=== PATIENT | male | born 1970 | race Caucasian/White ===

== ENCOUNTER 2023-10-10 10:57 | Emergency (ER) | payer BC, SELFPAY ==
[2023-10-10 11:00] VITALS: BP 145/98; PULSE 79; TEMP 36.4; O2SAT 97; BMI 35.3
--- NOTE | 2023-10-10 11:10 | PC.NURSE ---
swelling to right wrist with a strong radial pulse
--- NOTE | 2023-10-10 11:12 | XR_ITS ---
The [address] [address] Patient Name: JOVANY HOWELL MRN: [id number] date: 1970 Sex: M Assigned Patient Location: ED.MAIN Current Patient Location: ER Accession/Order Number: [id number] Exam Date: 10/10/2023 11:42 Report Date: 10/10/2023 12:18 At the request of: GEMMA BRODERICK Procedure: XR wrist RT min 3V EXAM: XR wrist RT min 3V HISTORY: pain and swelling and hx of surgery . Pain and swelling for the past 6 days. COMPARISON: None. TECHNIQUE: 3 views of the right wrist were obtained. FINDINGS: There is no apparent acute fracture or dislocation. There is diffuse narrowing of the radial scaphoid joint space and degenerative changes are seen throughout the wrist. There is widening of the scapholunate joint space with evidence of surgery and anchor sutures in place. Ulnar minus variance is present. No abnormal soft tissue calcifications are present. XR/XR wrist RT min 3V IMPRESSION: No acute fracture or dislocation. Significant degenerative changes are seen throughout the wrist. There is widening of the scapholunate joint space with evidence of prior surgery. Direct comparison with a previous study may be helpful in determining the chronicity of these findings. Electronically authenticated by: ROBYN ARAUJO Date: 10/10/2023 12:18
--- NOTE | 2023-10-10 13:27 | ED_ITS ---
HPI - Extremity Problem General Chief complaint: Extremity Problem, Nontraumatic Stated complaint: RT HAND PAIN Time Seen by Provider: 10/10/23 11:04 History of Present Illness HPI Narrative: The patient comes to the ER with right wrist pain that he is mentioned that started over the last few days,, he mentioned that he used to take indomethacin that he is almost running out of it for gout, he denies any fall or trauma, but he does have a history of previous surgery in that wrist with a possible scaphoid fracture as the patient was not able to tell me exactly what was surgery for Related Data Home Medications ?Medication ?Instructions ?Recorded ?Confirmed indomethacin 50 mg capsule 50 mg PO TID 10/10/23 10/10/23 Previous Rx's ?Medication ?Instructions ?Recorded amoxicillin 875 mg-potassium 1 tab PO BID 7 days #14 tabs 10/10/23 clavulanate 125 mg tablet prednisone 20 mg tablet 40 mg (2 x 20 mg) PO DAILY 5 days 10/10/23 #10 tabs Allergies Allergy/AdvReac Type Severity Reaction Status Date / Time labetalol Allergy Severe Verified 10/10/23 11:08 Review of Systems ROS Status of ROS 10 or more systems reviewed and unremark able except as noted in history and below Exam Narrative Exam Narrative: Nurses notes and vital signs reviewed and patient is not hypoxic. General: Well-appearing and in no apparent distress. Skin: Warm, dry, no pallor noted. No rash. Head: Normocephalic, atraumatic. Neck: Supple, non-tender. Eye: Pupils are equal, round and EOMI. No scleral icterus. Ears, Nose, Mouth, and Throat: TM are clear, no nasal mucosal hypertrophy. Oral mucosa is moist, no posterior oropharynx erythema, uvula is mid-line Cardiovascular: Regular Rate and Rhythm without murmur, gallop or rub. Respiratory: No accessory muscle use or respiratory distress. Lungs are clear to auscultation, no wheezing, rales or rhonchi Chest Wall: no tenderness Back: No midline thoracic or lumbar vertebral tenderness. No CVA tenderness Musculoskeletal: normal ROM, no calf or popliteal tenderness, no lower extremity edema/swelling, right upper extremity the patient have a tenderness upon palpation of the right wrist mostly medially with mild redness there is no hotness, there is a scar of previous surgery and there is limitation of flexion due to the swelling, GI: Abdomen is soft, non-distended. Normal bowel sounds. No masses appreciated. No tenderness to palpation. No rebound, guarding, or rigidity noted. Neurological: A&O x4. No cranial nerve dysfunction observed. No truncal ataxia. Moves all extremities. Sensation intact. Psychiatric: Cooperative and interactive. Normal mood and affect. Constitutional Vital Signs, click to edit/add: Last Vital Signs Temp 97.6 F 10/10/23 11:00 Pulse 79 10/10/23 11:00 Resp 18 10/10/23 11:00 BP 145/98 H 10/10/23 11:00 Pulse Ox 97 10/10/23 11:00 O2 Del Method Room Air 10/10/23 11:00 Course Vital Signs Vital signs: Vital Signs Temperature 97.6 F 10/10/23 11:00 Pulse Rate 79 10/10/23 11:00 Respiratory Rate 18 10/10/23 11:00 Blood Pressure 145/98 H 10/10/23 11:00 Pulse Oximetry 97 10/10/23 11:00 Oxygen Delivery Method Room Air 10/10/23 11:00 Temperature 97.6 F 10/10/23 11:00 Pulse Rate 79 10/10/23 11:00 Respiratory Rate 18 10/10/23 11:00 Blood Pressure 145/98 H 10/10/23 11:00 Pulse Oximetry 97 10/10/23 11:00 Oxygen Delivery Method Room Air 10/10/23 11:00 MDM - Extremity (Nontraumatic) MDM Narrative Medical decision making narrative: The patient denies any systemic symptoms of infection his x-ray in the right wrist showed no acute significant pathology but there is no comparison x-ray Right now the patient was treated with prednisone he is to take Tylenol with that for pain ,he also be covered with Augmentin just because of his high risk of infection as a prophylaxis Velcro splint applied and the patient will follow-up with his doctor within a week Patient instructed about any fever chills or increasing redness he is to come back to the ER Discharge Plan Discharge Stand Alone Forms: Portal Instructions Chief Complaint: Extremity Problem, Nontraumatic Clinical Impression: Gout Qualifiers: Gout site: wrist Gout etiology: unspecified cause Chronicity: acute Laterality: right Qualified Code(s): M10.9 - Gout, unspecified Patient Disposition: Home, Self-Care Time of Disposition Decision: 12:36 Condition: Good Mode of Transportation: Private Vehicle Prescriptions / Home Meds: New prednisone 20 mg tablet 40 mg PO DAILY 5 Days Qty: 10 0RF amoxicillin-pot clavulanate 875-125 mg tablet 1 tab PO BID 7 Days Qty: 14 0RF No Action indomethacin 50 mg capsule 50 mg PO TID Rx Instructions: administer with food or milk Print Language: [place] Citizen Instructions: Gout (ED) Referrals: MOY TERESA [Primary Care Provider] - 1 week Discharge Date/Time: 10/10/23 12:56
== END 2023-10-10 12:56 | disposition home or self-care (01) ==
PROVIDERS: Emergency Provider Emergency Medicine; PCP Family Medicine
DX: M10.9 Gout, unspecified (principal)
CPT/HCPCS: 73110; 99283

== ENCOUNTER 2025-03-18 10:12 | Outpatient (OUT) | payer OTHER, SELFPAY ==
--- OUTSIDE RECORDS SUMMARY | 2025-03-18 09:30 | XMS_ITS | Encounter Summary ---
Author Organization [facility] Address [address] [place] [address] Care Team Providers Care Lav Crewman Name Role Phone Favio Andujar MD Primary Care Provider + [phone] Reason for Visit * ReasonCommentsBack Pain Encounter Details DateTypeDepartmentCare Team (Latest Contact Info)Eyxqslzhcbs58/03/2025 9:30 AM ESTOffice Visit [facility] [place] [address] [facility] 112 [facility] [address] [place] [address] Favio Andujar MD 112 [facility] 100 [place] [address] (Fax) RUQ abdominal pain (Primary Dx) Social History Tobacco UseTypesPacks/DayYears UsedDateSmoking Tobacco: NeverSmokeless Tobacco: Never Tobacco Cessation:Counseling Given: Yes Alcohol UseStandard Drinks/WeekCommentsYes2 (1 standard drink = 0.6 oz pure alcohol)Sex and Gender InformationValueDate RecordedSex Assigned at BirthNot on fileLegal FtgKhoi5407/28/2022 6:54 PM EDTGender IdentityNot on fileSexual OrientationNot on filedocumented as of this encounter Last Filed Vital Signs Vital SignReadingTime TakenCommentsBlood Pressure--Pulse--Temperature-- Respiratory Rate--Oxygen Saturation--Inhaled Oxygen Concentration--Plpile900 kg (268 lb)03/18/2025 9:49 AM JPSMxnadw800.9 cm (6')03/18/2025 9:49 AM ESTBody Mass Index36.35105/18/2024 9:49 AM ESTdocumented in this encounter Plan of Treatment DateTypeDepartmentCare Team (Latest Contact Info)Gblqvhkuvgw42/04/2026 3:00 PM ESTOffice Visit [facility] [address] [place] [address] Domitila Napier MD [address] [place] [address] NameTypePriorityAssociated DiagnosesOrder ScheduleCBC and differentialLabSTAT RUQ abdominal pain Expected: 03/18/2025 (Approximate), Expires: 03/18/2026Hepatic function panelLab STAT RUQ abdominal pain Expected: 03/18/2025 (Approximate), Expires: 03/18/2026LipaseLabSTAT RUQ abdominal pain Expected: 03/18/2025 (Approximate), Expires: 03/18/2026documented as of this encounter Visit Diagnoses Diagnosis RUQ abdominal pain- Primary Abdominal pain, right upper quadrant documented in this encounter Care Teams Team MemberRelationshipSpecialtyStart DateEnd Date Favio Andujar MD [address] [address] PCP - GeneralFamily Uwjwiiic24/3/25documented as of this encounter
--- OUTSIDE RECORDS SUMMARY | 2025-03-18 10:18 | XMS_ITS | Encounter Summary ---
Author Organization [facility] Address [address] [place] [address] Care Team Providers Care Superintendent Storage Area Name Role Phone Favio Andujar MD Primary Care Provider [phone] Encounter Details DateTypeDepartmentCare Team (Latest Contact Info)Gwrskfdqlba47/03/2025amboo flowsheet [facility] [place] [address] Family Medicine [address] [place] [address] Favio Andujar MD [address] [place] [address] Social History Tobacco UseTypesPacks/DayYears UsedDateSmoking Tobacco: NeverSmokeless Tobacco: NeverAlcohol UseStandard Drinks/WeekCommentsYes2 (1 standard drink = 0.6 oz pure alcohol)Sex and Gender InformationValueDate RecordedSex Assigned at BirthNot on fileLegal FatXzje8807/28/2022 6:54 PM EDTGender IdentityNot on fileSexual OrientationNot on filedocumented as of this encounter Plan of Treatment DateTypeDepartmentCare Team (Latest Contact Info)Ksmppynldac31/04/2026 3:00 PM ESTOffice Visit [facility] [address] [place] [address] Domitila Napier MD [address] [place] [address] documented as of this encounter Visit Diagnoses Not on filedocumented in this encounter Care Teams Team MemberRelationshipSpecialtyStart DateEnd Date Favio Andujar MD [address] [address] PCP - GeneralFamily Peiacrbm67/3/25documented as of this encounter
--- OUTSIDE RECORDS SUMMARY | 2025-03-18 10:18 | XMS_ITS | Encounter Summary ---
Author Organization [facility] Address [address] [place] [address] Care Team Providers Care Program Coordinator Name Role Phone Favio Andujar MD Primary Care Provider + [phone] Encounter Details DateTypeDepartmentCare Team (Latest Contact Info)Jdtzcywjlgp48/03/2025Travel Social History Tobacco UseTypesPacks/DayYears UsedDateSmoking Tobacco: NeverSmokeless Tobacco: NeverAlcohol UseStandard Drinks/WeekCommentsYes2 (1 standard drink = 0.6 oz pure alcohol)Sex and Gender InformationValueDate RecordedSex Assigned at BirthNot on fileLegal IqyJtgz6507/28/2022 6:54 PM EDTGender IdentityNot on fileSexual OrientationNot on filedocumented as of this encounter Plan of Treatment DateTypeDepartmentCare Team (Latest Contact Info)Lsilfhzlneq82/04/2026 3:00 PM ESTOffice Visit [facility] [address] [facility] [address] [place] [address] Domitila Napier MD [address] [facility] [address] [place] [address] documented as of this encounter Visit Diagnoses Not on filedocumented in this encounter Care Teams Team MemberRelationshipSpecialtyStart DateEnd Date Favio Andujar MD [address] [place] [address] [place] [address] PCP - GeneralFamily Muyszayp82/3/25documented as of this encounter
--- OUTSIDE RECORDS SUMMARY | 2025-03-18 10:18 | XMS_ITS | Clinical Summary ---
Author Organization [facility] Address [address] [place] [address] Care Team Providers Care Director Safety Name Role Phone Favio Andujar MD Primary Care Provider [phone] Allergies Active AllergyReactionsCriticalityNoted OkqhMabrgwofMsfprgosv78/11/2023 Other Reaction(s): heart stopped Medications MedicationSigDispense QuantityRefillsLast FilledStart DateEnd DateStatus ibuprofen 200 MG tablet Take 200 mg by mouth in the morning and 200 mg in the evening and 200 mg before bedtime.Active acetaminophen (Tylenol) 500 MG tablet Take 1,000 mg by mouth every 6 (six) hours if needed for mild painActive indomethacin (Indocin) 50 MG capsule Take 50 mg by mouth in the morning and 50 mg in the evening. Take with meals. Active cholecalciferol (Vitamin D-[address]) 25 MCG (1000 UT) tablet Take 1,000 Units by mouth in the morning.Active cyanocobalamin (Vitamin B-12) 250 MCG tablet Take 250 mcg by mouth in the morning.Active Docusate Sodium (DSS) 100 MG capsule Take 100 mg by mouth in the morning and 100 mg in the evening.07/12/2024tive zinc gluconate 50 MG tablet Take 50 mg of elemental zinc by mouth in the morning.Active aspirin 325 MG EC tablet Take 325 mg by mouth in the morning and 325 mg in the evening.07/12/2024 03/18/2025Discontinued(Med list cleanup) gabapentin (Neurontin) 300 MG capsule Take 300 mg by mouth at cwawsag59Discontinued(Med list cleanup) magnesium lactate CR (Magtab) 84 MG (7MEQ) ER tablet Take 84 mg by mouth in the morning.03/18/2025Discontinued meloxicam (Mobic) 15 MG tablet Take 15 mg by mouth Daily as qmmvch22Discontinued(Med list cleanup) oxyCODONE (Roxicodone) 5 MG immediate release tablet Take 5 mg by mouth every 6 (six) hours if ssfjwo64Discontinued (Med list cleanup) Active Problems ProblemNoted DateDiagnosed DateLoss of rypnjj6506/25/2024Testosterone deficiency 06/25/2024Excess estrogen in male06/25/2024History of closed dislocation of soieieua62/05/2025Non morbid obesity due to excess bremtsnl22/17/2024icuspid aortic valve (HHS-HCC)11/23/2022hronic htowilg5811/23/2022hronic rhinitis 11/23/2022Heart enitqj4411/23/2022Internal /11/2023Irritable bowel syndrome with fanyfgbw93/11/2023Mild intermittent asthma without complication 11/23/2022Mixed nxbicctmnxev54/11/2023Morbid obesity due to excess calories 11/23/2022Nonrheumatic aortic valve ghcshjiehkshp44/11/2023OSA (obstructive sleep apnea)11/23/2022ulmonary ycevfpcapscj44/11/2023Seborrheic keratoses 11/23/2022Stage 2 chronic kidney embqhyq3111/23/20227911Gihnghlyglaik26/30/2023 Resolved Problems ProblemNoted DateDiagnosed DateResolved DateSpecial screening for malignant neoplasms, colon/cute gout/ Encounters DateTypeDepartmentCare JybuWtkkqyqpqns85/03/2025 9:30 AM ESTOffice Visit [facility] [place] [address] [place] [address] Favio Andujar MD RUQ abdominal pain (Primary Dx)03/18/2025amboo flowsheet [facility] [place] [address] [facility] [address] [facility] [address] [place] [address] Favio Andujar MD 03/18/20254073Ygjmxp99/19/2025Orders Only [facility] [address] [place] [address] Favio Andujar MD 02/28/2025Telephone [facility] [place] [address] [facility] Medicine [address] [facility] [address] [place] [address] Bernabe Jailyn, KELVIN from Last 3 Months Family History Medical HistoryRelationNameCommentsNo Known ProblemsChild2 sons, 1 daughter ArrhythmiaFatherDiabetesFatherNo Known ProblemsMaternal GrandmotherNo Known ProblemsMotherBreast cancerNeg HxColon cancerNeg HxMelanomaNeg HxOvarian cancer Neg HxRelationNameStatusCommentsChildAliveDaughterAliveFatherAliveMaternal GrandmotherMotherAliveSonAlivex2 Social History Tobacco UseTypesPacks/DayYears UsedDateSmoking Tobacco: NeverSmokeless Tobacco: Never Tobacco Cessation:Counseling Given: Yes Alcohol UseStandard Drinks/WeekCommentsYes2 (1 standard drink = 0.6 oz pure alcohol)Sex and Gender InformationValueDate RecordedSex Assigned at BirthNot on fileLegal OxrXajy7807/28/2022 6:54 PM EDTGender IdentityNot on fileSexual OrientationNot on file Last Filed Vital Signs Vital SignReadingTime TakenCommentsBlood Veivxgez776/8808 3:04 PM EDT Pulse--Temperature--Respiratory Rate--Oxygen Saturation--Inhaled Oxygen Concentration--Ykjuqy238 kg (268 lb)03/18/2025 9:49 AM QHEAagzre202.9 cm (6') 03/18/2025 9:49 AM ESTBody Mass Index36.35105/18/2024 9:49 AM EST Plan of Treatment DateTypeDepartmentCare Team (Latest Contact Info)Wuyjyorsbdf54/04/2026 3:00 PM ESTOffice Visit [facility] [address] [place] [address] Domitila Napier MD [address] [place] [address] Health MaintenanceDue DateLast DoneCommentsCT Yppywblhegqn1972FIT-DNA 1970FIT1970FOBT1970 6899Eqxaxztnuifzr1972Influenza Vaccine (#1)2025Postponed from 01/14/2025 (Patient Refused)Yiqvjmcwikd75/13/2033 01/26/2023olorectal Cancer Pridkbgnu54/13/2033COVID-19 VaccineDiscontinued 1Pneumococcal Vaccine: Pediatrics (0 to 5 Years) and At-Risk Patients (6 to 64 Years)Discontinued Procedures Procedure NamePriorityDate/TimeAssociated DiagnosisCommentsHM COLONOSCOPYRoutine 01/26/2023 10:32 PM EDTfrom Last 3 Months or Most Recently Relevant to Health Maintenance Results * Colonoscopy (01/26/2023 10:32 PM EDT)Anatomical RegionLateralityModality Other Narrative Authorizing ProviderResult TypeResult StatusEdingris Andujar MDHEALTH MAINTENANCEFinal Result from Last 3 Months or Most Recently Relevant to Health Maintenance Insurance * Guarantor: Sagar Lopezcocheng TypeRelation to PatientDate of BirthPhoneBilling AddressPersonal/ClxucvHlzj1970 [address] [address] Care Teams Team MemberRelationshipSpecialtyStart DateEnd Date Favio Andujar MD [address] [address] [facility] Wmyjfhbg67/3/25
--- OUTSIDE RECORDS SUMMARY | 2025-03-18 10:19 | XMS_ITS | Clinical Summary ---
Author Organization [facility] Address [address] [place] [address] Care Team Providers Care Molded Grid And Parts Inspector Name Role Phone Unavailable Primary Care Provider Unavailabl e Social History Tobacco UseTypesPacks/DayYears UsedDateSmoking Tobacco: Never AssessedUT Safety & EnvironmentAnswerDate RecordedFear of Current or Ex-PartnerNot on file 07/07/2023Emotionally AbusedNot on file07/07/2023hysically AbusedNot on file 07/07/2023Sexually AbusedNot on file07/07/2023hysically or Sexually AbusedNot on file07/07/2023Sex and Gender InformationValueDate RecordedSex Assigned at BirthNot on fileLegal KecJgys2511/11/2021 9:32 PM EDTGender IdentityNot on file Sexual OrientationNot on file Plan of Treatment Not on file
--- OUTSIDE RECORDS SUMMARY | 2025-03-18 10:19 | XMS_ITS | Clinical Summary ---
Author Organization [facility] Address [address] [place] [address] Phone Care Team Providers Care Machine Rug Cleaner Name Role Phone Favio Andujar MD Primary Care Provider + [phone] Allergies Active AllergyReactionsCriticalityNoted DateCommentsLabetalolCardiac arrhythmia/cvcogn8806/20/2024 Medications MedicationSigDispense QuantityRefillsLast FilledStart DateEnd DateStatus cholecalciferol (Vitamin D3) 25 mcg (1000 units) tablet Take 1 tablet (1,000 Units) by mouth once daily.Active cyanocobalamin (Vitamin B-12) 250 mcg tablet Take 1 tablet (250 mcg) by mouth once daily.Active magnesium lactate CR (Magtab) 84 mg ER tablet Take 1 tablet (84 mg) by mouth once daily.Active zinc gluconate 50 mg tablet Take 1 tablet (50 mg of elemental zinc) by mouth once daily.Active krill/om-3/dha/epa/phospho/ast (OMEGA-3 KRILL OIL ORAL) Take 1 Dose by mouth once daily.Active gabapentin (Neurontin) 300 mg capsule Indications:Acute post-operative painTake 1 capsule (300 mg) by mouth once daily at bedtime. 5 capsule 07/12/2024 4:00 PM EST5Active acetaminophen (Tylenol) 500 mg tablet Indications:Acute post-operative painTake 2 tablets (1,000 mg) by mouth every 8 hours if needed for mild pain (1 - 3). 90 tablet 07/12/2024 4:00 PM EST5Active meloxicam (Mobic) 15 mg tablet Indications:Acute post-operative painTake 1 tablet (15 mg) by mouth once daily as needed (for pain). 20 tablet 07/12/2024 4:00 PM EST5Active oxyCODONE (Roxicodone) 5 mg immediate release tablet Indications:Acute post-operative painTake 1 tablet (5 mg) by mouth every 6 hours if needed for severe pain (7 - 10). 28 tablet 07/12/2024 4:00 PM EST5Active docusate sodium (Colace) 100 mg capsule Indications:Acute post-operative painTake 1 capsule (100 mg) by mouth 2 times a day. While taking narcotic pain medication (oxycodone) to prevent constipation 20 capsule 07/12/2024 4:00 PM EST5Active aspirin 325 mg EC tablet Indications:Acute post-operative painTake 1 tablet (325 mg) by mouth 2 times a day. For four weeks to prevent blood clots 56 tablet 07/12/2024 4:00 PM EST5Active Active Problems ProblemNoted DateDiagnosed DateComplete tear of right rotator cuff06/22/2024 Incomplete tear of right rotator cuff06/22/2024iceps tendinitis of right pbkupzqh87/07/2025Impingement syndrome of right vfnljekd38/07/2025Labral tear of shoulder, right, initial bzsodjmzg51/07/2025rthralgia of right acromioclavicular joint06/22/2024Traumatic complete tear of right rotator cuff 06/22/2024 Social History Tobacco UseTypesPacks/DayYears UsedDateSmoking Tobacco: NeverSmokeless Tobacco: Never Tobacco Cessation:Counseling Given: Not Answered Alcohol UseStandard Drinks/WeekCommentsYes0 (1 standard drink = 0.6 oz pure alcohol)rareSex and Gender InformationValueDate RecordedSex Assigned at BirthNot on fileLegal IkdCvwg6606/18/2024 9:01 AM ESTGender IdentityNot on fileSexual OrientationNot on file Last Filed Vital Signs Vital SignReadingTime TakenCommentsBlood Wuqbynij413/7907/12/2024 4:30 PM EST Tjthv970207/12/2024 4:30 PM SEPWsgixrcntlt57.6 ??C (97.9 ??F)07/12/2024 3:18 PM ESTRespiratory Eucr157407/12/2024 3:48 PM ESTOxygen Uerpqufnxd56%07/12/2024 4:30 PM ESTInhaled Oxygen Concentration--Wpuggt049 kg (264 lb)10/31/2024 2:51 PM EDT Fyernw391.9 cm (6')10/31/2024 2:51 PM EDTBody Mass Index35.8010/31/2024 2:51 PM EDT Plan of Treatment Health MaintenanceDue DateLast DoneCommentsCT Pwqxtilssotk1972Colonoscopy 1972Colorectal Cancer Iyzrybrno1972FIT-DNA (Cologuard)1972FIT 1972HIV Tzrlrugxf1972Lipid Panel1972 1409Dxplsuskvqrtn1972 Yearly Adult Fgpzidny1972MMR Vaccines (1 of 1 - Standard series)02/18/1973 Hepatitis C Vzlsnohei08/06/1990CKD: Urine Protein Dgaypjoso80/06/1991Hepatitis B Vaccines (1 of 3 - 19+ 3-dose series)02/18/1991Pneumococcal Vaccine (1 of 2 - PCV)02/18/1991DTaP/Tdap/Td Vaccines (1 - Tdap)02/18/1994PSA Prostate Cancer Kdynzdwah84/06/2022Zoster Vaccines (1 of 2)02/18/2022Influenza Vaccine (#1) 5COVID-19 Vaccine (2 - season)5001/14/2021iabetes Clzibwcyg67HIB VaccinesAged OutNo longer eligible based on patient's age to complete this topicHPV VaccinesAged OutNo longer eligible based on patient's age to complete this topicHepatitis A VaccinesAged OutNo longer eligible based on patient's age to complete this topicIPV VaccinesAged OutNo longer eligible based on patient's age to complete this topicMeningococcal VaccineAged OutNo longer eligible based on patient's age to complete this topic Rotavirus VaccinesAged OutNo longer eligible based on patient's age to complete this topic Medical Devices ImplantedTypeAreaManufacturerDevice IdentifierShelf Expiration DateModel / Serial / LotAnchor, Versaloop, 2 Suture, 2.5mm - Sna - [id number] Implanted:Qty: 1 on 07/12/2024 by Ramin Howard MD at [facility] ImplantRight: ShoulderJ & J DEPUY [id number] / NA / [id number], Versaloop, 2 Suture, 2.5mm - Sna - [id number] Implanted:Qty: 1 on 07/12/2024 by Ramin Howard MD at [facility] ImplantRight: ShoulderJ & J DEPUY [id number]//[id number] / NA / [id number], Healix, 5.5 Adv Sp Bioc - Sna - [id number] Implanted:Qty: 1 on 07/12/2024 by Ramin Howard MD at [facility] ImplantRight: ShoulderJ & J DEPUY [id number] / NA / 100MCSAnchor, Healix, 5.5 Adv Sp Bioc - Sna - [id number] Implanted:Qty: 1 on 07/12/2024 by Ramin Howard MD at [facility] ImplantRight: ShoulderJ & J DEPUY [id number] / NA / [id number], [place], Advance, 8 X 23mm - Sna - [id number] Implanted:Qty: 1 on 07/12/2024 by Ramin Howard MD at [facility] ScrewRight: ShoulderJ & J DEPUY [id number] / NA / [id number] Procedures Procedure NamePriorityDate/TimeAssociated DiagnosisCommentsBASIC METABOLIC PANEL Gfxkxki9307/05/2024 1:52 PM EST Preoperative examination Complete tear of right rotator cuff, unspecified whether traumatic from Last 3 Months or Most Recently Relevant to Health Maintenance Results * (ABNORMAL) Basic Metabolic Panel (07/05/2024 1:52 PM EST)ComponentValueRef RangeTest MethodAnalysis TimePerformed AtPathologist EbjqmzqvjXqqljms554(H)74 - 99 mg/dL LAB CHEMISTRY METHOD 07/05/2024 2:35 PM [facility] FLDGgsvcv217919 - 145 mmol/L LAB CHEMISTRY METHOD 07/05/2024 2:35 PM [facility] LABPotassium4.23.5 - 5.3 mmol/L LAB CHEMISTRY METHOD 07/05/2024 2:35 PM [facility] WUKKxljgnsk21375 - 107 mmol/L LAB CHEMISTRY METHOD 07/05/2024 2:35 PM [facility] UUJOcjpbabffpk3093 - 32 mmol/L LAB CHEMISTRY METHOD 07/05/2024 2:35 PM [facility] LABAnion Ddv1620 - 20 mmol/L LAB CHEMISTRY METHOD 07/05/2024 2:35 PM [facility] LABUrea Kvhqlfrr632 - 23 mg/dL LAB CHEMISTRY METHOD 07/05/2024 2:35 PM [facility] LABCreatinine0.930.50 - 1.30 mg/dL LAB CHEMISTRY METHOD 07/05/2024 2:35 PM [facility] LABeGFR>90>60 mL/min/1.73m*2 LAB CHEMISTRY METHOD 07/05/2024 2:35 PM [facility] LABComment: Calculations of estimated GFR are performed using the 2020 CKD-EPI Study Refit equation without therace variable for the IDMS-Traceable creatinine methods. https://jasn.asnjournals.org/content//ASN.1519890409 Calcium9.58.6 - 10.3 mg/dL LAB CHEMISTRY METHOD 07/05/2024 2:35 PM [facility] LABSpecimen (Source)Anatomical Location / LateralityCollection Method / VolumeCollection TimeReceived TimeBlood Venous blood specimen / UnknownVenipuncture / Nbtxdkr0607/05/2024 1:52 PM EST 07/05/2024 2:14 PM EST Narrative Authorizing ProviderResult TypeResult StatusHelena Edwards HOME BASED ASSISTANT-CNPLAB BLOOD ORDERABLESFinal ResultPerforming OrganizationAddressCity/State/ZIP CodePhone Number [facility] [address] [place] [address] from Last 3 Months or Most Recently Relevant to Health Maintenance Insurance * Guarantor: Jules Lopez TypeRelation to PatientDate of BirthPhoneBilling AddressPersonal/OiolsbUxql[address] [place], [place] [id number] MemberSubscriberPlan / Payer (Effective 2024-Present)Name:Sagar Lopez Relation to Subscriber:SelfName:Sagar Lopez Payer ID:[id number] (NAIC) Type:Not on file Address: [address] [place], [place] [id number] * Guarantor: Jules Lopez TypeRelation to PatientDate of BirthPhoneBilling AddressPersonal/QhvlzvRlav[address] [place] [id number] Care Teams Team MemberRelationshipSpecialtyStart DateEnd Favio Childers MD [address] [place] [address] PCP - GeneralFamily Medicine07/03/24
[2025-03-18 10:40] LABS: Hematocrit 47.4 % (42.0-54.0); Hemoglobin 16.5 g/dL (14.0-18.0); Immature Granulocytes Abs Auto 0.02 10^3/uL (0.00-0.03); Immature Granulocytes Pct Auto 0.3 % (0.0-0.5); Lymphocytes Absolute Auto 1.5 10^3/uL (1.2-3.8); Mean Corpuscular HGB Conc 34.8 g/dL (29.9-35.2); Mean Corpuscular Hemoglobin 30.7 pg (25.9-34.0); Mean Corpuscular Volume 88.1 fL (80.0-94.0); Platelet Count 240 10^3/uL (150-450); Red Blood Count 5.38 10^6/uL (4.70-6.10); White Blood Count 6.6 10^3/uL (4.0-11.0)
[2025-03-18 10:59] LABS: Alanine Aminotransferase 61 U/L (16-63); Albumin Globulin Ratio 1.2; Albumin Level 4.2 g/dL (3.4-5.0); Alkaline Phosphatase 89 U/L (46-116); Aspartate Amino Transferase 24 U/L (15-37); Globulin 3.5 g/dL; Lipase 40.0 U/L (16.0-77.0); Total Protein 7.7 g/dL (6.4-8.2)
== END 2025-03-18 10:13 | disposition home or self-care (01) ==
LOC: LAB 10:15
PROVIDERS: PCP Family Medicine; Visit Provider Family Medicine
DX: R10.11 Right upper quadrant pain (principal)
CPT/HCPCS: 36415; 80076; 83690; 85025

== ENCOUNTER 2025-04-09 07:38 | Outpatient (OUT) | payer OTHER, SELFPAY ==
--- OUTSIDE RECORDS SUMMARY | 2025-03-26 08:30 | XMS_ITS | Encounter Summary ---
Author Organization [facility] Address [address] [place] [address] Care Team Providers Care Remote Medical Coder Name Role Phone Favio Andujar MD Primary Care Provider + [phone] Encounter Details DateTypeDepartmentCare Team (Latest Contact Info)Utuoepdvasj25/11/2025 8:30 AM ESTAncillary Procedure [facility] [address] [place] [address] RUQ abdominal pain; Chronic constipation Social History Tobacco UseTypesPacks/DayYears UsedDateSmoking Tobacco: NeverSmokeless Tobacco: NeverAlcohol UseStandard Drinks/WeekCommentsYes2 (1 standard drink = 0.6 oz pure alcohol)Sex and Gender InformationValueDate RecordedSex Assigned at BirthNot on fileLegal HafQged0907/28/2022 6:54 PM EDTGender IdentityNot on fileSexual OrientationNot on filedocumented as of this encounter Plan of Treatment DateTypeDepartmentCare Team (Latest Contact Info)Lnlcnvtabap19/04/2026 3:00 PM ESTOffice Visit [facility] [address] [place] [address] Domitila Napier MD [address] [place] [address] documented as of this encounter Procedures Procedure NamePriorityDate/TimeAssociated DiagnosisCommentsUS RUQRoutine 03/26/2025 8:44 AM EST RUQ abdominal pain Chronic constipation documented in this encounter Results * US RUQ (03/26/2025 8:44 AM EST)Anatomical RegionLateralityModalityAbdomen UltrasoundSpecimen (Source)Anatomical Location / LateralityCollection Method / VolumeCollection TimeReceived Time03/27/2025 10:05 AM EST Impressions 03/27/2025 10:08 AM EST Hepatomegaly and hepatic steatosis. ELECTRONICALLY SIGNED BY: Manuel Leos DO Narrative 03/27/2025 10:08 AM EST EXAMINATION: US RUQ HISTORY: Right upper quadrant pain COMPARISON: None available TECHNIQUE: Ultrasound evaluation was performed of the right upper quadrant of the abdomen FINDINGS: Increased echogenicity of the liver compatible with hepatic steatosis with focal fatty sparing at the gallbladder fossa. Normal contour of the liver. No liver lesion or intrahepatic biliary dilatation identified. Liver length measured at approximately 19.5 cm. The gallbladder is physiologically distended. No cholelithiasis or pericholecystic fluid. Gallbladder wall thickness is normal measured atapproximately 2.2 mm. Common bile duct is normal measuring approximately 4.8 mm in diameter. No overt abnormality of the pancreas. Procedure Note Manuel Leos DO - 03/27/2025 EXAMINATION: US RUQ HISTORY: Right upper quadrant pain COMPARISON: None available TECHNIQUE: Ultrasound evaluation was performed of the right upper quadrantof the abdomen FINDINGS: Increased echogenicity of the liver compatible with hepatic steatosis withfocal fatty sparing at the gallbladder fossa. Normal contour of the liver.No liver lesion or intrahepatic biliary dilatation identified. Liverlength measured at approximately 19.5 cm. The gallbladder isphysiologically distended. No cholelithiasis or pericholecystic fluid.Gallbladder wall thickness is normal measured at approximately 2.2 mm.Common bile duct is normal measuring approximately 4.8 mm in diameter. Noovert abnormality of the pancreas. IMPRESSION: Hepatomegaly and hepatic steatosis. ELECTRONICALLY SIGNED BY: Manuel Leos DO Authorizing ProviderResult TypeResult StatusEdingris COBB US PROCEDURES Final Result documented in this encounter Visit Diagnoses Diagnosis RUQ abdominal pain Abdominal pain, right upper quadrant Chronic constipation Unspecified constipation documented in this encounter Care Teams Team MemberRelationshipSpecialtyStart DateEnd Date Favio Andujar MD [id number] PCP - GeneralFamily Wsuhnbkc17/3/25documented as of this encounter
--- OUTSIDE RECORDS SUMMARY | 2025-04-09 07:41 | XMS_ITS | Clinical Summary ---
Author Organization [facility] Address [address] [place] [address] Care Team Providers Care Gas Brazer Name Role Phone Favio Andujar MD Primary Care Provider [phone] Allergies Active AllergyReactionsCriticalityNoted VkmfOmsuaxkvIltipapxh34/11/2023 Other Reaction(s): heart stopped Medications MedicationSigDispense QuantityRefillsLast [...] capsule Take 300 mg by mouth at wclviry46Discontinued(Med list cleanup) magnesium lactate CR (Magtab) 84 MG (7MEQ) ER tablet Take 84 mg by mouth in the morning.03/18/2025Discontinued meloxicam (Mobic) 15 MG tablet Take 15 mg by mouth Daily as elmglo88Discontinued(Med list cleanup) oxyCODONE (Roxicodone) 5 MG immediate release tablet Take 5 mg by mouth every 6 (six) hours if wyxukh29Discontinued (Med list cleanup) Active Problems ProblemNoted DateDiagnosed DateFatty liver04/03/2025Loss of bfegri7806/25/2024 Testosterone hreupktzgm06/10/2025Excess estrogen in male06/25/2024History of closed dislocation of vfsgtlla82/05/2025Non morbid obesity due to excess dadqokur84/17/2024icuspid aortic valve (HHS-HCC)11/23/2022hronic fatigue 11/23/2022hronic qtfdyanc04/11/2023Heart txvsbj6111/23/2022Internal hemorrhoids 11/23/2022Irritable bowel syndrome with tjpfgpvu39/11/2023Mild intermittent asthma without khaylyybajnh44/11/2023Mixed qccqqwyroqpe10/11/2023Morbid obesity due to excess msmpfcre52/11/2023Nonrheumatic aortic valve insufficiency 11/23/2022OSA (obstructive sleep apnea)11/23/2022ulmonary hypertension 11/23/2022Seborrheic apgiavpgd55/11/2023Stage 2 chronic kidney rhvhjpb2511/23/2022 Qjqjeezftayyr85/30/2023 Resolved Problems ProblemNoted DateDiagnosed DateResolved DateSpecial screening for malignant neoplasms, colon/cute gout/ Encounters DateTypeDepartmentCare XhscWidbmjmsdrl91/19/2025Telephone [facility] [address] [address] [place] [address] Melissa Lopez RN Care Flczjxscilvf94/12/2025Results Follow-Up [facility] [address] [facility] [address] [place] [address] Favio Andujar MD RUQ11 8:30 AM ESTAncillary Procedure [facility] [address] [place] [phone] RUQ abdominal pain; Chronic /11/5655Cmvvdw88/03/2025 9:30 AM ESTOffice Visit [facility] [address] [facility] [address] [place] [address] Favio Andujar MD RUQ abdominal pain (Primary Dx); Chronic crmzvopwojzi63/03/2025Results Follow-Up [facility] [address] [facility] [address] [place] [address] Favio Andujar MD ALL CBC WITH AUTO DIFF, HMHP LIVER PANEL, [facility] POCFDU3703/18/2025linisync Result Encounter [facility] External Department Unsolicited Favio Andujar MD 03/18/2025amboo flowsheet [facility] [place] [address] [facility] [address] [place] [address] Favio Andujar MD 03/18/20259190Zxvxlk85/19/2025Orders Only [facility] [address] [facility] [place] [address] Favio Andujar MD 02/28/2025Telephone [facility] [place] [facility] [address] [facility] [address] [place] [address] Bernabe August, KELVIN from Last 3 Months Family History Medical HistoryRelationNameCommentsNo Known ProblemsChild2 sons, 1 daughter ArrhythmiaFatherDiabetesFatherNo Known ProblemsMaternal GrandmotherNo Known ProblemsMotherBreast cancerNeg HxColon cancerNeg HxMelanomaNeg HxOvarian cancer Neg HxRelationNameStatusCommentsChildAliveDaughterAliveFatherAliveMaternal GrandmotherMotherAliveSonAlivex2 Social History Tobacco UseTypesPacks/DayYears UsedDateSmoking Tobacco: NeverSmokeless Tobacco: Never Tobacco Cessation:Counseling Given: Yes Alcohol UseStandard Drinks/WeekCommentsYes2 (1 standard drink = 0.6 oz pure alcohol)Sex and Gender InformationValueDate RecordedSex Assigned at BirthNot on fileLegal VhtTvby7807/28/2022 6:54 PM EDTGender IdentityNot on fileSexual OrientationNot on file Last Filed Vital Signs Vital SignReadingTime TakenCommentsBlood Vjhnapvw751/8808 3:04 PM EDT Pulse--Temperature--Respiratory Rate--Oxygen Saturation--Inhaled Oxygen Concentration--Knpmkm087 kg (268 lb)03/18/2025 9:49 AM SLBCjfove449.9 cm (6') 03/18/2025 9:49 AM ESTBody Mass Index36.35105/18/2024 9:49 AM EST Plan of Treatment DateTypeDepartmentCare Team (Latest Contact Info)Lkyjgudjfoz24/04/2026 3:00 PM ESTOffice Visit [facility] [address] [place] [address] Domitila Napier MD [address] [place] [address] Health MaintenanceDue DateLast DoneCommentsCT Trijqxdzepiw1972FIT-DNA 1972FIT1972FOBT1972 9989Tjqgwdbxtkmdg1972Influenza Vaccine (#1)2025Postponed from 01/14/2025 (Patient Refused)Jmsrkyhbmif63/13/2033 01/26/2023olorectal Cancer Vhvfedkee81/13/2033OVID-19 VaccineDiscontinued 1Pneumococcal Vaccine: Pediatrics (0 to 5 Years) and At-Risk Patients (6 to 64 Years)Discontinued Procedures Procedure NamePriorityDate/TimeAssociated DiagnosisCommentsUS RUQRoutine 03/26/2025 8:44 AM EST RUQ abdominal pain Chronic constipation [facility] GRUMYNJhvmgou74/03/2025 10:25 AM EST HP LIVER MLEOUKuhcqat95/03/2025 10:25 AM EST ALL CBC WITH AUTO NVXZCweihqq21/03/2025 10:25 AM EST HM MIJKKXYOBKZEcswtxc06/13/2023 10:32 PM EDTfrom Last 3 Months or Most Recently Relevant to Health Maintenance Results * US RUQ (03/26/2025 8:44 AM EST)Anatomical RegionLateralityModalityAbdomen UltrasoundSpecimen (Source)Anatomical Location / LateralityCollection Method / VolumeCollection TimeReceived Time03/27/2025 10:05 AM EST Impressions 03/27/2025 10:08 AM EST Hepatomegaly and hepatic steatosis. ELECTRONICALLY SIGNED BY: DO Adalberto Perdomo 03/27/2025 10:08 AM EST EXAMINATION: US RUQ [...] BY: Manuel Leos DO Authorizing ProviderResult TypeResult April Andujar MDMacy US PROCEDURES Final Result * [facility] LIVER PANEL (03/18/2025 10:25 AM EST)ComponentValueRef RangeTest Method Analysis TimePerformed AtPathologist SignatureBILIRUBIN TOTAL0.90.2 - 1.0 mg/dLTBHBILIRUBIN DIRECT0.20.0 - 0.2 mg/dLTBHASPARTATE AMINO PEXESVOJBCY5076 - 37 U/LTBHALANINE CODKRBMQWYRJUTIC5252 - 63 U/LTBHALKALINE AFQKIJZWLMF5406 - 116 U/LTBHTOTAL PROTEIN7.76.4 - 8.2 g/dLTBHALBUMIN LEVEL4.23.4 - 5.0 g/dLTBH GLOBULIN3.5g/dLTBHALBUMIN GLOBULIN RATIO1.2TBHSpecimen (Source)Anatomical Location / LateralityCollection Method / VolumeCollection TimeReceived Time 03/18/2025 10:25 AM EST03/18/2025 10:30 AM EST Narrative [facility] - 03/18/2025 10:59 AM EST Authorizing ProviderResult TypeResult StatusFavio Andujar MDCLINISYNCFinal ResultPerforming OrganizationAddressCity/State/ZIP CodePhone Number [facility] * [facility] LIPASE (03/18/2025 10:25 AM EST)ComponentValueRef RangeTest MethodAnalysis TimePerformed AtPathologist NyjmtijsvIAMOGR12.016.0 - 77.0 U/LTBHSpecimen (Source)Anatomical Location / LateralityCollection Method / VolumeCollection TimeReceived Time03/18/2025 10:25 AM EST03/18/2025 10:30 AM EST Narrative [facility] - 03/18/2025 10:59 AM EST Authorizing ProviderResult TypeResult April Andujar MDCLINISYNCFinal ResultPerforming OrganizationAddressCity/State/ZIP CodePhone Number [facility] * (ABNORMAL) ALL CBC WITH AUTO DIFF (03/18/2025 10:25 AM EST)ComponentValueRef RangeTest MethodAnalysis TimePerformed AtPathologist SignatureTBH WBC6.64.0 - 11.0 10 3/uLTBHTBH RBC5.384.70 - 6.10 10 6/uLTBHTBH HGB16.514.0 - 18.0 g/dLTBH TBH HCT47.442.0 - 54.0 %TBHTBH MCV88.180.0 - 94.0 fLTBHTBH MCH30.725.9 - 34.0 pgTBHTBH MCHC34.829.9 - 35.2 g/dLTBHTBH RDW12.211.0 - 15.0 %TBHTBH QVM954347 - 450 10 3/uLTBHTBH MPV9.2(L)9.5 - 13.5 fLTBHNEUTROPHILS PERCENT AUTO64.243.0 - 75.0 %TBHLYMPHOCYTES PERCENT AUTO22.620.5 - 60.0 %TBHMONOCYTES PERCENT AUTO9.9 1.7 - 12.0 %TBHTBH EO %2.40.9 - 7.0 %TBHBASOPHILS PERCENT AUTO0.60.2 - 2.0 % TBHIMMATURE GRANULOCYTES PCT AUTO0.30.0 - 0.5 %TBHNEUTROPHILS ABSOLUTE AUTO4.3 1.4 - 6.5 10 3/uLTBHLYMPHOCYTES ABSOLUTE AUTO1.51.2 - 3.8 10 3/uLTBHMONOCYTES ABSOLUTE AUTO0.70.3 - 0.8 10 3/uLTBHTBH EO #0.20.0 - 0.7 10 3/uLTBHBASOPHILS ABSOLUTE AUTO0.00.0 - 0.1 10 3/uLTBHIMMATURE GRANULOCYTES ABS AUTO0.020.00 - 0.03 10 3/uLTBHSpecimen (Source)Anatomical Location / LateralityCollection Method / VolumeCollection TimeReceived Time03/18/2025 10:25 AM EST03/18/2025 10:30 AM EST Narrative [facility] - 03/18/2025 10:47 AM EST Authorizing ProviderResult TypeResult StatusFavio Andujar MDCLINISYNCFinal ResultPerforming OrganizationAddressCity/State/ZIP CodePhone Number [facility] * Hm Colonoscopy (01/26/2023 10:32 PM EDT)Anatomical RegionLateralityModality Other Narrative Authorizing ProviderResult TypeResult StatusEdingris Andujar MDHEALTH MAINTENANCEFinal Result from Last 3 Months or Most Recently Relevant to Health Maintenance Insurance * Guarantor: Sagar Lopez PAccount TypeRelation to PatientDate of BirthPhoneBilling AddressPersonal/LebpotCphs1970 [id number] [address] Care Teams Team MemberRelationshipSpecialtyStart DateEnd Favio Andujar MD [address] [address] PCP - GeneralFamily Bbrbsmnq80/3/25
--- OUTSIDE RECORDS SUMMARY | 2025-04-09 07:41 | XMS_ITS | Clinical Summary ---
Author Organization [facility] Address [address] [place] [address] Phone Care Team Providers Care General Utility Worker Name Role Phone Favio Andujar MD Primary Care Provider + [phone] Allergies Active AllergyReactionsCriticalityNoted DateCommentsLabetalolCardiac arrhythmia/wnfflf1906/20/2024 Medications MedicationSigDispense QuantityRefillsLast FilledStart DateEnd DateStatus cholecalciferol [...] of right rotator cuff06/22/2024iceps tendinitis of right wnuhtymb77/07/2025Impingement syndrome of right dcqpcrba05/07/2025Labral tear of shoulder, right, initial /07/2025rthralgia of right acromioclavicular joint06/22/2024Traumatic complete tear of right rotator cuff 06/22/2024 Social History Tobacco UseTypesPacks/DayYears UsedDateSmoking Tobacco: NeverSmokeless Tobacco: Never Tobacco Cessation:Counseling Given: Not Answered Alcohol UseStandard Drinks/WeekCommentsYes0 (1 standard drink = 0.6 oz pure alcohol)rareSex and Gender InformationValueDate RecordedSex Assigned at BirthNot on fileLegal HraXkpq6006/18/2024 9:01 AM ESTGender IdentityNot on fileSexual OrientationNot on file Last Filed Vital Signs Vital SignReadingTime TakenCommentsBlood Zhdklbxd687/7907/12/2024 4:30 PM EST Bkwod262007/12/2024 4:30 PM KTTBwciocyrkca22.6 ??C (97.9 ??F)07/12/2024 3:18 PM ESTRespiratory Jwvk517807/12/2024 3:48 PM ESTOxygen Pxwsklkagj30%07/12/2024 4:30 PM ESTInhaled Oxygen Concentration--Jiwynb011 kg (264 lb)10/31/2024 2:51 PM EDT Umndmf619.9 cm (6')10/31/2024 2:51 PM EDTBody Mass Index35.8010/31/2024 2:51 PM EDT Plan of Treatment Health MaintenanceDue DateLast DoneCommentsCT Srcrqrytjjbt1972Colonoscopy 1972Colorectal Cancer Zqvyngoll1972FIT-DNA (Cologuard)1972FIT 1972HIV Mxplwzxoe1972Lipid Panel1972 7255Kctnfmzdxkccb1972 Yearly Adult Occzffcq1972MMR Vaccines (1 of 1 - Standard series)02/18/1973 Hepatitis C Uakdpnsff67/06/1990CKD: Urine Protein Oqmtnxspp92/06/1991Hepatitis B Vaccines (1 of 3 - 19+ 3-dose series)02/18/1991Pneumococcal Vaccine (1 of 2 - PCV)02/18/1991DTaP/Tdap/Td Vaccines (1 - Tdap)02/18/1994PSA Prostate Cancer Ckdlcxssl89/06/2022Zoster Vaccines (1 of 2)02/18/2022Influenza Vaccine (#1) 5COVID-19 Vaccine (2 - season)5001/14/2021iabetes Bpixydxzp50HIB VaccinesAged OutNo longer eligible based on patient's [...] Versaloop, 2 Suture, 2.5mm - Sna - [id number] Implanted:Qty: 1 on 07/12/2024 by Ramin Howard MD at [facility] ImplantRight: ShoulderJ & J DEPUY [id number] / NA / [id number], Versaloop, 2 Suture, 2.5mm - Sna - [id number] Implanted:Qty: 1 on 07/12/2024 by Ramin Howard MD at [facility] ImplantRight: ShoulderJ & J DEPUY MITEK08//[id number] / NA / [id number], Healix, 5.5 Adv Sp Bioc - Sna - [id number] Implanted:Qty: 1 on 07/12/2024 by Ramin Howard MD at [facility] ImplantRight: ShoulderJ & J DEPUY [id number] / NA / 100MCSAnchor, Healix, 5.5 Adv Sp Bioc - Sna - [id number] Implanted:Qty: 1 on 07/12/2024 by Ramin Howard MD at [facility] ImplantRight: ShoulderJ & J DEPUY [id number] / NA / [id number], [place], Advance, 8 X 23mm - Sna - [id number] Implanted:Qty: 1 on 07/12/2024 by Ramin Howard MD at [facility] ScrewRight: ShoulderJ & J DEPUY [id number] / NA / [id number] Procedures Procedure NamePriorityDate/TimeAssociated DiagnosisCommentsBASIC METABOLIC PANEL Philcrc9907/05/2024 1:52 PM EST Preoperative examination Complete tear of right rotator cuff, unspecified whether traumatic from Last 3 Months or Most Recently Relevant to Health Maintenance Results * (ABNORMAL) Basic Metabolic Panel (07/05/2024 1:52 PM EST)ComponentValueRef RangeTest MethodAnalysis TimePerformed AtPathologist CtjbnqkvxCtfpnzf755(H)74 - 99 mg/dL LAB CHEMISTRY METHOD 07/05/2024 2:35 PM [facility] IYEDqjyxi858901 - 145 mmol/L LAB CHEMISTRY METHOD 07/05/2024 2:35 PM [facility] LABPotassium4.23.5 - 5.3 mmol/L LAB CHEMISTRY METHOD 07/05/2024 2:35 PM [facility] EENUwofxvfu79091 - 107 mmol/L LAB CHEMISTRY METHOD 07/05/2024 2:35 PM [facility] AQOFmnblavqgue6409 - 32 mmol/L LAB CHEMISTRY METHOD 07/05/2024 2:35 PM [facility] LABAnion Eyl0912 - 20 mmol/L LAB CHEMISTRY METHOD 07/05/2024 2:35 PM [facility] LABUrea Wyfnnwwi787 - 23 mg/dL LAB CHEMISTRY METHOD 07/05/2024 2:35 PM [facility] LABCreatinine0.930.50 - 1.30 mg/dL LAB CHEMISTRY METHOD 07/05/2024 2:35 PM [facility] LABeGFR>90>60 mL/min/1.73m*2 LAB CHEMISTRY METHOD 07/05/2024 2:35 PM [facility] LABComment: Calculations of estimated GFR are performed using the 2020 CKD-EPI Study Refit equation without therace variable for the IDMS-Traceable creatinine methods. https://jasn.asnjournals.org/content//ASN.1014032441 Calcium9.58.6 - 10.3 mg/dL LAB CHEMISTRY METHOD 07/05/2024 2:35 PM [facility] LABSpecimen (Source)Anatomical Location / LateralityCollection Method / VolumeCollection TimeReceived TimeBlood Venous blood specimen / UnknownVenipuncture / Hsrfayz6407/05/2024 1:52 PM EST 07/05/2024 2:14 PM EST Narrative Authorizing ProviderResult TypeResult StatusHelena Edwards BLOCK TRIMMER-CNPLAB BLOOD ORDERABLESFinal ResultPerforming OrganizationAddressCity/State/ZIP CodePhone Number [facility] [address] [place] [address] from Last 3 Months or Most Recently Relevant to Health Maintenance Insurance * Guarantor: Jules Lopez TypeRelation to PatientDate of BirthPhoneBilling AddressPersonal/EepoenEter[address] [place], [place] [id number] * Guarantor: Jules Lopez TypeRelation to PatientDate of BirthPhoneBilling AddressPersonal/NmjezcUkdy[address] [place] [address] Care Teams Team MemberRelationshipSpecialtyStart DateEnd Favio Childers MD [address] [place] [address] PCP - GeneralFamily Medicine07/03/24
--- OUTSIDE RECORDS SUMMARY | 2025-04-09 07:41 | XMS_ITS | Clinical Summary ---
Author Organization [facility] Address [address] [place] [address] Care Team Providers Care Craft Center Director Name Role Phone Unavailable Primary Care Provider Unavailabl e Social History Tobacco UseTypesPacks/DayYears UsedDateSmoking Tobacco: Never AssessedUT Safety & EnvironmentAnswerDate RecordedFear of Current or Ex-PartnerNot on file 07/07/2023Emotionally AbusedNot on file07/07/2023hysically AbusedNot on file 07/07/2023Sexually AbusedNot on file07/07/2023hysically or Sexually AbusedNot on file07/07/2023Sex and Gender InformationValueDate RecordedSex Assigned at BirthNot on fileLegal AnmYyel8711/11/2021 9:32 PM EDTGender IdentityNot on file Sexual OrientationNot on file Plan of Treatment Not on file
--- OUTSIDE RECORDS SUMMARY | 2025-04-09 07:41 | XMS_ITS | Encounter Summary ---
Author Organization [facility] Address [address] [place] [address] Care Team Providers Care Psych Arnp Name Role Phone Favio Andujar MD Primary Care Provider [phone] Reason for Referral * Consultation (Routine) - AuthorizedSpecialtyDiagnoses / ProceduresReferred By ContactReferred To ContactGastroenterology Diagnoses RUQ abdominal pain Right lower quadrant pain Right flank pain Hepatomegaly NAFLD (nonalcoholic fatty liver disease) Procedures OK OFFICE/OUTPATIENT NEW HIGH MDM 60 MINUTES Favio Andujar MD [address] [facility] [address] [place] [address] Phone: tel: fax: Becky Iqbal MD [facility] Referrals ONLY fax: Referral IDStatusReasonStart DateExpiration DateVisits RequestedVisits [id number] Specialty Services Required / Reason for Visit * ReasonOnset BzklNtbbvbwwIdpeddk76/12/2025 Encounter Details DateTypeDepartmentCare Team (Latest Contact Info)Vlugnlbqbkd63/12/2025Results Follow-Up [facility] [address] [place] [address] Favio Andujar MD [address] [place] [address] [place] RUQ Social History Tobacco UseTypesPacks/DayYears UsedDateSmoking Tobacco: NeverSmokeless Tobacco: NeverAlcohol UseStandard Drinks/WeekCommentsYes2 (1 standard drink = 0.6 oz pure alcohol)Sex and Gender InformationValueDate RecordedSex Assigned at BirthNot on fileLegal OpuGojj2907/28/2022 6:54 PM EDTGender IdentityNot on fileSexual OrientationNot on filedocumented as of this encounter Miscellaneous Notes * Telephone Encounter - Jailyn Brantley MA - 03/28/2025 1:35 PM EST Pt opted to go with seeing gastro. * Addendum Note - Jailyn Brantley MA - 03/28/2025 1:35 PM ESTAddended by: JAILYN BRANTLEY on: 03/28/2025 01:35 PM Modules accepted: Orders * Telephone Encounter - Favio Andujar MD - 03/27/2025 12:59 PM EST Notify patient that the ultrasound demonstrated that the liver was enlarged and that he has fatty liver disease. The gallbladder itself appears normal. We can proceed in 1 of several directions. He could be referred to Gastroenterology. We could do a HIDA scan to look at gallbladder function. I would suggest proceeding with CT scan abdomen and pelvis with both oral and IV contrast. documented in this encounter Plan of Treatment DateTypeDepartmentCare Team (Latest Contact Info)Rsjlqenjsjp09/04/2026 3:00 PM ESTOffice Visit [facility] [address] [place] [address] Domitila Napier MD [address] [place] [address] NameTypePriorityAssociated DiagnosesOrder ScheduleAmbulatory referral to GastroenterologyOutpatient ReferralRoutine RUQ abdominal pain Right lower quadrant pain Right flank pain Hepatomegaly NAFLD (nonalcoholic fatty liver disease) Expected: 03/28/2025 (Approximate), Expires: 09/25/2025documented as of this encounter Visit Diagnoses Diagnosis RUQ abdominal pain- Primary Abdominal pain, right upper quadrant Right lower quadrant pain Right flank pain Abdominal pain, unspecified site Hepatomegaly NAFLD (nonalcoholic fatty liver disease) documented in this encounter Care Teams Team MemberRelationshipSpecialtyStart DateEnd Date Favio Andujar MD [address] [place] [address] PCP - GeneralFamily Ueaxqegx02/3/25documented as of this encounter
--- OUTSIDE RECORDS SUMMARY | 2025-04-09 07:41 | XMS_ITS | Encounter Summary ---
Author Organization [facility] Address [address] [place] [address] Care Team Providers Care Pot Liner Name Role Phone Favio Andujar MD Primary Care Provider + [phone] Encounter Details DateTypeDepartmentCare Team (Latest Contact Info)Dnepejjuwsc08/11/2025Travel Social History Tobacco UseTypesPacks/DayYears UsedDateSmoking Tobacco: NeverSmokeless Tobacco: NeverAlcohol UseStandard Drinks/WeekCommentsYes2 (1 standard drink = 0.6 oz pure alcohol)Sex and Gender InformationValueDate RecordedSex Assigned at BirthNot on fileLegal OblBwqx4807/28/2022 6:54 PM EDTGender IdentityNot on fileSexual OrientationNot on filedocumented as of this encounter Plan of Treatment DateTypeDepartmentCare Team (Latest Contact Info)Ouonqsmzijn16/04/2026 3:00 PM ESTOffice Visit [facility] [address] [facility] [address] [place] [address] Domitila Napier MD [address] [facility] [address] [place] [address] documented as of this encounter Visit Diagnoses Not on filedocumented in this encounter Care Teams Team MemberRelationshipSpecialtyStart DateEnd Date Favio Andujar MD [address] [place] [address] [place] [address] PCP - GeneralFamily Lxxdaptg40/3/25documented as of this encounter
--- OUTSIDE RECORDS SUMMARY | 2025-04-09 07:41 | XMS_ITS | Encounter Summary ---
Author Organization [facility] Address [address] [place] [address] Care Team Providers Care Truck Driver Name Role Phone Favio Andujar MD Primary Care Provider + [phone] Reason for Referral * Imaging (Routine) - AuthorizedSpecialtyDiagnoses / ProceduresReferred By ContactReferred To ContactRadiology Diagnoses RUQ abdominal pain Right lower quadrant pain Right flank pain Hepatomegaly Irritable bowel syndrome with diarrhea Fatty liver Procedures CT abdomen pelvis w IV contrast Favio Andujar MD [address] [facility] 100 [place] [address] Phone: tel: fax: [facility] [address] [place] [address] Phone: tel: fax: Referral IDStatusReasonStart DateExpiration DateVisits RequestedVisits [id number]/19/20255/ Reason for Visit * ReasonOnset DateCommentsCare Lauzpjrsuufa37/19/2025 Encounter Details DateTypeDepartmentCare Team (Latest Contact Info)Hrqfqgweppn31/19/2025Telephone [facility] [address] [facility] [address] [place] [address] Melissa Lopez RN Care Coordination Social History Tobacco UseTypesPacks/DayYears UsedDateSmoking Tobacco: NeverSmokeless Tobacco: NeverAlcohol UseStandard Drinks/WeekCommentsYes2 (1 standard drink = 0.6 oz pure alcohol)Sex and Gender InformationValueDate RecordedSex Assigned at BirthNot on fileLegal SduNfcf3707/28/2022 6:54 PM EDTGender IdentityNot on fileSexual OrientationNot on filedocumented as of this encounter Miscellaneous Notes * Addendum Note - Jailyn Brantley MA - 04/03/2025 8:47 AM ESTAddended by: JAILYN BRANTLEY on: 04/03/2025 08:47 AM Modules accepted: Orders * Telephone Encounter - Jailyn Brantley MA - 04/03/2025 8:[address] Ordered. instructed. * Telephone Encounter - Melissa Lopez RN - 04/03/2025 8:22 AM EST Sagar can not get into GI until mid May. He would like to move forward with the tests Dr. Andujar recommended while he waits. documented in this encounter Plan of Treatment DateTypeDepartmentCare Team (Latest Contact Info)Ixtviyqjoru75/04/2026 3:00 PM ESTOffice Visit [facility] [address] [place] [address] Domitila Napier MD [address] [place] [address] NameTypePriorityAssociated DiagnosesOrder ScheduleCT abdomen pelvis w IV contrastImagingRoutine RUQ abdominal pain Right lower quadrant pain Right flank pain Hepatomegaly Irritable bowel syndrome with diarrhea Fatty liver Expected: 04/03/2025, Expires: 6Creatinine, SerumLabRoutine RUQ abdominal pain Right lower quadrant pain Right flank pain Hepatomegaly Irritable bowel syndrome with diarrhea Fatty liver Expected: 04/03/2025 (Approximate), Expires: 04/03/2026documented as of this encounter Visit Diagnoses Diagnosis RUQ abdominal pain Abdominal pain, right upper quadrant Right lower quadrant pain Right flank pain Abdominal pain, unspecified site Hepatomegaly Irritable bowel syndrome with diarrhea Irritable bowel syndrome Fatty liver Other chronic nonalcoholic liver disease documented in this encounter Care Teams Team MemberRelationshipSpecialtyStart DateEnd Date Favio Andujar MD [address] [place] [id number] PCP - GeneralFamily Cngkqock42/3/25documented as of this encounter
--- NOTE | 2025-04-09 07:42 | CT_ITS ---
The [address] [address] Patient Name: JOVANY HOWELL MRN: [id number] date: 1970 Sex: M Assigned Patient Location: CT Current Patient Location: CT Accession/Order Number: [id number] Exam Date: 04/09/2025 09:00 Report Date: 04/09/2025 10:04 At the request of: MOY TERESA Procedure: CT abdomen pelvis w con CT ABDOMEN AND PELVIS WITH CONTRAST COMPARISON: None CLINICAL DATA: Right-sided abdominal pain for the past month. Spiral images were obtained through the abdomen and pelvis following oral and 100 mL of Omnipaque 300. This CT exam was performed using one or more following dose reduction techniques: Automated exposure control, adjustment of the mA and/or kV according to patient size, or use of iterative reconstruction technique. Limited cuts through the lung bases show no contributory findings. There is fatty infiltration of the liver. No calcified gallstones are noted. The spleen is slightly prominent measuring 15 cm in craniocaudal dimension. The pancreas and adrenal glands show no acute findings. There are symmetric renal nephrograms, without hydronephrosis. The abdominal aorta is normal caliber. There are small nonpathologic abdominal lymph nodes. No ascites is seen. The small bowel loops are normal caliber. Mild stool is visualized within the colon, greater on the right. There is subtle levoscoliotic curvature and degenerative changes at the spine. There is also partial ankylosis of the SI joints. Images through the pelvis show no dilated small bowel. No appendiceal inflammation is seen. There is a small amount of distal colonic stool. No significant diverticular disease is noted. There is a tiny umbilical hernia containing fat. The prostate is normal size and contains calcification. No urinary bladder abnormalities are noted. There is no pelvic ascites. There is a mildly patulous left inguinal ring containing fat. CT/CT abdomen pelvis w con IMPRESSION: FATTY LIVER. MILD SPLENOMEGALY. NO BOWEL OR URINARY TRACT OBSTRUCTION. NO ACUTE FINDINGS. Impression dictated by: Sofia Santana M.D. 04/09/2025 10:04 AM Dictation Location: [place] [address] Electronically authenticated by: [id number] Y Date: 04/09/2025 10:04
--- OUTSIDE RECORDS SUMMARY | 2025-04-09 07:42 | XMS_ITS | CCD ---
Author Organization [facility] Care Team Providers Care Customs And Border Protection Inspector Name Role Phone MALICK, DR WINTER Attending Unavailable MALICK, DR WINTER Admitting Unavailable MALICK, DR WINTER Primary Care Unavailable MALICK, DR WINTER Consulting Unavailable MALICK, DR WINTER Attending Unavailable MALICK, DR WINTER Admitting Unavailable MALICK, DR WINTER Primary Care Unavailable NON STAFF Primary Care Provider UnavailLILIA Johnson Emergency Provider Robinson De Paz Attending Unavailable Robinson De Paz Admitting Unavailable NON STAFF Primary Care Unavailable Favio Teresa MD Primary Care Provider Favio Teresa MD Primary Care Provider Sara MCCABE, Rhett T Unavailable Unavailable Primary Care Provider UnavailRamin Urbano Referring Unavailable Ramin HOWARD Admitting Unavailable Ramin HOWARD Attending Unavailable FAVIO TERESA Primary Care Unavailable CINDY EDWARDS Referring Unavailable LEE J M Admitting Unavailable Ramin HOWARD Attending Unavailable FAVIO TERESA Primary Care Unavailable Ramin HOWARD Referring Unavailable Favio Teresa MD Primary Care Provider Ramin HOWARD Attending Unavailable Ramin HOWARD Attending Unavailable CLAUDINE MOTTA Attending Unavailable FAVIO TERESA Primary Care Unavailable CLAUDINE MOTTA Attending Unavailable FAVIO TERESA Primary Care Unavailable CLAUDINE MOTTA Attending Unavailable FAVIO TERESA Primary Care Unavailable Favio Teresa MD Primary Care Provider FAVIO TERESA Attending Unavailable FAVIO TERESA Referring Unavailable FAVIO TERESA Attending Unavailable PETITTI, AXEL A Attending Unavailable CHRISTINETONREGINA Attending Unavailable LEE, DUANE Referring Unavailable AMY, SAL Attending Unavailable LEE, DUANE Referring Unavailable BLACKSTON, REGINA Ellis Attending Unavailable LEE, DUANE Referring Unavailable AMY, SAL Attending Unavailable LEE, DUANE Referring Unavailable BLACKSTONREGINA Attending Unavailable LEE, DUANE Referring Unavailable AMY, SAL Attending Unavailable LEE, DUANE Referring Unavailable AMY, SAL Attending Unavailable LEE, DUANE Referring Unavailable AMY, SAL Attending Unavailable LEE, DUANE Referring Unavailable AMY, SAL Attending Unavailable LEE, DUANE Referring Unavailable AMY, SAL Attending Unavailable LEE, DUANE Referring Unavailable BLACKSTON, REGINA Ellis Attending Unavailable LEE, DUANE Referring Unavailable AMY, SAL Attending Unavailable LEE, DUANE Referring Unavailable AMY, SAL Attending Unavailable LEE, DUANE Referring Unavailable AMY, SAL Attending Unavailable LEE, DUANE Referring Unavailable SAMANTA MARTINEZ Attending Unavailable LEE, DUANE Referring Unavailable FAVIO TREESA Attending Unavailable FAVIO TERESA Referring Unavailable Allergies Allergy ClassificationReported Allergen(s)Allergy TypeDate of OnsetReaction(s) Facility (5 sources)Labetalol; Translations: [LABETALOL]Drug Eltxjfh03-76-9735Klt [facility] Repository (20 sources)LabetalolDrug Juowyag14-31-3006Ysnuwnl arrhythmia/arrestNOPR Healthcare Medications Current Medications MedicationDrug Class(es)DatesSig (Normalized)Sig (Original)acetaminophen 325 mg oral tablet (20 sources)Start: 42-74-8130dgyk 1 tablet by mouth every four hours as needed 650 mg, oral, Every 4 hours PRN, pain mild (1-3), first line, Starting on Alyssa 07/12/24 at 1541, Recovery (only), When able to take oral medications., If ordered PRN for pain, nurse is permitted to administer this medication for higher pain scores based on patient preference? YesStart: 74-11-2098wusb 2 tablets by mouth every eight hours in the evening for painacetaminophen (Tylenol) 500 mg tablet Indications: Acute post-operative pain Take 2 tablets (1,000 mg) by mouth every 8 hours if needed for mild pain (1 - 3). 90 tablet 07/12/2024 4:00 PM EST 07/12/2024 Activetake 2 tablets by mouth every six hours as needed for painacetaminophen (Tylenol) 500 MG tablet Take 1,000 mg by mouth every 6 (six) hours if needed for mildpain Activealbuterol 0.83 mg/ml inhalation solution (1 source)beta2-Adrenergic AgonistStart: .5 mg, nebulization, Once as needed, wheezing, Starting on Alyssa 07/12/24 at 1541, For 1 dose, Recovery (only) allopurinol 300 mg oral tablet (3 sources)Xanthine Oxidase InhibitorStart: 10-14-2023 End: 06-71-3549ozmu 1 tablet by mouth once dailyallopurinol (Zyloprim) 300 MG tablet Indications: Hyperuricemia Take 1 tablet (300 mg) by mouth Daily To be filled after 100mg is complete 90 tablet 10/14/2023 01/12/2024 Activeaspirin 325 mg oral tablet (20 sources)Platelet Aggregation Inhibitor, Nonsteroidal Anti-inflammatory Drug Start: 07-12-2024 End: 55-76-8410sdkp 1 tablet by mouth in the morningaspirin 325 MG EC tablet Take 325 mg by mouth in the morning and 325 mg in the evening. 07/12/2024 1 05/18/2024 Discontinued (Med list cleanup)Start: 27-57-1412nldc 1 tablet by mouth twice dailyaspirin 325 mg EC tablet Indications: Acute post-operative pain Take 1 tablet (325 mg) by mouth 2 times a day. For four weeks to prevent blood clots 56 tablet 07/12/2024 4:00 PM EST 07/12/2024 Activecholecalciferol 0.025 mg oral tablet (20 sources)Vitamin Dcholecalciferol (Vitamin D-[address]) 25 MCG (1000 UT) tablet Take 1,000 Units by mouth in the morning. Activetake 1 tablet by mouth once dailycholecalciferol (Vitamin D3) 25 mcg (1000 units) tablet Take 1 tablet (1,000 Units) by mouth once daily. Activedocusate sodium 100 mg oral capsule (20 sources)Start: 43-97-5304oase 1 capsule by mouth in the morningDocusate Sodium (DSS) 100 MG capsule Take 100 mg by mouth in the morning and 100 mg in the evening.07/12/2024 Activegabapentin 300 mg oral capsule (20 sources)Anti-epileptic AgentStart: 07-12-2024 End: 19-40-7310wdhf 1 capsule by mouth at bedtimegabapentin (Neurontin) 300 MG capsule Take 300 mg by mouth at bedtime 07/12/2024 03/18/2025 Discontinued (Med list cleanup)0.5 ml HYDROmorphone hydrochloride 1 mg/ml prefilled syringe (2 sources)Opioid AgonistStart: 50.5 mg, intravenous, Every 5 min PRN, pain severe (7-10), first line, Starting on Alyssa 07/12/24 at 1541, Recovery (only), Max total of 4 mg regardless of dose.Start: 50.25 mg, intravenous, Every 5 min PRN, pain moderate (4-6), first line, Starting on Alyssa 07/12/24 at 1541, Recovery (only), Max total of 4 mg regardless of dose.ibuprofen 800 mg oral tablet (20 sources)Nonsteroidal Anti-inflammatory DrugStart: 73-29-3646jnlh 800 mg by mouth every eight hoursIbuprofen Active 800 MG PO Q8H December 22, 2022 11:28amtake 1 tablet by mouth in the morning, then take 1 tablet by mouth in the evening, then take 1 tablet by mouth at bedtimeibuprofen 200 MG tablet Take 200 mg by mouth in the morning and 200 mg in the evening and 200 mg before bedtime. Activeindomethacin 50 mg oral capsule (20 sources)Nonsteroidal Anti-inflammatory Drugtake 1 capsule by mouth in the morningindomethacin (Indocin) 50 MG capsule Take 50 mg by mouth in the morning and 50 mg in the evening. Take with meals. Activekrill/om-3/dha/epa/phospho/ast (OMEGA-3 KRILL OIL ORAL) (4 sources)take 1 dose by mouth once dailykrill/om-3/dha/epa/phospho/ast (OMEGA- 3 KRILL OIL ORAL) Take 1 Dose by mouth once daily. Activemagnesium lactate 84 mg extended release oral tablet (20 sources) End: 56-31-9106nyzh 1 tablet by mouth in the morningmagnesium lactate CR (Magtab) 84 MG (7MEQ) ER tablet Take 84 mg by mouth in the morning. 03/18/2025 Discontinuedmeloxicam 15 mg oral tablet (20 sources)Nonsteroidal Anti-inflammatory DrugStart: 07-12-2024 End: 29-07-3650jqod 1 tablet by mouth every twenty-four hours as neededmeloxicam (Mobic) 15 MG tablet Take 15 mg by mouth Daily as needed 07/12/2024 03/18/2025 Discontinued (Med list cleanup)1 ml methylPREDNISolone acetate 40 mg/ml injection (10 sources)CorticosteroidStart: 06-18-2024 End: 31-25-9576asifnjLLFSBGKpldtm acetate (DEPO-Medrol) injection 40 mgStart: 06-18-2024 End: 51-39-4918avmmdqSTURCLZnsopb acetate (DEPO-Medrol) injection 40 mgStart: 06-18-2024 End: 83-03-255484 mg, Injection, Once, On Tue06/18/24 at 0900, For 1 doseStart: 06-18-2024 End: 63-43-993368 mg, Injection, Once, On Tue06/18/24 at 0900, For 1 doseStart: 12-20-2023 End: 64-60-9938hfuntkZKDZVDCugboj (Medrol Dospak) 4 MG tablets Indications: Right wrist pain Follow schedule on package instructions 21 tablet 12/20/2023 01/31/2024 Discontinued (Therapy completed)Start: 37-85-7910vhsnqlPXMJWPTodnep (Medrol Dospak) 4 MG tablets Indications: Right wrist pain Follow schedule on package instructions 21 tablet 12/20/2023 Activenabumetone 750 mg oral tablet (19 sources)Nonsteroidal Anti-inflammatory DrugStart: 06-18-2024 End: 50-28-5971qzaf 1 tablet by mouth in the morningnabumetone (Relafen) 750 MG tablet Indications: Chronic right shoulder pain Take 1 tablet (750 mg) by mouth in the morning and 1 tablet (750 mg) before bedtime. 180 tablet 06/18/2024 09/16/2024 ActiveoxyCODONE hydrochloride 5 mg oral tablet (20 sources)Opioid AgonistStart: 07-12-2024 End: 89-70-0468bwdr 1 tablet by mouth every six hours as neededoxyCODONE (Roxicodone) 5 MG immediate release tablet Take 5 mg by mouth every 6 (six) hours if needed 07/12/2024 03/18/2025 Discontinued (Med list cleanup)oxygen (O2) therapy (1 source)Start: 56-72-2033cduc 1 mL by inhalation every hourinhalation, at 2 mL/hr, Continuous - , First dose on Alyssa 07/12/24 at 1600, Recovery (only), Device: Nasal Cannula, Rate in liters per minute: 2 LPM, Keep O2 Sat Above: 92%promethazine 6.25 mg in sodium chloride 0.9% 50 mL IV (1 source)Start: 56.25 mg, intravenous, Administer over 15 Minutes, Once as needed, Nausea/vomiting, second line /dawfor cramping, Starting on Alyssa 07/12/24 at 1541, For 1 dose, Recovery (only)vitamin b12 0.25 mg oral tablet (20 sources)Vitamin R41cwar 1 tablet by mouth in the morningcyanocobalamin (Vitamin B-12) 250 MCG tablet Take 250 mcg by mouth in the morning. Activezinc gluconate 50 mg oral tablet (20 sources)take 1 tablet by mouth in the morningzinc gluconate 50 MG tablet Take 50 mg of elemental zinc by mouth in the morning. Active Completed/Discontinued Medications MedicationDrug Class(es)DatesSig (Normalized)Sig (Original)calcium chloride 0.0014 meq/ml / potassium chloride 0.004 meq/ml / sodium chloride 0.103 meq/ml / sodium lactate 0.028 meq/ml injectable solution (1 source)Start: 07-12-2024 End: 89-69-4425jthm 100 mL intravenously every qgeh790 mL/hr, intravenous, Continuous, Starting on Alyssa 07/12/24 at 1030, For 1 hour, Preprocedure Problems Active Problems Problem ClassificationProblemDateDocumented DateEpisodic/ChronicAbdominal pain (2 sources)Right upper quadrant pain; Translations: [Right upper quadrant pain] 99-00-3181TcrgmtmvPczmki (20 sources)Mild intermittent asthma; Translations: [Mild intermittent asthma, uncomplicated]Onset: 790459-69-9583MczelmkQavohpi and circulatory congenital anomalies (20 sources)Bicuspid aortic valve; Translations: [Congenital insufficiency of aortic valve]Onset: 368518-44-5871PwyoymcZreuejb kidney disease (20 sources)Chronic kidney disease stage 2; Translations: [Chronic kidney disease, stage 2 (mild)]Onset: 531241-47-5652DqhzdpzUeigmqhwe of lipid metabolism (20 sources)Mixed hyperlipidemia; Translations: [Dyslipidemia]Onset: 04-20-2021 93-15-5769NuizsraS Codes: Fall (2 sources)Unspecified fall due to ice and snow, initial encounter; Translations: [Fall from other slipping, tripping, or stumbling]06-20-2024 EpisodicFracture of upper limb (2 sources)Hill-Sachs lesion; Translations: [Other displaced fracture of upper end of right humerus, initial encounter for closed fracture]88-46-3400Duxcfser Heart valve disorders (20 sources)Aortic incompetence, non-rheumatic ; Translations: [Nonrheumatic aortic (valve) insufficiency]Onset: 251636-31-5132NipwvikHsidrrw and fatigue (20 sources)Fatigue; Translations: [Chronic fatigue, unspecified]Onset: 314170-09-9776AetxspfQuxbmyxrvxgbk mental health disorders (1 source)Primary insomnia; Translations: [PRIMARY INSOMNIA]Onset: 05-29-2021 ChronicOsteoarthritis (4 sources)Osteoarthritis of joint of right wrist; Translations: [Primary osteoarthritis, right wrist]39-04-0015EctojcgLhvtf circulatory disease (2 sources)Spider nevus; Translations: [Nevus, non-neoplastic]04-29-1888Jqglcmpj Other connective tissue disease (2 sources)Right rotator cuff syndrome; Translations: [Unspecified rotator cuff tear or rupture of right shoulder, not specified as traumatic]93-57-4367Trtbahwj Other ear and sense organ disorders (2 sources)Impacted cerumen of bilateral ears; Translations: [Impacted cerumen, bilateral]86-65-6737HwjdzwmmThvru gastrointestinal disorders (20 sources)Irritable bowel syndrome with diarrhea; Translations: [Irritable bowel syndrome with diarrhea]Onset: 876000-42-0880LaxsuiwXpqpr gastrointestinal disorders (2 sources)Chronic constipation; Translations: [Other constipation]03-18-2025 EpisodicOther injuries and conditions due to external causes (1 source)Injury of head; Translations: [Unspecified injury of head, initial encounter]93-81-6621KmyhtkbuYakhi injuries and conditions due to external causes (2 sources)Injury of right shoulder; Translations: [Unspecified injury of right shoulder and upper arm, initial encounter]38-64-6240AgrdghitVbhyn nervous system disorders (1 source)Acute postoperative pain; Translations: [Other acute postprocedural pain]57-75-7970WmwjgcxyNygdh non-epithelial cancer of skin (2 sources)History of malignant basal cell neoplasm of skin; Translations: [Personal history of other malignant neoplasm of skin]76-70-1113MmhcgjqdIgujt non-traumatic joint disorders (2 sources)Chronic pain of right upper limb; Translations: [Pain in right shoulder]34-50-5656CfamltnlKlxpb non-traumatic joint disorders (20 sources)Pain in right shoulder; Translations: [Pain in joint, shoulder region]Onset: 897303-18-5969MpjbcqctJlumr nutritional; endocrine; and metabolic disorders (20 sources)Morbid obesity; Translations: [Morbid (severe) obesity due to excess calories]Onset: 485944-48-7062CcmheanGaxwp nutritional; endocrine; and metabolic disorders (20 sources)Obesity caused by energy imbalance; Translations: [Other obesity due to excess calories]Onset: 478665-15-2177UnxmidbSraxq skin disorders (2 sources)Lentiginosis; Translations: [Other melanin hyperpigmentation] 92-54-4615YxsgkfbgFkjjz skin disorders (2 sources)Inflamed seborrheic keratosis; Translations: [Inflamed seborrheic keratosis]47-05-7178UranqkxaOizvx upper respiratory disease (20 sources)Chronic rhinitis; Translations: [Chronic rhinitis]Onset: 11-23-2022 41-61-5050SyqwzblDpxxvgkls heart disease (20 sources)Pulmonary hypertension, unspecified; Translations: [Pulmonary hypertension]Onset: 347301-27-1573DyjuoikVwygtamf codes; unclassified (4 sources)Obstructive sleep apnea (adult) (pediatric); Translations: [OBSTRUCTIVE SLEEP APNEA]Onset: 25-59-2700KdjmdueLxdmnaua codes; unclassified (20 sources)Obstructive sleep apnea syndrome; Translations: [Obstructive sleep apnea (adult) (pediatric)]Onset: 594051-18-4954BnfhwesBdiwnnqw codes; unclassified (1 source)Family history of ischemic heart disease and other diseases of the circulatory system; Translations: [FAM HX ISCHEMIC HRT DZ OTH DZ CIRC]Onset: 34-67-4969CvkwynreTkgwlloj codes; unclassified (13 sources)History of arthroscopic procedure on shoulder; Translations: [Other specified postprocedural states]22-72-0697QuxgcdudObnqivej codes; unclassified (2 sources)Pain; Translations: [Pain]Onset: 28-34-4564HrvidfnyWcqllrgh codes; unclassified (2 sources)Other specified postprocedural states; Translations: [Other specified postprocedural states]Onset: 96-40-0446JikdsabfUozozynfcft; intervertebral disc disorders; other back problems (1 source)Cervicalgia; Translations: [Cervicalgia]Onset: 67-92-4168Tpwgtmjo Unclassified (1 source)Low back pain, unspecified; Translations: [Low back pain, unspecified] Onset: 44-11-4123Pnuwlrvknyii (2 sources)Traumatic tear of right rotator cuff, unspecified tear extent, initial rmdyodich23-36-8669Xucqodtayaks (2 sources)Right shoulder pain, unspecified mmmevsoapl55-88-8396Sduhfabssqak (2 sources)Post-op; Translations: [Post-op]Onset: 07-27-2024 Past or Other Problems Problem ClassificationProblemDateDocumented DateEpisodic/ChronicGout and other crystal arthropathies (20 sources)Acute gout; Translations: [Gout, unspecified]Onset: 10-15-2022 Resolved: 993383-80-9712HvjojluAhmfl valve disorders (20 sources)Cardiac murmur, unspecified; Translations: [Heart murmur]Onset: 07-35-5927VafohcnvDbxjdikuouc (20 sources)Internal hemorrhoids; Translations: [Other hemorrhoids]Onset: 695750-06-9206RttdvuosLilej connective tissue disease (20 sources)H/O: dislocated shoulder; Translations: [Personal history of other diseases of the musculoskeletal system and connective tissue]Onset: 06-20-2024 05-31-0488OdqidqvwVrrjn connective tissue disease (8 sources)Full thickness rotator cuff tear; Translations: [Complete rotator cuff tear or rupture of right shoulder, not specified as traumatic]Onset: 812826-68-9854JnpkihbwIrpvy connective tissue disease (8 sources)Biceps tendinitis; Translations: [Bicipital tendinitis, right shoulder]Onset: 550877-72-7473FocuxngoDasrc connective tissue disease (10 sources)Impingement syndrome of right shoulder region; Translations: [Impingement syndrome of right shoulder]Onset: 885157-14-2561NegdjmyhKfbkk connective tissue disease (7 sources)Partial thickness rotator cuff tear; Translations: [Incomplete rotator cuff tear or rupture of right shoulder, not specified as traumatic] Onset: 561422-90-0746TodwsskkOfyhw connective tissue disease (4 sources)Complete rotator cuff tear or rupture of right shoulder, not specified as traumatic; Translations: [Complete rotator cuff tear or rupture of right shoulder, not specified as traumatic]Onset: 33-32-5295IkylxqexEfyce connective tissue disease (4 sources)Incomplete rotator cuff tear or rupture of right shoulder, not specified as traumatic; Translations: [Incomplete rotator cuff tear or rupture of right shoulder, not specified as traumatic]Onset: 66-34-9381FjieopwyXtaju connective tissue disease (4 sources)Bicipital tendinitis, right shoulder; Translations: [Bicipital tendinitis, right shoulder]Onset: 49-48-4260XmvlegtwCsaxn connective tissue disease (2 sources)Impingement syndrome of right shoulder; Translations: [Impingement syndrome of right shoulder]Onset: 08-95-1238DkaogqxeKmvcr endocrine disorders (20 sources)Hypotestosteronism; Translations: [Endocrine disorder, unspecified] Onset: 936193-95-2195JlulguaaZoiga endocrine disorders (20 sources)Hyperestrogenism; Translations: [Other specified endocrine disorders]Onset: 859953-67-5246MjrzrbcvAffvg non-traumatic joint disorders (2 sources)Pain of right wrist; Translations: [Pain in right wrist]01-03-2024 EpisodicOther non-traumatic joint disorders (7 sources)Pain of right acromioclavicular joint; Translations: [Pain in right shoulder]Onset: 593338-49-5553XwdwnydaTdzim nutritional; endocrine; and metabolic disorders (20 sources)Hyperuricemia; Translations: [Hyperuricemia without signs of inflammatory arthritis and tophaceous disease]Onset: EpisodicOther screening for suspected conditions (not mental disorders or infectious disease) (20 sources)Patient encounter status; Translations: [Encounter for screening for malignant neoplasm of colon]Onset: 12-30-2022 Resolved: 792767-98-0234JtmvpgykVfdre skin disorders (20 sources)Seborrheic keratosis; Translations: [Other seborrheic keratosis] Onset: 518335-16-9006RfntqqcwHigeuzea codes; unclassified (20 sources)Reduced libido; Translations: [Decreased libido]Onset: 06-25-2024 06-28-5164PjcskekzNdvmfly and strains (20 sources)Low back strain; Translations: [Strain of muscle, fascia and tendon of lower back, initial encounter]Onset: 608358-39-8277Qjfpwmjc Results Test NameValueInterpretationReference RangeFacilityUS RUQon 98-55-6783GC RUQ EXAMINATION: US RUQ HISTORY: Right upper quadrant [...] diameter. No overt abnormality of the pancreas. IMPRESSION: Hepatomegaly and hepatic steatosis. ELECTRONICALLY SIGNED BY: Manuel Leos, DONormalNot AvailableComment on above:Order Comment: Attention to GallbladderALL CBC WITH AUTO DIFFon 03-18-2025 BASOPHILS ABSOLUTE AUTO0.0NOMS HealthcareBasophils/100 WBC (Bld)0.6 %0.2 - 2.0 % NOMWashington University Medical CenterEosinophils/100 WBC (Bld)2.4 %0.9 - 7.0 %[facility] Erythrocyte distribution width (RBC) [Ratio]12.2 %11.0 - 15.0 %[facility] Hematocrit (Bld) [Volume fraction]47.4 %42.0 - 54.0 %[facility] SouthHemoglobin (Bld) [Mass/Vol]16.5 g/dL14.0 - 18.0 g/dLCox SouthIMMATURE GRANULOCYTES ABS AUTO0.02N[facility]S [facility] HospitalImmature granulocytes/100 WBC (Bld)0.3 %0.0 - 0.5 % [facility] SouthInterpretation and review of laboratory resultsAbnormalNOMetropolitan Saint Louis Psychiatric CenterLYMPHOCYTES ABSOLUTE AUTO1.5NOMS [facility] HospitalLymphocytes/100 WBC (Bld) 22.6 %20.5 - 60.0 %[facility] CenterH (RBC) [Entitic mass]30.7 pg25.9 - 34.0 pg [facility] CenterHC (RBC) [Mass/Vol]34.8 g/dL29.9 - 35.2 g/dLSaint Joseph Health CenterV (RBC) [Entitic vol]88.1 fL80.0 - 94.0 fLCox SouthMONOCYTES ABSOLUTE AUTO 0.7NOMS HealthcareMonocytes/100 WBC (Bld)9.9 %1.7 - 12.0 %[facility] NEUTROPHILS ABSOLUTE AUTO4.3NOMS [facility] HospitalNeutrophils/100 WBC (Bld)64.2 %43.0 - 75.0 %[facility] SouthPlatelet mean volume (Bld) [Entitic vol]9.2 fLLow9.5 - 13.5 fLCox SouthTB EO #0.2NOMS HealthcareTBH KSV496VNCJ HealthcareTBH RBC5.38 N[facility] HealthcareTBH WBC6.6NOMS HealthcareCLINISYNCNOMS HealthcareNo Panel Informationon 01-15-1824YLQC HealthcareBasic metabolic 2000 panelon 07-05-2024 Anion gap [Moles/Vol]11 mmol/JUuxzzb31-25GvtgtjapbuBrecksville VA / Crille HospitalComment on above:Performed By: #### 29587-2 #### BECKIE Ambrosio ([id number]) [facility] ([facility]) [address] [place], [place] [address]Rahnfbj [Mass/Vol]9.5 mg/dLNormal8.6-10.3UnBrecksville VA / Crille HospitalComment on above:Performed By: #### 02988-7 #### BECKIE Ambrosio ([id number]) [facility] ([facility]) [address] [place] [address]Fsxkhtpj [Moles/Vol]102 mmol/JGtlasz73-556RvzmerloqcBrecksville VA / Crille HospitalComment on above:Performed By: #### 12855-2 #### BECKIE Ambrosio ([id number]) [facility] ([facility]) [address] [place], [place] [address]HO2 [Moles/Vol]27 mmol/WCjlbhi16-99KdtihuxrqjBrecksville VA / Crille HospitalComment on above:Performed By: #### 71704-0 #### BECKIE Ambrosio ([id number]) [facility] ([facility]) [address] [place], [place] [address]Sxdbmgpsbh [Mass/Vol]0.93 mg/dLNormal0.50-1.30UnBrecksville VA / Crille HospitalComment on above:Performed By: #### 28831-7 #### BECKIE Ambrosio ([id number]) [facility] ([facility]) [address] [place], [place] [address]KNJ/1.73 sq M.predicted MDRD (S/P/Bld) [Vol rate/Area] mL/min/{1.73_m2}Normal>60UnBrecksville VA / Crille HospitalComment on above:Result Comment: Calculations of estimated GFR are performed using the 2020 CKD-EPI Study Refit equation without the race variable for the IDMS-Traceable creatinine methods. https://jasn.asnjournals.org/content//ASN.7811108676Avofkdrvb By: #### 59952-9 #### BECKIE Ambrosio ([id number]) [facility] ([facility]) [address] [place] [address]Afqoaat [Mass/Vol]100 mg/uRSfte47-73MgovaxcyqgBrecksville VA / Crille HospitalComment on above:Performed By: #### 41971-1 #### BECKIE Ambrosio ([id number]) [facility] ([facility]) [address] [place] [address]Stsiwqcoe [Moles/Vol]4.2 mmol/LNormal3.5-5.3City HospitalComment on above:Performed By: #### 58265-4 #### BECKIE Ambrosio ([id number]) [facility] ([facility]) [address] [place] [address]Oejzcq [Moles/Vol]136 mmol/ORbrffx064-792WomxfmukthBrecksville VA / Crille HospitalComment on above:Performed By: #### 56473-7 #### BECKIE Ambrosio ([id number]) [facility] ([facility]) [address] [place] [address]Bdpv nitrogen [Mass/Vol]12 mg/dLNormal6-23UnBrecksville VA / Crille HospitalComment on above:Performed By: #### 05389-5 #### BECKIE Ambrosio ([id number]) [facility] ([facility]) [address] [place], [place] [address]SOD W Auto Differential panel (Bld)on 72-30-2937Ssustthfr (Bld) [#/Vol]0.03 x10*3/uLNormal0.00-0.10[facility] Comment on above:Performed By: #### 31030-7 #### BECKIE Ambrosio ([id number]) [facility] ([facility]) [address] [place] [address]Pzqwyyyxd/100 WBC (Bld)0.5 %Normal0.0-2.0UnBrecksville VA / Crille HospitalComment on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 diameter and appearance. Ascending Aorta is normal in size measuring 3.0cm. PULMONIC VALVE: Normal thickness and mobility. No stenosis. Trivial regurgitation. PERICARDIUM: No evidence of pericardial effusion. IVC: Collapses with inspirations. Mild dilatation measuring 2.4cm. PLEURA: CONCLUSION: 1. Normal ventricular function. 2. Possible bicuspid aortic valve with mild stenosis and mild regurgitation. 3. Normal right-sided pressures. 4. Normal size ascending aorta. Adult Echocardiography Procedure Report Left Ventricle LVEDD (3.7 - 5.6 cm): 4.46 cm LVESD (2.2 - 4.0 cm): 2.94 cm LVIVS thickness (0.6 - 1.2 cm): 1.29 cm LVPW thickness (0.5 - 1.0 cm): 1.30 cm e': 13.50 cm/s E - e': 4.80 LVOT Area (cm2): 4.52 cm2 Peak Velocity (LVOT): 112.00 cm/s LVOT Diameter 2.40 cm Left Ventricular Ejection Fraction: 65 % Left Atrium LA Volume Index (2D A2C): 21.40 ml/m2 Left Atrium Systolic Dimension: 4.10 cm Left Atrium Systolic Area(A2C): 17.80 cm2 Left Atrium Systolic Area(A4C): 18.60 cm2 Left Atrium Systolic Volume(A2C): 53690 mm3 Left Atrium Systolic Volume(A4C): 89789 mm3 Mitral Valve MV E to A Ratio: 1.10 Deceleration Dinwiddie: 2940 mm/s2 Mitral Valve A-Wave Peak Velocity: 56.30 cm/s Mitral Valve E-Wave Peak Velocity: 64.20 cm/s Right Ventricle RV Internal Diastolic Dimension: 3.41 cm Aorta AO Root Diam: 3.10 cm Aortic Valve Peak Velocity (Antegrade Flow): 231.00 cm/s AoV Area (Peak Bridger): 2.04 cm2 Deceleration Dinwiddie: 1490 mm/s2 Pressure Half-Time: 691 ms Aortic Valve Cusp Separation: 2.00 cm Peak Velocity(Antegrade Flow): 259.00 cm/s Peak Gradient(Antegrade Flow): 27 mm[Hg] Tricuspid Valve Pulmonic Valve Peak Velocity: 113.00 cm/s Peak Gradient: 5 mm[Hg] Right Atrium Dictated by: Martin Williamson M.D. on 04/15/2021 at 13:43 Approved by: Martin Williamson M.D. on 04/15/2021 at 14:01[facility] 61-27-2357Szpbiwgxl From: Yaz Garibay To: Kelsey Frost MA; Shalini Akers; Yaz Garibay; Emely Rangel; Sent: 09/25/2019 11:58:56 EDT Show up: 09/25/2019 11:58:00 EDT Subject: CO 2 laser Due Date/Time: 10/05/2019 11:58:00 EDT Reminder/Recall Pt needs sched for C02 laser l/m on 09/25/19 @ 11:58am.LG Spoke to pt, sched for 10/10/19 at [facility] Vital Signs Date TimeVital SignValuePerforming IjlaxlfirBcbkfzir54-62-4581 09:49-0500Body cawqru548.9 Rosi Teresa MD Work Phone: [facility]Tlrvkufkcz97-27-3677 09:49-0500Body mass index (BMI) [Ratio]36.35 kg/i1YgnxixFavio Teresa MD Work Phone: [facility] SouthCoelanymmi35-76-8712 09:49-0500Body inxpda976.56 kgFavio Teresa MD Work Phone: [facility] SouthSlorrfiqgw57-68-4488 14:51-0400Body ognbly008.9 cmAmanda Thate PA-C Work Phone: [phone]06-18-2025 14:51-0400 Body mass index (BMI) [Ratio]35.8 kg/i0Bkfnev Thate PA-C Work Phone: [phone]-[facility]06-18-2025 14:51-0400 Body .75 kgAmanda Thate PA-C Work Phone: [phone]05-09-2025 10:58-0400 Body odnhof654.9 cmAmanda Thate PA-C Work Phone: [phone]05-09-2025 10:58-0400 Body mass index (BMI) [Ratio]35.8 kg/x2Vmqsso Thate PA-C Work Phone: [phone]-[facility]05-09-2025 10:58-0400 Body thuobr333.75 kgAmanda Thate PA-C Work Phone: [phone]03-14-2025 10:52-0400 Body yplfzo435.9 cmAmanda Thate PA-C Work Phone: [facility]03-14-2025 10:52-0400 Body mass index (BMI) [Ratio]35.8 kg/l4Fmygxp Thate PA-C Work Phone: [phone])[address] [place], [place] 8326303-14-2025 10:52-0400 Body pjmmly677.75 kgAmanda Thate PA-C Work Phone: [phone] [place], [place] 8326302-27-2025 16:30-0500 Diastolic blood vobrmxtg26 mm[Hg]COLLEEN Howard MD Work Phone: [phone] [place], [place] 8326302-27-2025 16:30-0500 Heart rate83 /Chris Lee BROWN Work Phone: [phone] [place], [place] 8326302-27-2025 16:30-0500 SaO2% (BldA) [Mass fraction]94 %COLLEEN Howard MD Work Phone: [phone] [place], [place] 8326302-27-2025 16:30-0500 Systolic blood chsxdsxy685 mm[Hg]COLLEEN Howard MD Work Phone: [phone])[address] [place], [place] 8326302-27-2025 15:48-0500 Respiratory rate18 /ChrisCOLLEEN Howard MD Work Phone: [phone])[address] [place], [place] 8326302-27-2025 15:18-0500 Body vofpqwhvfnj18.9 [degF]COLLEEN Howard MD Work Phone: [phone])[address] [place], [place] 8326302-27-2025 10:02-0500 Body .9 cmCOLLEEN Howard MD Work Phone: [phone])[address] [place], [place] 8326302-27-2025 10:02-0500 Body mass index (BMI) [Ratio]35.88 kg/m2COLLEEN Howard MD Work Phone: [phone])[address] [place], [place] 8326302-27-2025 10:02-0500 Body eyftpx616 kgCOLLEEN Howard MD Work Phone: [phone])[address] [place], [place] 8326302-07-2025 12:40-0500 Body rqepro300.9 cmCOLLEEN Howard MD Work Phone: [phone] [place], [place] 8326302-07-2025 12:40-0500 Body mass index (BMI) [Ratio]34.58 kg/m2COLLEEN Howard MD Work Phone: [facility]02-07-2025 12:40-0500 Body mxoven644.67 kgCOLLEEN Howard MD Work Phone: [facility]02-05-2025 10:21-0500 Body bfzipk867.9 cmCOLLEEN Howard MD Work Phone: [facility]02-05-2025 10:21-0500 Body mass index (BMI) [Ratio]34.58 kg/m2COLLEEN Howard MD Work Phone: [facility]02-05-2025 10:21-0500 Body niinrl281.67 kgCOLLEEN Howard MD Work Phone: [facility]02-03-2025 08:31-0500 Body rpigcw049.9 Rosi Teresa MD Work Phone: [phone] [place], [place] 8554102-03-2025 08:31-0500Body mass index (BMI) [Ratio]34.58 kg/j9JbcedzFavio Teresa MD Work Phone: [phone])[address] [place], [place] 8554102-03-2025 08:31-0500Body .67 kgFavio Teresa MD Work Phone: [phone])[address]01-30-2025 08:55-0500Body vvxakq993.9 Rosi Teresa MD Work Phone: [phone])[address] [place], [place] [address]Mnwldnutvl08-84-1607 08:55-0500Body mass index (BMI) [Ratio]34.58 kg/o6MbejiwFavio Teresa MD Work Phone: [phone])[address] [place], [place] [address]Oiptvfhgvr24-44-5301 08:55-0500Body cuyncv283.67 kgFavio Teresa MD Work Phone: [phone])[address] [place], [place] 8554109-17-2024 08:26-0400Body epkkgf550.9 Rosi Teresa MD Work Phone: [phone])[address] [place], [place] 8554109-17-2024 08:26-0400Body mass index (BMI) [Ratio]34.58 kg/q1CukrclFavio Teresa MD Work Phone: [facility] SouthOkvoearkcx37-26-7477 08:26-0400Body aggffn624.67 kgFavio Teresa MD Work Phone: [facility] SouthKjtgjdutjq88-69-1887 09:44-0400Body xneild993.88 [facility]-2023 09:44-0400Body qeezasjmwaq44 [degF][facility]08-09-2023 09:44-0400Body vgwebh083 kg [facility]08-09-2023 09:44-0400Diastolic blood mm[Hg][facility]08-09-2023 09:44-0400Heart rate80 /min [facility]08-09-2023 09:44-0400Respiratory rate20 /min [facility]08-09-2023 09:44-6071HeH3% (BldA) [Mass fraction]97 %[facility]08-09-2023 09:44-0400Systolic blood rkuhafhx171 mm[Hg][facility] Encounters Encounter DateEncounter TypeCare ProviderFacilityStart: 79-57-9576eggatkzymd FAVIO TERESANot AvailableStart: 03-18-2025 End: 78-68-8778Edynjr flowsZach Teresa MD Work Phone: [facility] [place] [facility] MedicineStart: 03-18-2025 End: 00-11-7326Oabiml flowsZach Teresa MD Work Phone: [facility] [place] [address] Family MedicineStart: 03-18-2025 End: 54-03-4384Fuzlmlnhe Result Lisa Teresa MD Work Phone: [facility] External Department UnsolicitedStart: 03-18-2025 End: 62-68-1137Gybzer-up Lisa Teresa MD Work Phone: [facility] [place] [facility] MedicineComment on above:ALL CBC WITH AUTO DIFF, HMHP LIVER PANEL, CCF LIPASEStart: 03-18-2025 End: 21-22-9246Qszkfxd encounter procedureFavio Teresa MD Work Phone: [phone] Hall StreetComment on above:RUQ abdominal pain (Primary Dx); Chronic constipationStart: 03-18-2025 End: 18-70-2108rahydouafxCAYYPP J HEMEYERNot AvailableStart: 10-31-2024 End: 96-97-7793zdswkibqzyZBNJMB [facility]tart: 10-31-2024 End: 31-21-4526Nykdme outpatient visit 15 minutesClaudine Motta PA-C Work Phone: [facility] CenterComment on above:Status post right rotator cuff repair (Primary Dx)Start: 10-31-2024 End: 93-78-5417Jqixbf flowsheetSamanta Martinez PTANOMS CI PTStart: 10-31-2024 End: 81-47-8936Hmzrhg flowsheetSamanta Martinez PTANOMS CI PTStart: 10-31-2024 End: 85-40-3200htkbqlgbloBeysrdd Kelbley PTANOMS CI PTComment on above:Acute pain of right shoulder (Primary Dx); S/P arthroscopy of right shoulderStart: 10-24-2024 End: 34-32-1498Sljghy Salo Reyes PTANOMS CI PTStart: 10-24-2024 End: 45-28-8246Chpahz Katerinesilvanajulio Reyes PTANOMS CI PTStart: 10-24-2024 End: 97-90-6173equywohziyLppfwxx Lawrence PTANOMS CI PTComment on above:Acute pain of right shoulder (Primary Dx); S/P arthroscopy of right shoulderStart: 10-15-2024 End: 58-77-2487Xgiqub Katerinesilvanajulio Amy ATILIONOMS CI PTStart: 10-15-2024 End: 97-53-6556Xejtge mamiNydiajulio Amy ATILIONOMS CI PTStart: 10-15-2024 End: 71-95-9631zvlrvqalcaLdebden Lawrence PTANOMS CI PTComment on above:Acute pain of right shoulder (Primary Dx); S/P arthroscopy of right shoulderStart: 10-10-2024 End: 01-95-9377Thblld Salo Reyes PTANOMS CI PTStart: 10-10-2024 End: 09-62-2316Kkqjwb flowsGermania Reyes PTANOMS CI PTStart: 10-10-2024 End: 16-73-9963hfrkkkbbrmZchukss Lawrence PTANOMS CI PTComment on above:Acute pain of right shoulder (Primary Dx); S/P arthroscopy of right shoulderStart: 10-01-2024 End: 52-30-3614Whdjqr [employer]daianaedelightjuan Qminder PT Work Phone: noms CI PTStart: 10-01-2024 End: 99-53-2832Djxfvy Booster PT Work Phone: noms CI PTStart: 10-01-2024 End: 75-24-7527xqvybvogpnDvgtis T Blackston PT Work Phone: noms CI PTComment on above:Acute pain of right shoulder (Primary Dx); S/P arthroscopy of right shoulderStart: 09-21-2024 End: 94-71-5881Kiacqt follow up visit related to original Ryland Motta PA-C Work Phone: [facility] FacilityComment on above:Status post right rotator cuff repair (Primary Dx)Start: 09-21-2024 End: 74-40-7419jjdhvkiklfWDMEHG K THATMethod[facility] AmbulatoryStart: 09-17-2024 End: 02-14-8212Wsatrz Salo Reyes PTANOMS CI PTStart: 09-17-2024 End: 18-35-8809Dwdeqs Salo Reyes PTANOMS CI PTStart: 09-17-2024 End: 87-68-7050xahoaholbvZduyuuv Lawrence PTANOMS CI PTComment on above:Acute pain of right shoulder (Primary Dx); S/P arthroscopy of right shoulderStart: 09-10-2024 End: 03-73-2569Modbgi Salo Reyes PTANOMS CI PTStart: 09-10-2024 End: 46-77-4899Fgitzo Salo Reyes PTANO CI PTStart: 09-10-2024 End: 87-19-9561jvzctkroqvExrnzuiPamela Reyes PTANO CI PTComment on above:Acute pain of right shoulder (Primary Dx); S/P arthroscopy of right shoulderStart: 09-03-2024 End: 42-28-2622Myxdrp Salo Reyes PTANOMS CI PTStart: 09-03-2024 End: 65-74-3590Xrixfg Salo Reyes PTANO CI PTStart: 09-03-2024 End: 43-57-2997dhehhtgffxToxxzpvPamela DELAROSA CI PTComment on above:Acute pain of right shoulder (Primary Dx); S/P arthroscopy of right shoulderStart: 08-27-2024 End: 91-68-9232Bninmo Salo Reyes PTANO CI PTStart: 08-27-2024 End: 86-83-7371Pauzqf Salo DELAROSA CI PTStart: 08-27-2024 End: 78-44-0941kpeyihpztrUtnqrnyPamela DELAROSA CI PTComment on above:Acute pain of right shoulder (Primary Dx); S/P arthroscopy of right shoulderStart: 08-20-2024 End: 62-32-1082Xibjou Salo DELAROSA CI PTStart: 08-20-2024 End: 57-83-4533Kgktpq Salo DELAROSA CI PTStart: 08-20-2024 End: 86-24-0102dglbknybshLsqsyljPamela DELAROSA CI PTComment on above:Acute pain of right shoulder (Primary Dx); S/P arthroscopy of right shoulderStart: 08-15-2024 End: 64-36-2086Nevxaaurban Au PT Work Phone: noms CI PTStart: 08-15-2024 End: 39-57-8062Edogsqvi Au PT Work Phone: noms CI PTStart: 08-15-2024 End: 97-90-0783vmpmnkuaxcZqgfyvKaity Au PT Work Phone: noms CI PTComment on above:Acute pain of right shoulder (Primary Dx); S/P arthroscopy of right shoulderStart: 08-13-2024 End: 78-73-5790Nltzod Salo Reyes PTANOMS CI PTStart: 08-13-2024 End: 24-13-5478Wswabd mamiheetSal Reyes PTANOMS CI PTStart: 08-13-2024 End: 62-57-5163jdfmuuzjlhNejnipu Lawrence PTANOMS CI PTComment on above:Acute pain of right shoulder (Primary Dx); S/P arthroscopy of right shoulderStart: 08-08-2024 End: 06-17-1687mwyqjkcsozXvttgsKaity Au PT Work Phone: noms CI PTComment on above:Acute pain of right shoulder (Primary Dx); S/P arthroscopy of right shoulderStart: 08-06-2024 End: 1972nvvxxwqhmuURDWACM LAWRENCENot AvailableStart: 08-02-2024 End: 01-90-8539tdsrjagfilSGAHCNKaity AUNot AvailableStart: 07-27-2024 End: 25-31-6511ojwsckjztsFSNEFO K [facility] AmbulatoryStart: 07-27-2024 End: 22-89-5230Yoygav follow up visit related to original Ryland Motta PA-C Work Phone: uh [facility] CenterComment on above:Status post right rotator cuff repair (Primary Dx)Start: 07-17-2024 End: 41-95-5282Hcxgqd outpatient visit 15 minutesEmkate Napier MD Work Phone: noms [facility] DERMComment on above:Seborrheic keratosis (Primary Dx); History of basal cell carcinoma; Capillary angioma; Lentigines; Seborrheic keratosis, inflamedStart: 07-17-2024 End: 65-54-4852vjfodugbpkOKWAB A PETITTINofortunato AvailableStart: 07-17-2024 End: 31-44-7876Ogwgssvi Napier MD Work Phone: noms [facility] DERMStart: 07-17-2024 End: 90-34-5696Mjtifhvi Napier MD Work Phone: noms [facility] DERMStart: 07-12-2024 End: 43-35-5611Yjkcxkjwcp hospital visit by Jordan Howard MD Work Phone: uh [facility] ORComment on above:Acute post-operative pain (Primary Dx); Complete tear of right rotator cuff, unspecified whether traumatic [M75.121]; Incomplete tear of right rotator cuff, unspecified whether traumatic [M75.111]; Biceps tendinitis of right shoulder [M75.21]; Impingement syndrome of right shoulder [M75.41]; Labral tear of shoulder, right, initial encounter [S43.431A]; Arthralgia of right acromioclavicular joint [M25.511]; Traumatic complete tear of right rotator cuff, initial encounter [S46.011A] Start: 79-51-3520koipeqsbkgA [facility] Start: 07-05-2024 End: 75-22-5652Vcxvugnxg Result EncounterGeneric External Data ProviderNOMS External Department UnsolicitedStart: 07-05-2024 End: 17-91-2486Bjoeuyegv Result EncounterGeneric External Data ProviderNOMS External Department UnsolicitedStart: 07-05-2024 End: 30-03-2107dpxsinfznkXQREWE J [facility] Systemtart: 07-05-2024 End: 48-14-5002Tubhdykza for other preprocedural examinationFAVIO Faustin [facility] Hospitaltart: 17-44-3851cenekieieqL M [facility] Hospitaltart: 06-22-2024 End: 83-09-3604Uwoczs outpatient visit 40 Ross Howard MD Work Phone: [facility] FacilityComment on above:Complete tear of right rotator cuff, unspecified whether traumatic (Primary Dx); Incomplete tear of right rotator cuff, unspecified whether traumatic; Biceps tendinitis of right shoulder; Impingement syndrome of right shoulder; Labral tear of shoulder, right, initial encounter; Arthralgia of right acromioclavicular joint; Traumatic complete tear of right rotator cuff, initial encounterStart: 06-22-2024 End: 95-23-1305mgijpputryYEvans [facility] Hospital AmbulatoryStart: 06-20-2024 End: 64-01-6957tyktmheaurECincinnati VA Medical Center Start: 06-20-2024 End: 92-23-5334Azsrodqcqb hospital visit by physicianCmc Nridhc [facility] CenterComment on above:Traumatic tear of right rotator cuff, unspecified tear extent, initial encounterStart: 06-20-2024 End: 57-22-1104Lfrska outpatient new [address] [place], [place] [address]Ramin Howard MD Work Phone: [facility] HospitalComment on above:Complete tear of right rotator cuff, unspecified whether traumatic (Primary Dx); Right shoulder pain, unspecified chronicity; Traumatic tear of right rotator cuff, unspecified tear extent, initial encounter; Biceps tendinitis of right shoulder; Impingement syndrome of right shoulder; Labral tear of shoulder, right, initial encounterStart: 06-20-2024 End: 57-94-3051Ystsoncibr hospital visit by physicianGea X-Ray [address] [place], [place] [address]Comment on above:Right shoulder pain, unspecified chronicityStart: 06-20-2024 End: 93-61-5913xyffqewukwRSelect Medical [facility] Start: 06-18-2024 End: 60-45-2531Cpeqkmurban Teresa MD Work Phone: [facility] CI FM 100Start: 06-18-2024 End: 60-90-3894Otwyycvi Teresa MD Work Phone: noms CI FM 100Start: 06-18-2024 End: 88-67-9136idrtmmbpzpJWEMIG J HEMEYERNot AvailableStart: 06-18-2024 End: 52-78-9072Moimyqw encounter procedureFavio Teresa MD Work Phone: [facility] CI FM 100Comment on above:Chronic right shoulder pain (Primary Dx); Arthritis of right acromioclavicular joint; Rotator cuff syndrome of right shoulder; Hill-Sachs lesion of right shoulderStart: 06-14-2024 End: 60-78-7775Verpvu Karen Teresa MD Work Phone: [facility] CI FM 100Start: 06-14-2024 End: 53-92-7064Jhuldc Karen Teresa MD Work Phone: [facility] CI FM 100Start: 06-14-2024 End: 15-05-4379etvoqrbwrpDQOKBJ J HEMEYERNot AvailableStart: 06-14-2024 End: 93-70-1761Qhbmmbc encounter procedureFavio Teresa MD Work Phone: [facility] CI FM 100Comment on above:Fall due to slipping on ice or snow, initial encounter (Primary Dx); Injury of right shoulder, initial encounter; Acute pain of right shoulder; Non morbid obesity due to excess calories; History of closed dislocation of shoulderStart: 06-14-2024 End: 98-30-8363sdsfypoxihGYXVTT J HEMEYERNot AvailableStart: 01-31-2024 End: 36-59-6029Uuhbrc Karen Teresa MD Work Phone: [facility] CI FM 100Start: 01-31-2024 End: 10-44-3054Ijjcbc Karen Teresa MD Work Phone: [facility] CI FM 100Start: 01-31-2024 End: 35-23-8935Mlvejlc encounter procedureFavio Teresa MD Work Phone: [facility] CI FM 100Comment on above:Bilateral impacted cerumenStart: 01-03-2024 End: 79-95-0243Kohpax Julienne Ruiz NP Work Phone: noMS CI ORTHOPAEDICSStart: 01-03-2024 End: 31-00-4612Oqvali flowsheetGranfortunato Ellis Sara HEAD PAPER TESTER Work Phone: noMS CI ORTHOPAEDICSStart: 01-03-2024 End: 15-18-9994Ewqnnt outpatient visit 10 minutesGrant Fortunato Sara HEAD PAPER TESTER Work Phone: noms CI ORTHOPAEDICSComment on above:Osteoarthritis of right wrist, unspecified osteoarthritis type (Primary Dx); Right wrist painStart: 12-22-2022 End: 85-43-7404Smmrnxzzh department patient visitJenkins [facility] Center Facility:[facility] Hospitaltart: 12-22-2022 End: 71-16-2015Ratlkmarz department patient visitCl[facility] Work Phone: Start: 05-27-2021 End: 97-18-6691riivuhoqhfUT EDINGRIS HEMEYERFacility:H9Zssop: 04-15-2021 End: 71-08-4111jjmqknzyilRI FAVIO HEMEYERFacility:H1 Procedures DateProcedureProcedure DetailPerforming ClinicianStart: 83-31-2144GLF CBC WITH AUTO DIFFEdingris Teresa MD Work Phone: Start: 04-17-4122ZOITTGDKACU SKIN LESIONEmily Pete Napier MD Work Phone: Start: 07-12-2024 End: 49-92-6444Owvxpybfhiv shoulder rotator cuff repairRamin Howard MD Work Phone: Start: 50-70-1895VH CBC AND DIFFERENTIALGeneric External Data ProviderStart: 68-40-4105Hnv any jt upper extremity w/o contrast matrlRamin Howard MD Work Phone: Start: 49-20-8414FhuscmrttefDezjxs Hemeyer MD Work Phone: Start: 37-88-4624F-ray of lumbar spine, four or more viewsStart: 66-40-7954AM cervical spine without contrastStart: 71-54-2244FP of head without contrastHistory of repair of musculotendinous cuff of shoulder Status post right rotator cuff repairClaudine Motta PA-C Work Phone: History of repair of musculotendinous cuff of shoulder Status post right rotator cuff repairClaudine Lion Thate PA-C Work Phone: History of repair of musculotendinous cuff of shoulder Status post right rotator cuff repairClaudine Lion Thate PA-C Work Phone: Plan of Treatment DateCare ActivityDetailAuthorStart: 76-19-9578Ztonprmld for malignant neoplasm of colonNOMS HealthcareStart: 42-47-5258Skxtwmtyi vaccinationInfluenza Vaccine (#1)[facility]OM[facility] HealthcareComment on above:Postponed from 01/14/2025 (Patient Refused) Start: 07-17-2025 End: 87-89-5599Pnsuhkn encounter procedureNOMS SWS DERMStart: 03-18-2025 End: 39-42-3819XMC W Auto Differential panel - BloodCBC and differential Lab STAT RUQ abdominal pain Expected: 03/18/2025 (Approximate), Expires: 03/18/2026 [facility] Work Phone: Comment on above:Expected: 03/18/2025 (Approximate), Expires: 03/18/2026Start: 03-18-2025 End: 48-83-0659Epbasxf function 2000 panel - Serum or PlasmaHepatic function panel Lab STAT RUQ abdominal pain Expected: 03/18/2025 (Approximate), Expires: 03/18/2026NOMS HealthcareComment on above:Expected: 03/18/2025 (Approximate), Expires: 03/18/2026Start: 03-18-2025 End: 71-92-4427Efslhh [Enzymatic activity/volume] in Serum or PlasmaLipase Lab STAT RUQ abdominal pain Expected: 03/18/2025 (Approximate), Expires: 03/18/2026 N[facility] HealthcareComment on above:Expected: 03/18/2025 (Approximate), Expires: 03/18/2026Start: 03-18-2025 End: 31-11-7190Zuqsdua encounter hsyhaumrk82/03/2025 9:30 AM EST Office Visit [facility] [place] [facility] [address] [place] [address] Favio Teresa MD [address] [place] [address] (Fax) ArrivedNOMS [place] [facility] Family MedicineComment on above:ArrivedStart: 83-43-7623Hiklrriae vaccinationInfluenza Vaccine (Season Ended)[facility] HealthcareStart: 12-10-2024 End: 92-08-2448vjjjgbbfvqYNXW CI PTStart: 12-03-2024 End: 52-19-6940eoyhfkkgsj94/21/2025 7:00 AM EDT Treatment [facility] [address] [place] [address] Sal Reyes PTANOMS CI PTStart: 11-26-2024 End: 76-13-4883knthrradnf78/14/2025 7:00 AM EDT Treatment [facility] [address] [place] [address] Sal Reyes PTANOMS CI PTStart: 11-19-2024 End: 75-39-5800lodtmxjpqs98/07/2025 7:00 AM EDT Treatment [facility] [address] [facility] [address] [place] [address] Sal Reyes PTANOMS CI PTStart: 11-12-2024 End: 56-15-0693cshwkhhlvd83/30/2025 7:00 AM EDT Treatment [facility] [address] [place] [address] Sal Reyes PTANOMS CI PTStart: 11-05-2024 End: 35-85-7070qxkvcadhirLLNE CI PTStart: 10-31-2024 End: 31-53-5837lxehgsghso08/18/2025 7:30 AM EDT Treatment [facility] [address] [place] [address] Regina Au, PT [address] [facility] [address] [place] [address] [facility] PTStart: 10-29-2024 End: 88-55-1546Ullnbtj encounter ttqlijpsl85/16/2025 11:00 AM EDT Office Visit [facility] [address] [facility] [address] [place] [address] Claudine Motta PA-C [address] [place] [address] [facility]2024 End: 31-33-5449oxphidynum10/11/2025 7:00 AM EDT Treatment [facility] [address] [facility] [address] [place] [address] Sal Reyes PTANOMS CI PTStart: 10-15-2024 End: 27-23-3434xvcvbrddmoUTWC CI PTComment on above:Acute pain of right shoulder (Primary Dx); S/P arthroscopy of right shoulderStart: 10-03-2024 End: 20-88-5180kbceiguoje63/21/2025 7:30 AM EDT Treatment [facility] [address] [facility] [address] [place] [address] Regina Au, PT [address] [facility] [address] [place] [address] [facility] PTStart: 10-01-2024 End: 43-15-1713epprtfkzzq46/19/2025 7:00 AM EDT Treatment [facility] [address] [facility] [address] [place] [address] Regina Au, PT [address] [facility] [address] [place] [address] [facility] PTStart: 09-24-2024 End: 48-78-9019ddbtbswmlm58/12/2025 7:00 AM EDT Treatment [facility] [address] [place] [address] [place] [address] Regina Au, PT [address] [place] [address] [place] [address] [facility] PTStart: 09-21-2024 End: 28-44-2483Btafvle encounter vnluimpai60/09/2025 11:00 AM EDT Office Visit [facility] [address] [place] [address] [facility] [address] [place] [address] Claudine Motta PA-C [address] [place], [place] [address] [facility] End: 94-26-5493jqzpfrmbtp29/05/2025 7:00 AM EDT Treatment [facility] [address] [place] [address] Sal Reyes PTANOMS CI PTStart: 09-10-2024 End: 67-07-6551jddbmhxlsz76/28/2025 7:00 AM EDT Treatment [facility] [address] [place] [address] [place] [address] Sal Reyes PTANOMS CI PTStart: 09-03-2024 End: 76-79-9147drfzmconqe25/21/2025 7:00 AM EDT Treatment [facility] [address] [place] [address] Regina Au, PT [address] [place] [address] [place] [address] [facility] PTStart: 08-30-2024 End: 92-34-3491uclivoavxe63/17/2025 7:00 AM EDT Treatment [facility] [address] [address] [place] [address] Regina Au, PT [address] [place] [address] [place] [address] [facility] PTStart: 08-27-2024 End: 20-44-8870bkgnqmyvax40/14/2025 7:00 AM EDT Treatment [facility] [address] [address] [place] [address] Sal Reyes PTANOMS CI PTStart: 08-23-2024 End: 70-23-1752kstfapjkrk08/10/2025 7:00 AM EDT Treatment [facility] [address] [place] [address] [place] [address] Regina Au, PT [address] [place] [address] [place] [address] [facility] PTStart: 08-20-2024 End: 67-34-2123dhtorczwgs67/07/2025 7:30 AM EDT Treatment [facility] [address] [place] [address] [place] [address] Sal Reyes PTANOMS CI PTStart: 08-15-2024 End: 98-21-2872gstutjmceh42/02/2025 7:00 AM EDT Treatment [facility] [address] [place] [address] Regina Au, PT [address] [place] [address] [place] [address] [facility] CI PTStart: 08-09-2024 End: 68-15-0891swrfetycfn25/27/2025 7:00 AM EDT Treatment [facility] [address] [place] [address] Sal Reyes PTANOMS CI PTStart: 07-27-2024 End: 68-29-7269Zghuozs encounter ekxrwpfxf62/14/2025 10:30 AM EDT Office Visit [facility] [address] [facility] [address] [place] [address] Claudine Motta PA-C [address] [place], [place] [address] [facility] End: 04-72-3168Cvizluc encounter procedureNOMS SWS DERMComment on above:Arrived Start: 07-12-2024 End: 67-33-6726Xmsyzoeuk to same day surgery oikvwx3807/12/2024 1:05 PM EST - 07/12/2024 4:05 PM [place] [address] [place] [address] [place] [address] [place], [place] [address] Repair Arthroscopy Rotator Cuff Shoulder REPAIR ARTHROSCOPY ROTATOR CUFF SHOULDER [32720 (CPT )][facility] ORComment on above:Repair Arthroscopy Rotator Cuff Shoulder REPAIR ARTHROSCOPY ROTATOR CUFF SHOULDER [89250 (CPT )]Start: 07-12-2024 End: 69-78-3969Kjbweyooczq shoulder rotator cuff repairARTHROSCOPY, SHOULDER, WITH ROTATOR CUFF REPAIR Complete tear of right rotator cuff, unspecified whe ther traumatic Incomplete tear of right rotator cuff, unspecified whether traumatic Biceps tendinitis of right shoulder Impingement syndrome of right shoulder Labral tear of shoulder, right, initial encounter Arthralgia of right acromioclavicular joint Traumatic complete tear of right rotator cuff,initial encounter 07/12/2024 1:05 PM ESTVirtual GEA ORStart: 44-70-3948Gwfgddcqom hospital visit by yoggfmwtb50/27/2025 11:35 AM EST Hospital [place] [place] [address] [address], [address] [place] [address] [place], [place] [address] [facility] ORStart: 06-22-2024 End: 21-82-3968Dlasqiu encounter fganrpgza01/07/2025 11:30 AM EST Office Visit [facility] [address] [place] [address] [place] [address] [facility] [place], [place] [address] [facility]: 06-20-2024 End: 34-75-7770GH Shoulder - right WO [facility] Work Phone: Comment on above:Expected: 06/20/2024, Expires: 06/20/2025Start: 06-19-2024 End: 55-20-7884CE Shoulder - right 2 ViewsXR shoulder right 2+ views Imaging Routine Right shoulder pain, unspecified chronicity Expected: 06/19/2024, Expires: 06/19/2025[facility] Service Area Work Phone: comment on above:Expected: 06/19/2024, Expires: 06/19/2025Start: 06-14-2024 End: 76-42-0738Evhzgda encounter fvnkyquvt15/30/2025 9:00 AM EST Office Visit [facility] [address] [place] [address] Favio Teresa MD [address] [place] [address] (Fax) ArrivedNOMS CI FM 100Comment on above: ArrivedStart: 01-31-2024 End: 71-88-1600Hdlwkbn encounter /17/2024 9:45 AM EDT Office Visit [facility] [address] [place] [address] Rhett Ruiz, HEAD PAPER TESTER [address] [place] [address] [facility] ORTHOPAEDICSStart: 01-31-2024 End: 69-64-4672Rqwaahf encounter iitskffot21/17/2024 8:30 AM EDT Office Visit [facility] [address] [facility] [address] [place] [address] Favio Teresa MD [address] [facility] [place] [address] (Fax) ArrivedNOMS CI FM 100Comment on above:ArrivedStart: 89-24-6564GWUZC-19 Vaccine ( season)COVID-19 Vaccine ( season)[facility]: 66-89-0351Qjentxfxu vaccination Influenza Vaccine (#1)[facility] HealthcareStart: 01-03-2024 End: 02-80-4157Rjbccfz encounter iftnfsihu21/20/2024 10:45 AM EDT Office Visit [facility] [address] [facility] [address] [place] [address] Rhett Ruiz, HEAD PAPER TESTER [address] [place] [address] ArrivedNOMS CI ORTHOPAEDICSComment on above:Arrived Start: 66-72-8223Meskzx Vaccines (1 of 2)Zoster Vaccines (1 of 2)[facility]: 15-14-7976BPxL/Tdap/Td Vaccines (1 - Tdap) DTaP/Tdap/Td Vaccines (1 - Tdap)[facility]: 91-38-4122Asenmjrls B Vaccines (1 of 3 - 19+ 3-dose series)Hepatitis B Vaccines (1 of 3 - 19+ 3-dose series)[facility]: 02-18-1989 Pneumococcal vaccinationPneumococcal Vaccine (1 of 2 - PCV)[facility]: 75-19-2379Dsbrkbnw mellitus screeningDiabetes Screening [facility]: 49-31-0081Ifpaljezp C screeningHepatitis C ScreeningUnAshtabula General Hospital: 32-47-0429QFP Vaccines (1 of 1 - Standard series)MMR Vaccines (1 of 1 - Standard series)[facility]: 54-41-7509KHD screeningHIV ScreeningChillicothe [facility] Medical Center: 43-05-2558Rsaex panelLipid PanelChillicothe VA Medical Center: 08-89-3789Ryyaqggrg for malignant neoplasm of colonNOMS HealthcareStart: 17-69-9217Yjqbqw Adult PhysicalYearly Adult PhysicalUnMercy Health [facility] End: 12-20-5228Okdaltuswe Pulse oximetry, In Phase 1[facility] Service Area Work Phone: comment on above:Continuous until discontinued starting 07/12/2024Patient EducationMuscle Strain (DC) Head Injury in Adults (DC)[facility] Work Phone: Patient referralTrihealth Mccullough-Hyde [facility] Work Phone: End: 77-85-5920UL Shoulder - right 2 ViewsBlanchard Valley Health System [facility]ton [facility] Work Phone: Comment on above:Once for 1 Occurrences starting 06/20/2024 until 06/20/2024 Payers DatePayer CategoryPayerPolicy [id number] Care HMO (unspecified)[employer] Member Subscriber Plan / Payer (Effective 2025-Present) Name: Jovany Lopez Relation to Subscriber: Self Name: Jovany Lopez Payer ID: [id number] (NAIC) Type: HMO Address: [address] [id number] 91-30-6606Gvkavcq Health [id number] Cross Blue Shield Managed CareLIFEBRITE COMMUNITY HOSPITAL [facility] STOKESEM H[facility] [id number] [facility] 1.2.840.438570.1.13.693.2.7.9.898766.708186.17787-27-5833IhenqedAQMQ [facility] [id number] 2023- [phone] [id number] [place] [address] [id number]41SmadjpeZIQ819N7750277-69-3492 Hfit-ups65-36qpr77-66-1181NenmziqM[id number] 2..1.286577.3.579.2.63849-09-3626Lslqgoe2401592 2..1.594141.3.579.2.68923-98-3806Fgbfvre102019920 2..1.540188.3.579.2.425045-96-2710Ogjckhi88054476 2..1.792194.3.579.2.318029-47-7779Xmwqvyl09503770 2..1.575624.3.579.2.578745-21-6697Rfpfejb23915543 2.16.840.1.964527.3.579.2.386788-24-5269Balvlgq36399756 2.0.1.907387.3.579.2.583905-72-9932Afvakts194103297 2.0.1.339810.3.579.2.481240-97-2344Fgbmmvv278302521 2.0.1.766578.3.579.2.52[id number] 2.0.1.252832.3.579.2.726589-39-6702Udzkqka570573473 2..1.767137.3.579.2.475391-95-2948Oedxoch15508440 2.0.1.926240.3.579.2.583174-29-6075Upwnzis22675172 2.0.1.657513.3.579.2.138232-28-3545Jspwjqs50576229 2..1.712835.3.579.2.965481-14-3043Oumggom58698692 2..1.113284.3.579.2.222430-31-7765Tvfthff52410621 2..1.332418.3.579.2.701440-47-1517Xjwdnsh1796735 2.0.1.819255.3.579.2.938506-03-1243Jpjhumi3221392 2.0.1.178350.3.579.2.192223-95-4664Vkbnter8602244 2.0.1.724497.3.579.2.687163-90-8106Tptnncq0748546 2.0.1.997494.3.579.2.088300-78-0309Tmetjug0742627 2.16.840.1.044847.3.579.2.824109-35-3824Amkczjm4822305 2.16.840.1.060143.3.579.2.467994-25-0812Dmabwnv7294089 2.16.840.1.234973.3.579.2.371363-04-5407Osxxjch0221721 2.16.840.1.699621.3.579.2.864389-22-6469Bnaymjh0453025 2.16840.1.841255.3.579.2.829400-97-6856Qwrucoo4440158 2.0.1.385744.3.579.2.903921-38-6903Gviizpm8404794 2.0.1.645761.3.579.2.928111-94-2859Rpgvtml6731549 2.160.1.748061.3.579.2.282877-76-5127Mjulczc0461466 2.0.1.881324.3.579.2.719091-32-0957Hsawiye6647073 2.0.1.750301.3.579.2.669077-96-3258Qgflmie8001326 2.0.1.061284.3.579.2.971011-44-8874Opxgjzj1909139 2.0.1.043866.3.579.2.081394-07-2157Uvwcvuz3834445 2.0.1.567205.3.579.2.737982-67-5657Xszjena750012801686MwgmhbcIodbikp [facility]/StippsnP[address] 52h1y263-nau4-102b-50v5-[id number] 2.16.840.1.505275.3.579.2.531 Social History DateTypeDetailFacilityStart: 10-06-2022 End: 31-06-6743Gyxytnd smoking status NHISNever smoked tobacco (finding) [facility]: 41-51-4019Xbh Assigned At BirthMale [facility]: 10-06-2022 End: 35-32-4982Uteidsi use and exposureSmokeless tobacco non-userNOMS Healthcare Start: 01-03-2024 End: 65-75-9225Osbtecyrm beverage intakeCurrent drinker of alcohol (finding)[facility] HealthcareStart: 01-03-2024 End: 03-81-2266Daojuqeij beverage intakeNOMS HealthcareStart: 01-03-2024 End: 39-70-0048Kyohkco use panelNOMS HealthcareStart: 63-48-7061Oqt assigned at birthNot on fileNOPR HealthcareTobacco smoking status NHISTobacco smoking consumption unknownBlanchard Valley [facility] Work Phone: Start: 06-10-2024 End: 50-58-4043Lfbqmlhz to SARS-CoV-2 (event)Not sureBlanchard Valley Health System Bluffton HospitalStart: 93-50-7802Kgyincd CommentrareBlanchard Valley Health System [facility] Work Phone: Start: 75-94-6318PebYhqnGXSL Healthcare Medical Equipment Procedure CodeEquipment CodeEquipment Original TextEquipment IdentifierDates [place], Versaloop, 2 Suture, 2.5mm - Sna - [id number]: 07-12-2024 [place], Versaloop, 2 Suture, 2.5mm - Sna - [id number]: 07-12-2024 [place], Healix, 5.5 Adv Sp Bioc - Sna - [id number]: 07-12-2024 [place], Healix, 5.5 Adv Sp Bioc - Sna - [id number]: 07-12-2024 Screw, [place]helle, Advance, 8 X 23mm - Sna - [id number]: 07-12-2024 Clinical Notes 01-03-2024 to 03-18-2025 Note Date & OcywZkzyMwnratnl97-00-9166 Telephone encounter Note* Telephone Encounter - Favio Teresa MD - 03/18/2025 12:56 PM EST His labs are back and I did review them. They are essentially normal. I discussed this with him andwe mutually agreed to using Ex-Lax prior to the MiraLax protocol tonight. If this is all related tohis bowels I would suspect by tomorrow morning he will feel better. He is going to call us either way in the morning if he is not feeling better then we will go ahead and proceed with a gallbladder ultrasound. [facility]Sogigphljm23-83-0057 Miscellaneous Notes* Telephone Encounter - Favio Teresa MD - 03/18/2025 12:56 PM EST His labs are back and I did review them. They are essentially normal. I discussed this with him andwe mutually agreed to using Ex-Lax prior to the MiraLax protocol tonight. If this is all related tohis bowels I would suspect by tomorrow morning he will feel better. He is going to call us either way in the morning if he is not feeling better then we will go ahead and proceed with a gallbladder ultrasound. documented in this encounterCox SouthMwddehdwoq25-97-7697 History of Present illness Narrative* Favio Teresa MD - 03/18/2025 9:30 AM EST Images from the original note were not included. Patient ID: Jovany Lopez is a 55 y.o. male who presents for: Pt states he has been having back pain on the right side which sometimes radiates to the left and around the front. He states when he had this before and back XR were done and he had to do an enema. He states his bowels are not erratic but also not regular. His convinced him to do a MiraLax prep and he notes he only had a moderate amount of school stool and no liquid diarrhea from that. He did think that that eased his abdominal pain some. He did have travel and was recently at a conference and did not need his normal types of foods and satellite. No signs or symptoms of DVT. Review of Systems Constitutional: Positive for appetite change. Negative for chills and fever. Respiratory: Negative for choking, chest tightness and shortness of breath. Cardiovascular: Negative for chest pain, palpitations and leg swelling. Gastrointestinal: Positive for abdominal pain and nausea. Negative for blood in stool and vomiting. Genitourinary: Positive for flank pain. Negative for difficulty urinating and dysuria. Objective The patient is pleasant and in no acute distress The patient has good eye contact and clear speech There is no evidence of jaundice or icterus. Mucous membranes are moist. He does have some mild right CVA tenderness. On palpation in the area he talks about it appears he has 2 lipomas right next to each other at the lower thoracic right spine. Palpating these does not reproduce his pain. The spinous processes in this region in the upper lumbar are nontender. There is some minimal paraspinal hypertonicity in the lower thoracic and upper lumbar region. His abdomen is soft and nondistended. Bilateral lower quadrants are nontender. Left upper quadrant is nontender without any organomegaly or masses. Epigastric is unremarkable. However when we get into the right upper quadrant under his ribs in the medial aspect with the gallbladder would be there is significant guarding and pain. Moving out more laterally he is not guarding anywhere near as much and has some minimal tenderness. Between the lower rib in the umbilicus house patient only generatesmild tenderness. I was unable to complete Gómez sign due to the guarding. 03/18/2025 9:49 AM 06/18/2024 8:31 AM 06/14/2024 8:55 AM 01/31/2024 8:26 AM Vitals BMI 36.35 kg/m2 34.58 kg/m2 34.58 kg/m2 34.58 kg/m2 BSA (m2) 2.49 m2 2.43 m2 2.43 m2 2.43 m2 Height (in) 6' 6' 6' 6' Weight (lb) 268 255 255 255 Visit Report Report Report Report Report Allergies[1] Medications Ordered Prior to Encounter[2] 1. RUQ abdominal pain (Primary) I discussed with them suspicious these having problems with his gallbladder. We have mutually agreed that he will stay on clear liquids as he has had nothing to eat today. He is going to take his lab sit directly over to [facility] and the labs are tagged for stat. I suspect I will have these back this afternoon. This will help a decision in future management and evaluation decisions. Differential includes some sort of liver disease, duodenitis gastritis pancreatitis and possibly just constipation. - CBC and differential; Future - Hepatic function panel; Future - Lipase; Future - CBC and differential - Hepatic function panel - Lipase 2. Chronic constipation For now we are going to have him take MiraLax twice a day every day whether he thinks he needs it or not. Once we get the bowels working well he we get this abdominal pain under control we can consider decreasing it to daily. No charge visit Please Note: Portions of this chart may have been created using voice recognition software. Occasionally a wrong-word or sound-like substitutions may have occurred due to inherent limitations of the voice recognition software. Please read the chart carefully and recognize, using context, where the substitutions may have occurred. [1] Allergies Allergen Reactions Labetalol Other Reaction(s): heart stopped [2] Current Outpatient Medications on File Prior to Visit Medication Sig Dispense Refill acetaminophen (Tylenol) 500 MG tablet Take 1,000 mg by mouth every 6 (six) hours if needed for mildpain cholecalciferol (Vitamin D-[address]) 25 MCG (1000 UT) tablet Take 1,000 Units by mouth in the morning. cyanocobalamin (Vitamin B-12) 250 MCG tablet Take 250 mcg by mouth in the morning. Docusate Sodium (DSS) 100 MG capsule Take 100 mg by mouth in the morning and 100 mg in the evening.(Patient taking differently: Take 100 mg by mouth 2 (two) times a day as needed) ibuprofen 200 MG tablet Take 200 mg by mouth in the morning and 200 mg in the evening and 200 mg before bedtime. indomethacin (Indocin) 50 MG capsule Take 50 mg by mouth in the morning and 50 mg in the evening. Take with meals. (Patient taking differently: Take 50 mg by mouth 2 (two) times a day as needed for mild pain) zinc gluconate 50 MG tablet Take 50 mg of elemental zinc by mouth in the morning. [DISCONTINUED] aspirin 325 MG EC tablet Take 325 mg by mouth in the morning and 325 mg in the evening. [DISCONTINUED] gabapentin (Neurontin) 300 MG capsule Take 300 mg by mouth at bedtime [DISCONTINUED] magnesium lactate CR (Magtab) 84 MG (7MEQ) ER tablet Take 84 mg by mouth in the morning. [DISCONTINUED] meloxicam (Mobic) 15 MG tablet Take 15 mg by mouth Daily as needed [DISCONTINUED] oxyCODONE (Roxicodone) 5 MG immediate release tablet Take 5 mg by mouth every 6 (six) hours if needed No current facility-administered medications on file prior to visit. documented in this encounterCox SouthQbhqfiknnd16-21-2339 History of Present illness Narrative* Claudine Motta PA-C - 10/31/2024 2:30 PM EDT History of Present Illness No chief complaint on file. 54 y.o. male is 3 1/2 months . They state pain is well controlled and continuing to improve. Patient reports that he takes Advil at night but is not specific for shoulder pain. He states that he continues to see improvement with his shoulder. He states that he had his last physical therapy appointment today. He reports that he was discharged because he was doing so well. He states that his motionand strength continue to get better day by day. He states that he has been lifting on his own. He states that he wants to get back into fishing and golfing. He denies any concerns with the incision. No radicular symptoms that he endorses today. Overall he is quite happy with how things are going. Review of Systems GENERAL: Negative for malaise, significant weight loss, fever, chills MUSCULOSKELETAL: see HPI NEURO: Negative Exam Examination of the right shoulder demonstrates a well-healed portal site incisions. There is no erythema or drainage noted. No signs of infection. There is no tenderness palpation along the incisionsor his sternoclavicular joint or AC joint today. No tenderness palpation over the biceps. Range of motion of the right shoulder is 120 degrees forward flexion abduction, externally rotates to 60 degrees and internally rotates to L3 today. Patient has reasonable strength on exam with no discomfort. SILT. UE is NVI. Assessment Patient is 3-1/2 months status post right shoulder scope with rotator cuff repair and biceps tenodesis. Plan Discussed further management with patient. At this time discussed with patient that he should continue to stretch on his own daily. We also discussed with him that he should continue to gradually increase his strength. I discussed with him that he can slowly increase his activities as he feels tolerable. In regards to his activities like fishing and golfing we discussed with him that he can return back to those activities but should just be careful and slowly progress back into them. He can continue to take any Tylenol or anti-inflammatories as needed for pain. As long as the patient continues satisfactory I will see him back as needed regarding this issue. If he has any questions or concerns he can follow-up with me for a recheck of his right shoulder. documented in this encounterBlanchard Valley [facility] Work Phone: 1(764) 138-617606-18-2025 Instructions* Patient Instructions* Claudine Motta PA-C - 10/31/2024 2:30 PM EDT BMI was above normal measurement. Current weight: 120 kg (264 lb) Weight change since last visit (-) denotes wt loss 0 lbs Weight loss needed to achieve BMI 25: 80.1 Lbs Weight loss needed to achieve BMI 30: 43.3 Lbs Advised to Increase physical activity. documented in this encounterBlanchard Valley Health [facility] Work Phone: 1(216) 797-959705-19-2025 History of Present illness Narrative* Regina Au, PT - 10/01/2024 7:00 AM EDT Images from the original note were not included. Physical Therapy Treatment Visit Patient Name: Jovany Lopez Today's Date: 10/01/2024 Encounter Diagnoses Name Primary? Acute pain of right shoulder Yes S/P arthroscopy of right shoulder Visit number: 03/26 authorized Timed Code Treatment Minutes: 53 minutes Total Treatment Time: 54 minutes Time In: 0706 Time Out: 0800 History: Pt presents to PT PO right shoulder scope, RTC repair, biceps tenodesis. DOS: 07/12/24. MARNI: Slipped and fell on ice in March 2024. Pt. Presents to PT in sling. Work: computer Precautions: see attached protocol Subjective: Pt reports his shoulder is feeling better with daily tasks. Still not using shoulder with lifting tasks to no lifting for couple more weeks per protocol. Shoulder still feels tight and does not have full shoulder ROM yet. Pain: 2-4/10 Objective: PT Evaluation (08/02/24) Right shoulder AROM: not tested Right shoulder PROM: 90 degrees flexion, ER 15 degrees Palpation: incision healing well, tightness in right shoulder (deltoid) Strength: 2+/5 in all planes, able to fire shoulder muscles grossly Treatment: Manual Therapy: (15 minutes) PROM in shoulder flexion, Passive ROM, Joint mobilization, Soft TissueMobilization, Myofascial Release, Muscle Energy Technique, Neural Mobilization, Myofascial Cupping,Dry Needling, IASTM, and Scar mobilization Therapeutic Exercise: (30 minutes) Strength, Endurance, Flexibility, ROM, HEP, Neural Mobilization,Power, and Core Stability. 24 minutes unsupervised. Therapeutic Activity: (8 minutes)Exercises to improve dynamic activities, functional tasks, functional mobility to return to prior activity level Neuromuscular re-education: Balance Training, Muscle Facilitation, Dynamic Stability, Core Stabilization, and Blood Flow Restriction Training (BFRT) Modalities: Heat, Ice, Electrical Stimulation, Ultrasound, Cervical Mechanical Traction, Lumbar Mechanical Traction, Iontophoresis, and Fluidotherapy. CP in supine to right shoulder (declined). Assessment: Pt. Has participated in 11 PT session with start of POC on 08/02. Pt is 10 weeks P.O. Pt had no increased pain with progression of exercises. Pt. Will benefit from skilled PT services. PT treatment to follow attached shoulder protocol. Pt. Demonstrates 150 degrees of shoulder flexion and abduction with AROM and PROM is 160-165 degrees. IR and latissmuis dorsi tightness. No strengthening until next Tuesday. Recommend patient to continue to PT to help improve his shoulder ROM and next week start strengthening shoulder to help him return to PLOF. Outcome Measure: Short Term Goal: To be met in 2 weeks Goal 1: Pt to be instructed in home exercise program. Mcfp Goals: To be met in 10 weeks Goal 1: Pt to report independence and compliance with home program. Goal 2: Pt. Will report of 0/10 right shoulder pain while performing daily tasks to help him returnto PLOF. Goal 3: Pt. Will demonstrate 180 degrees of right shoulder flexion and abduction AROM to help him return to PLOF. Goal 4: Pt. Will demonstrate normal right shoulder muscle flexibility to help him achieve full functional right shoulder ROM. Goal 5: Pt. Will demonstrate 5/5 right shoulder strength grossly in all planes to allow him to return to PLOF. Goal 6: Pt. Will score 70 or greater on UEFS to help him return to PLOF. Pt will benefit from skilled PT for 1-3x/week from 08/02/24 to 10/11/24 to address the above impairments. I hereby deem this POC medically necessary. Please sign below. Date: documented in this encounterCox [id number] History of Present illness Narrative* Caludine Motta PA-C - 09/21/2024 11:00 AM EDT History of Present Illness Chief Complaint Patient presents with Right Shoulder - Post-op 54 y.o. male is presents to clinic today 10 week postop appointment from a right shoulder scope with rotator repair and biceps tenodesis. Patient states that he is doing extremely well. He notes his pain is tolerable. He notes every day he feels like his pain gets better. He takes Tylenol occasionally as needed for pain. He notes that physical therapy is going extremely well. He continues to see progress with his range of motion. He states that he has been doing well but more every day with that with no significant discomfort. Overall he is very happy with how things are going. He has no concerns with his incisions. Review of Systems GENERAL: Negative for malaise, significant weight loss, fever, chills MUSCULOSKELETAL: see HPI NEURO: Negative Exam Examination of the right shoulder demonstrates well-healed incisions. There is no tenderness palpation over the AC joint or the biceps groove today. Range of motion of the right shoulder is 120 degrees of forward flexion abduction, 40 degrees of external rotation and internally rotates to L5 with no pain today. Negative Col[place] and Neer's test today. Sensation the rest examination of the right upper extremities gross intact. Assessment Patient is 10 week postop appointment from a right shoulder scope with rotator repair and biceps tenodesis. Plan Discussed with the patient that he should continue with physical therapy to work on his range of motion. Patient was given exercises that he can do in addition to physical therapy at home. He can continue to increase activities as tolerable. Continue to take anti-inflammatories or Tylenol as neededfor pain. We also discussed with patient that in 2 weeks if he can begin gradual strengthening. I will see the patient back in 6 weeks for recheck of the right shoulder. If he continues to satisfactory at that time he discharged him regarding this issue. [facility]Bl[facility] Work Phone: [phone] 836-294905-09-2025 Instructions* Patient Instructions* Claudine Motta PA-C - 09/21/2024 11:00 AM EDT BMI was above normal measurement. Current weight: 120 kg (264 lb) Weight change since last visit (-) denotes wt loss 0 lbs Weight loss needed to achieve BMI 25: 80.1 Lbs Weight loss needed to achieve BMI 30: 43.3 Lbs Advised to Increase physical activity. documented in this encounterBl[facility] Work Phone: 1(191) 471-552004-02-2025 History of Present illness Narrative* Regina Au, PT - 08/15/2024 7:00 AM EDT Images from the original note were not included. Physical Therapy Treatment Visit Patient Name: Jovany Lopez Today's Date: 08/15/2024 Encounter Diagnoses Name Primary? Acute pain of right shoulder Yes S/P arthroscopy of right shoulder Visit number: 09/17 Timed Code Treatment Minutes: 45 minutes Total Treatment Time: 55 minutes Time In: 0700 Time Out: 0755 History: Pt presents to PT PO right shoulder scope, RTC repair, biceps tenodesis. DOS: 07/12/24. MARNI: Slipped and fell on ice in March 2024. Pt. Presents to PT in sling. Work: computer Precautions: see attached protocol Subjective: Pt reports less soreness in his shoulder throughout the day. Shoulder feels better and less stiff affect doing lina Pain: 2-4/10 Objective: PT Evaluation (08/02/24) Right shoulder AROM: not tested Right shoulder PROM: 90 degrees flexion, ER 15 degrees Palpation: incision healing well, tightness in right shoulder (deltoid) Strength: 2+/5 in all planes, able to fire shoulder muscles grossly Treatment: Manual Therapy: (13 minutes) PROM in shoulder flexion, Passive ROM, Joint mobilization, Soft TissueMobilization, Myofascial Release, Muscle Energy Technique, Neural Mobilization, Myofascial Cupping,Dry Needling, IASTM, and Scar mobilization Therapeutic Exercise: (32 minutes) Strength, Endurance, Flexibility, ROM, HEP, Neural Mobilization,Power, and Core Stability Therapeutic Activity: Exercises to improve dynamic activities, functional tasks, functional mobility to return to prior activity level Neuromuscular re-education: Balance Training, Muscle Facilitation, Dynamic Stability, Core Stabilization, and Blood Flow Restriction Training (BFRT) Modalities: Heat, Ice, Electrical Stimulation, Ultrasound, Cervical Mechanical Traction, Lumbar Mechanical Traction, Iontophoresis, and Fluidotherapy. CP in supine to right shoulder x10 minutes. Assessment: Pt. Has participated in 5 PT session with start of POC on 08/02. Pt is 4+ weeks P.O. progressed exercises this date per protocol. Pt had no increased pain and noted some relief with stretching. Introduced standing wand ABD and supine wand flex per protocol, pt had no increased pain. Pt. Will benefit from skilled PT services. PT treatment to follow attached shoulder protocol. Re-educated pt on wearing sling still, pt verbalized understanding. Pt. Demonstrates 140 degrees of passive shoulder flexion and 130 degrees passive abduction, ER 50 PROM. Pt. Is progressing well and recommend to continuePT treatment to help him return to PLOF. Outcome Measure: Short Term Goal: To be met in 2 weeks Goal 1: Pt to be instructed in home exercise program. Mcfp Goals: To be met in 10 weeks Goal 1: Pt to report independence and compliance with home program. Goal 2: Pt. Will report of 0/10 right shoulder pain while performing daily tasks to help him returnto PLOF. Goal 3: Pt. Will demonstrate 180 degrees of right shoulder flexion and abduction AROM to help him return to PLOF. Goal 4: Pt. Will demonstrate normal right shoulder muscle flexibility to help him achieve full functional right shoulder ROM. Goal 5: Pt. Will demonstrate 5/5 right shoulder strength grossly in all planes to allow him to return to PLOF. Goal 6: Pt. Will score 70 or greater on UEFS to help him return to PLOF. Pt will benefit from skilled PT for 1-3x/week from 08/02/24 to 10/11/24 to address the above impairments. I hereby deem this POC medically necessary. Please sign below. Date: documented in this encounterCox [id number] History of Present illness Narrative* Regina Au, PT - 08/08/2024 7:30 AM EDT Images from the original note were not included. Physical Therapy Treatment Visit Patient Name: Jovany Lopez Today's Date: 08/08/2024 Encounter Diagnoses Name Primary? Acute pain of right shoulder Yes S/P arthroscopy of right shoulder Visit number: 3 Timed Code Treatment Minutes: 45 minutes Total Treatment Time: 60 minutes Time In: 0720 Time Out: 0815 History: Pt presents to PT PO right shoulder scope, RTC repair, biceps tenodesis. DOS: 07/12/24. MARNI: Slipped and fell on ice in March 2024. Pt. Presents to PT in sling. Work: computer Precautions: see attached protocol Subjective: Pt reports less soreness in his shoulder throughout the day. Feel better this week. Pain: 2-4/10 Objective: PT Evaluation (08/02/24) Right shoulder AROM: not tested Right shoulder PROM: 90 degrees flexion, ER 15 degrees Palpation: incision healing well, tightness in right shoulder (deltoid) Strength: 2+/5 in all planes, able to fire shoulder muscles grossly Treatment: Manual Therapy: (16 minutes) PROM in shoulder flexion to 90 degrees. Passive ROM, Joint mobilization, Soft Tissue Mobilization, Myofascial Release, Muscle Energy Technique, Neural Mobilization, Myofascial Cupping, Dry Needling, IASTM, and Scar mobilization Therapeutic Exercise: (29 minutes) Strength, Endurance, Flexibility, ROM, HEP, Neural Mobilization,Power, and Core Stability Therapeutic Activity: Exercises to improve dynamic activities, functional tasks, functional mobility to return to prior activity level Neuromuscular re-education: Balance Training, Muscle Facilitation, Dynamic Stability, Core Stabilization, and Blood Flow Restriction Training (BFRT) Modalities: Heat, Ice, Electrical Stimulation, Ultrasound, Cervical Mechanical Traction, Lumbar Mechanical Traction, Iontophoresis, and Fluidotherapy. CP in supine to right shoulder x10 minutes. Assessment: Pt. Has participated in 3 PT session with start of POC on 08/02. Pt is 3+ weeks P.O. progressed exercises this date per protocol. Pt had no increased pain and noted some relief with stretching. Updated HEP handout pt verbalized understanding. Pt. Will benefit from skilled PT services. PT treatment to follow attached shoulder protocol. Outcome Measure: Short Term Goal: To be met in 2 weeks Goal 1: Pt to be instructed in home exercise program. Mcfp Goals: To be met in 10 weeks Goal 1: Pt to report independence and compliance with home program. Goal 2: Pt. Will report of 0/10 right shoulder pain while performing daily tasks to help him returnto PLOF. Goal 3: Pt. Will demonstrate 180 degrees of right shoulder flexion and abduction AROM to help him return to PLOF. Goal 4: Pt. Will demonstrate normal right shoulder muscle flexibility to help him achieve full functional right shoulder ROM. Goal 5: Pt. Will demonstrate 5/5 right shoulder strength grossly in all planes to allow him to return to PLOF. Goal 6: Pt. Will score 70 or greater on UEFS to help him return to PLOF. Pt will benefit from skilled PT for 1-3x/week from 08/02/24 to 10/11/24 to address the above impairments. I hereby deem this POC medically necessary. Please sign below. Date: documented in this encounterCox [id number] History of Present illness Narrative* Claudine Motta PA-C - 07/27/2024 10:30 AM EDT History of Present Illness Chief Complaint Patient presents with Right Shoulder - Post-op 54 y.o. male is presents to clinic today 2-week postop appointment from a right shoulder scope withrotator repair and biceps tenodesis. Patient states that he is doing extremely well. He notes his pain is tolerable. He is not currently taking anything but Advil at night. He states that he had a little bit of soreness after a day or in sitting and typing all day but notes it continues to get better each day. He denies any radicular symptoms. No concerns with his incisions. No fever chills or drainage that he noticed today. No chest pain or shortness of breath. He continues to wear his sling at all times.. They state pain is well controlled and continuing to improve. State they are continuing to progress well. Review of Systems GENERAL: Negative for malaise, significant weight loss, fever, chills MUSCULOSKELETAL: see HPI NEURO: Negative Exam right shoulder incisions are clean dry intact well-healed. No evidence of infection today. Stitcheswere removed in the office today. Axillary skin patch intact. No tenderness noted today. Mild ecchymosis noted to distal aspect of upper arm. No pain with passive motion of the elbow and wrist today.SILT. UE is NVI. Assessment Patient is 2-week postop appointment from a right shoulder scope with rotator repair and biceps tenodesis. Plan Overall, the patient is doing very well after their surgery and is pleased with their progress. Today we removed the stitches and applied Steri-Strips. It is okay for the patient to shower but avoid soaking the wounds (no pools or bathtubs) for 3-4 more weeks until the wounds are completely healed.The patient can slowly increase their activity levels, but must do so slowly to avoid aggravating the joint. Continue to use sling until 6 weeks postoperative. We gave the patient a prescription for physical therapy to work on range of motion and strengthening of the extremity. No strengthening until 12 weeks postoperative. We will plan on seeing the patient back in 8 more weeks. I told the patient to call with any questions or problems. documented in this encounterBl[facility] Work Phone: [phone] Instructions* Patient Instructions* Claudine Motta PA-C - 07/27/2024 10:30 AM EDT BMI was above normal measurement. Current weight: 120 kg (264 lb) Weight change since last visit (-) denotes wt loss -0.55 lbs Weight loss needed to achieve BMI 25: 80.1 Lbs Weight loss needed to achieve BMI 30: 43.3 Lbs Advised to Increase physical activity. documented in this encounterBl[facility] Work Phone: [phone] History of Present illness Narrative* Axel Napier MD - 07/17/2024 3:05 PM EST Skin Check Location: Patient requests a full body skin examination Dermatologic history: history of Actinic Keratosis, history of Basal Cell Carcinoma Last visit: 1 year ago Established patient Lesions: Location: chest, back, abdomen Duration: months to years Quality: itchy Modifying factors: aggravated by picking Associated symptoms: non-healing, rough Treatments: none All pertinent medical history, medications, and allergies were reviewed. General Exam: alert, oriented to person, place, and time, normal affect, well appearing Unaccompanied Scalp, Examined , exam limited by hair Right leg Examined Head, Face Examined Left leg Examined Neck Examined Right foot Examined Chest Examined Left foot Examined Back Examined Buttocks Examined Abdomen Examined Digits,nails: Examined Right arm Examined Left arm Examined Lymphatics: Not examined Hands Examined 1. Seborrheic keratosis Stuck on verrucous, salam[place]-brown papules and plaques. Patient was counseled regarding these benign growths. Removal is normally not necessary, but they may be removed if they are symptomatic or for cosmetic reasons. 2. History of basal cell carcinoma Right Shoulder - Posterior No evidence of recurrence at BCC scar. The patient was counseled that scars from excisional sites of nonmelanoma skin cancers should be monitored closely for recurrence. The patient was instructed to contact the office for any new, changing, or symptomatic moles. The patient was also instructed to contact the office for any new lesions that develop within or around the previous surgery scar. 3. Capillary angioma Scattered valdovinos-red papule(s). The patient was informed that angiomas are benign growths on the the skin. No treatment is necessary. 4. Lentigines Scattered sal[place]anca macules in sun-exposed areas. The patient was informed that lentigines are benign pigmented lesions that occur on sun-exposed andsun-damaged skin. No treatment is necessary. Recommended regular use of broad spectrum sunscreen SPF 30 or higher 5. Seborrheic keratosis, inflamed (3) Chest - Medial (Center), Left Breast (2) [place] and brown stuck on verrucous scaly papule with surrounding erythema The patient was informed that symptomatic seborrheic keratoses are benign growths that become inflamed, itchy, tender, traumatized, caught on clothing, or bleed. Symptomatic lesions can be treated with cryotherapy or curretage. Thicker lesions treated with cryotherapy may require more than one treatment. The patient was instructed to notify the office if abnormal redness or tenderness develops atthe treatment site. Cryotherapy today, see procedure note. Diagnosis: Inflamed seborrheic keratosis Indication: Inflamed Consent: Verbal consent was obtained and risks were discussed, including, but not limited to risks of scarring, darker or school administrator pigmentary changes, recurrence, incomplete removal and infection. Method: Liquid nitrogen was used to treat the lesion(s) with two 5-10 second freeze-thaw cycles Number of lesions treated: 3 Post-procedure instructions: Instructions were given orally and in writing. The office will be contacted if the lesion fails to resolve despite treatment, or if a side effect develops such as abnormal crusting, scabbing, redness or tenderness Cryotherapy, skin lesion - Chest - Medial (Center), Left Breast (2) Next Visit: 1 year documented in this encounterCox [id number] Surgery Surgical operation note* Op Note - Ramin Howard MD - 07/12/2024 1:30 PM EST REPAIR ARTHROSCOPY ROTATOR CUFF SHOULDER (R) Operative Note Date: 07/12/2024 OR Location: [facility] OR Name: Jovany Lopez, : 1970, Age: 54 y.o., , Sex: male ORTHOPEDIC OPERATIVE REPORT / POST-OP NOTE SURGEON: Silverio Howard MD GAS OPERATIONS ANALYST(S): Heri Dsouza SA PRE-OPERATIVE DIAGNOSIS: Right shoulder full-thickness rotator cuff tear, biceps tendinopathy, acromioclavicular arthrosis, labral tearing, subacromial impingement POST-OPERATIVE DIAGNOSIS: Same PROCEDURE: Right shoulder arthroscopy, arthroscopic rotator cuff repair of the supraspinatus, arthroscopic biceps tenodesis, arthroscopic distal clavicle excision, extensive debridement, subacromial decompression with partial acromioplasty CPT CODE(S): 31795, 26840, 31507, 28521, 15839 ANESTHESIA: general + regional ESTIMATED BLOOD LOSS: Minimal SPECIMEN: None FINDINGS: Above COMPLICATIONS: None CONDITION: Stable to the Recovery Room TASKS PERFORMED BY GUN STOCK CHECKER OR DYE AND CHEMICAL COORDINATOR: holding or positioning the extremity, retracting, helping manage the electrocautery, etc. I, Dr Howard, was present and scrubbed for the entire surgical procedure, including wound closure. INDICATION FOR SURGERY: 54-year-old pleasant male with longstanding right shoulder pain and weakness. the patient's shoulder pain and weakness had been treated conservatively with anti-inflammatories, physical therapy, and steroid injections. The patient failed to have significant relief. X-rays showed a relatively normalshoulder with no significant arthritis of the glenohumeral joint but the patient did have some acromioclavicular joint arthritis on the xrays and MRI showed a rotator cuff tear in the shoulder, as well as proximal biceps tendinopathy, acromioclavicular joint arthrosis, labral tearing and subacromial impingement. On physical examination, the patient had pain and weakness with rotator cuff testing,positive impingement signs, and pain over their proximal biceps tendon. The patient also had tenderness to palpation over the distal clavicle with a positive cross arm test. We discussed continuing conservative treatment but this had not been helping and was tried already. We discussed a shoulder arthroscopy with rotator cuff repair, arthroscopic biceps tenodesis, arthroscopic distal clavicle excision, extensive debridement and subacromial decompression with partial acromioplasty. The patient understood all the risks versus benefits of operative and non-operative treatment options. The risks of shoulder arthroscopy with rotator cuff repair were discussed, which included but were not limitedto: risk of continued pain or re-tear of the rotator cuff, risks of infection, bleeding, nerve, artery, or muscle damage, risk of fracture either intra- operatively or post-operatively, risk of need for additional surgery, risk of anesthesia including risks of heart attack, stroke, or even . The patient wanted to proceed with surgery and signed appropriate surgical consents. On the morning ofsurger, I signed the patient's operative shoulder the preoperative holding area. PROCEDURE: The patient was brought to the operating room after anesthesia performed a block on the patient's operative upper extremity. The patient was placed supine on the operating room table and all of theirbony prominences were padded. A operating room huddle was performed and the patient received IV antibiotics. The patient was placed into a beachchair position with all of their mikhail prominences padded and SCDs were applied to the lower extremities and used throughout the procedure. The patient's right upper extremity was prepped and draped in the normal sterile fashion. A pre-incision timeout was called. A shoulder arthroscopy was then performed, using the standard posterior viewing portal, anterior, anterolateral, and lateral working portals. Throughout the shoulder arthroscopy, no loose bodies were identified. In the glenohumeral joint, the cartilage of the humeral head was relatively well maintained. There was some grade 2 and 3 cartilage wear of the inferior half of the glenoid. The p atient was found to have extensive labral tearing, with anterior and posterior labral tearing, as well as a SLAP tear. The biceps tendon was found to be erythematous and partially torn. The biceps tendon was then tagged with a spinal needle and cut at its insertion on the labrum. Scar tissue was seen throughout the anterior capsule. An extensive debridement was then performed with an arthroscopicshaver, debriding the subacromial bursa as well as the labrum tearing anteriorly and posteriorly. The biceps anchor complex tearing was debrided down to normal healthy labrum. The biceps tendon stumpwas then debrided down to normal healthy labrum. The glenoid cartilage wear was debrided with the arthroscopic shaver. Scarring in the anterior capsule was debrided with the arthroscopic shaver and the anterior interval was opened up with the shaver. The subscapularis tendon was then examined. The subscapularis was intact and did not require repair. The supraspinatus tendon was then examined. A full-thickness tear of the supraspinatus tendon was identified. The torn tissue of the supraspinatus tendon was then debrided back to healthy bleeding tissue. The arthroscope was then put in the subacromial bursa and a subacromial decompression was performed. A prominent hook was found on the anterolateral aspect of the acromion, so a partial acromioplastywas performed using a amaya in the cutting block technique. The biceps tendon was pulled in the subacromial space and freed up down to the bottom of the bicipital groove, where an 8 mm tunnel was drilled. The biceps tendon was pushed into the tunnel and secured with interference screw, completing the arthroscopic biceps tenodesis. Attention was then turned to the torn supraspinatus tendon. The unhealthy supraspinatus tendon tissue was debrided back to healthy, bleeding tendon tissue with an arthroscopic shaver and the footprint of the supraspinatus was debrided down to healthy bleeding bone. A supraspinatus rotator cuff repair was then performed using a double row repair technique with 2 Medial Row all suture anchors that were impacted into the footprint of the supraspinatus and then the suture limbs were brought up through the rotator cuff in a horizontal mattress configuration and tied down. All of the suture limbs were then brought laterally through 2 lateral row anchors for a double row repair using 4 anchors. After this was performed, a probe was used and the rotator cuff repair of the supraspinatus was found to be extremely stable. The shoulder was also put through a full range of motion and the rotator cuff repair was found to be extremely stable. Attention was turned to the distal clavicle and AC joint. Significant arthrosis was seen at the acromioclavicular joint so 1 cm of distal clavicle was removed with a amaya through the anterior portal.After this was performed, the scope was put through the anterior portal, confirming that the bone had been removed superiorly as well as posteriorly and that there was 1 cm of space between the distal clavicle and the acromion. This completed the arthroscopic distal clavicle excision. After the shoulder arthroscopy was completed, including the rotator cuff repair, biceps tenodesis, arthroscopic distal clavicle excision, extensive debridement, and subacromial decompression with partial acromioplasty, a complete shoulder arthroscopy was then again performed and no further pathology was identified. The shoulder was drained of fluid and the arthroscopic portals were closed with 3-0 nylon skin sutures. Adaptic, dry sterile dressing, and a shoulder immobilizer were applied. The patient was awoken and brought to the recovery room in good condition. There were no complications. [facility] Work Phone: [phone] Miscellaneous Notes* Op Note - Ramin Howard MD - 07/12/2024 1:30 PM EST REPAIR ARTHROSCOPY ROTATOR CUFF SHOULDER (R) Operative Note Date: 07/12/2024 OR Location: [facility] OR Name: Jovany Lopez : 1970, Age: 54 y.o., , Sex: male ORTHOPEDIC OPERATIVE REPORT / POST-OP NOTE SURGEON: Silverio Howard MD GAS OPERATIONS ANALYST(S): Heri Dsouza SA PRE-OPERATIVE DIAGNOSIS: Right shoulder full-thickness rotator cuff tear, biceps tendinopathy, acromioclavicular arthrosis, labral tearing, subacromial impingement POST-OPERATIVE DIAGNOSIS: Same PROCEDURE: Right shoulder arthroscopy, arthroscopic rotator cuff repair of the supraspinatus, arthroscopic biceps tenodesis, arthroscopic distal clavicle excision, extensive debridement, subacromial decompression with partial acromioplasty CPT CODE(S): 81508, 14976, 50955, 85316, 23381 ANESTHESIA: general + regional ESTIMATED BLOOD LOSS: Minimal SPECIMEN: None FINDINGS: Above COMPLICATIONS: None CONDITION: Stable to the Recovery Room TASKS PERFORMED BY GUN STOCK CHECKER OR DYE AND CHEMICAL COORDINATOR: holding or positioning the extremity, retracting, helping manage the electrocautery, etc. I, Dr Howard, was present and scrubbed for the entire surgical procedure, including wound closure. INDICATION FOR SURGERY: 54-year-old pleasant male with longstanding right shoulder pain and weakness. the patient's shoulder pain and weakness had been treated conservatively with anti-inflammatories, physical therapy, and steroid injections. The patient failed to have significant relief. X-rays showed a relatively normalshoulder with no significant arthritis of the glenohumeral joint but the patient did have some acromioclavicular joint arthritis on the xrays and MRI showed a rotator cuff tear in the shoulder, as well as proximal biceps tendinopathy, acromioclavicular joint arthrosis, labral tearing and subacromial impingement. On physical examination, the patient had pain and weakness with rotator cuff testing,positive impingement signs, and pain over their proximal biceps tendon. The patient also had tenderness to palpation over the distal clavicle with a positive cross arm test. We discussed continuing conservative treatment but this had not been helping and was tried already. We discussed a shoulder arthroscopy with rotator cuff repair, arthroscopic biceps tenodesis, arthroscopic distal clavicle excision, extensive debridement and subacromial decompression with partial acromioplasty. The patient understood all the risks versus benefits of operative and non-operative treatment options. The risks of shoulder arthroscopy with rotator cuff repair were discussed, which included but were not limitedto: risk of continued pain or re-tear of the rotator cuff, risks of infection, bleeding, nerve, artery, or muscle damage, risk of fracture either intra- operatively or post-operatively, risk of need for additional surgery, risk of anesthesia including risks of heart attack, stroke, or even . The patient wanted to proceed with surgery and signed appropriate surgical consents. On the morning ofsur, I signed the patient's operative shoulder the preoperative holding area. PROCEDURE: The patient was brought to the operating room after anesthesia performed a block on the patient's operative upper extremity. The patient was placed supine on the operating room table and all of theirbony prominences were padded. A operating room huddle was performed and the patient received IV antibiotics. The patient was placed into a beachchair position with all of their mikhail prominences padded and SCDs were applied to the lower extremities and used throughout the procedure. The patient's right upper extremity was prepped and draped in the normal sterile fashion. A pre-incision timeout was called. A shoulder arthroscopy was then performed, using the standard posterior viewing portal, anterior, anterolateral, and lateral working portals. Throughout the shoulder arthroscopy, no loose bodies were identified. In the glenohumeral joint, the cartilage of the humeral head was relatively well maintained. There was some grade 2 and 3 cartilage wear of the inferior half of the glenoid. The p atient was found to have extensive labral tearing, with anterior and posterior labral tearing, as well as a SLAP tear. The biceps tendon was found to be erythematous and partially torn. The biceps tendon was then tagged with a spinal needle and cut at its insertion on the labrum. Scar tissue was seen throughout the anterior capsule. An extensive debridement was then performed with an arthroscopicshaver, debriding the subacromial bursa as well as the labrum tearing anteriorly and posteriorly. The biceps anchor complex tearing was debrided down to normal healthy labrum. The biceps tendon stumpwas then debrided down to normal healthy labrum. The glenoid cartilage wear was debrided with the arthroscopic shaver. Scarring in the anterior capsule was debrided with the arthroscopic shaver and the anterior interval was opened up with the shaver. The subscapularis tendon was then examined. The subscapularis was intact and did not require repair. The supraspinatus tendon was then examined. A full-thickness tear of the supraspinatus tendon was identified. The torn tissue of the supraspinatus tendon was then debrided back to healthy bleeding tissue. The arthroscope was then put in the subacromial bursa and a subacromial decompression was performed. A prominent hook was found on the anterolateral aspect of the acromion, so a partial acromioplastywas performed using a amaya in the cutting block technique. The biceps tendon was pulled in the subacromial space and freed up down to the bottom of the bicipital groove, where an 8 mm tunnel was drilled. The biceps tendon was pushed into the tunnel and secured with interference screw, completing the arthroscopic biceps tenodesis. Attention was then turned to the torn supraspinatus tendon. The unhealthy supraspinatus tendon tissue was debrided back to healthy, bleeding tendon tissue with an arthroscopic shaver and the footprint of the supraspinatus was debrided down to healthy bleeding bone. A supraspinatus rotator cuff repair was then performed using a double row repair technique with 2 Medial Row all suture anchors that were impacted into the footprint of the supraspinatus and then the suture limbs were brought up through the rotator cuff in a horizontal mattress configuration and tied down. All of the suture limbs were then brought laterally through 2 lateral row anchors for a double row repair using 4 anchors. After this was performed, a probe was used and the rotator cuff repair of the supraspinatus was found to be extremely stable. The shoulder was also put through a full range of motion and the rotator cuff repair was found to be extremely stable. Attention was turned to the distal clavicle and AC joint. Significant arthrosis was seen at the acromioclavicular joint so 1 cm of distal clavicle was removed with a amaya through the anterior portal.After this was performed, the scope was put through the anterior portal, confirming that the bone had been removed superiorly as well as posteriorly and that there was 1 cm of space between the distal clavicle and the acromion. This completed the arthroscopic distal clavicle excision. After the shoulder arthroscopy was completed, including the rotator cuff repair, biceps tenodesis, arthroscopic distal clavicle excision, extensive debridement, and subacromial decompression with partial acromioplasty, a complete shoulder arthroscopy was then again performed and no further pathology was identified. The shoulder was drained of fluid and the arthroscopic portals were closed with 3-0 nylon skin sutures. Adaptic, dry sterile dressing, and a shoulder immobilizer were applied. The patient was awoken and brought to the recovery room in good condition. There were no complications. documented in this [facility] Work Phone: [phone] Hospital Discharge instructions* Discharge Instructions* Jovany Miller MD - 07/12/2024 10:27 AM EST Wound Care Your dressing should remain intact and dry until your post op visit in office. No showering until seen in clinic.-sitting in bathtub to sponge bathe is ok. Place a protective cover (large garbage bag) over your shoulder (with sling on) while sponge bathing. Do NOT immerse your operative shoulder inbath or pool water. Biceps Tenodesis You must keep your sling on while bathing to prevent active motion of your elbow. While sponge bathing keep your operative arm at your side, you are not to raise or reach with your arm during the first 6 weeks following surgery. Lifting or raising your arm under your own strength could cause damageto your surgically repaired shoulder. Surgical Dressing If your dressing becomes soiled or damp, you may remove the dressing and replace the bandage. Please do not remove steri-strips (small pieces of tape) covering your incisions, if present. Please be certain to wash hands thoroughly prior to changing dressing, do not place any ointments over incisions. Sling/Immobilizer Anesthesia effects can last up until 48 hours after surgery. Please be aware that you may experience numbness in your arm for up to 48 hours after surgery. During this time it is extremely important that you keep your sling in place at all times because you will not have control of your arm due to the anesthesia effects. Your sling with supporting abduction pillow should be worn at all times. Maintain your elbow position against the pillow and even with your side or in front of this position tominimize stress on the repair. Activity When sleeping or resting, inclined positions (i.e. reclining chair) using a pillow under the forearm for support may provide better comfort Do not engage in activities which increase pain/swelling over the first 7-10 days following surgery Avoid long periods of sitting (without arm supported) or long distance traveling for 2 weeks May return to sedentary work ONLY or school 3-4 days after surgery, if pain is tolerable Continuous icing will help to decrease swelling and provide pain relief. You may use ice packs every 2 hours for 20 minutes daily until your first post- operative visit. It is very important to alwayshave protection between the ice pad and your skin. Never place the ice pad directly on your skin; this could lead to an injury to your skin. Driving Please do not drive until you are evaluated in the office after surgery. 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 Post-operative Medication 1. Aspirin 325mg 1 tablet twice a day for 4 weeks following surgery. Aspirin helps to reduce the risk of blood clots following surgery. 2. Colace 1 tablet twice a day. Colace is used to prevent constipation while taking pain medication. 3. Mobic 15 mg take 1 tablet daily for 5 days, after 5 days take 1 tablet daily only as needed for pain. 4.Tylenol 1gm every 8 hours for 5 days, after 5 days take 1gm every 8 hours only as needed for pain. 5.Gabapentin 300mg daily at bedtime for 5 days, after 5 days you should no longer need this medication. 6. Oxy IR 5mg every 6 hours ONLY TO BE TAKEN FOR SEVERE PAIN. Do NOT take Oxy IR within 3 hours of taking Gabapentin. Do NOT take Gabapentin within 3 hours of taking Oxy IR. If you are having severe pain and taking Oxy IR at night skip the nightly Gabapentin and only resume when you are not taking Oxy IR at night Signs and Symptoms of Complications Although complications are rare, the following are a list of potential symptoms you should be alertfor. Infection - Increased pain not relieved with medication, fever (temperature of 101.5 degrees Fahrenheit or higher), chills, redness, swelling or drainage (yellow/brown/green) from incision. Blood Clot - If you experience shortness of breath, chest pain, pain in your chest with deep breaths or difficulty breathing, please report to emergency room immediately. Persistent Pain - Severe sharp pain not relieved by pain medication. Persistent and increasing swelling and numbness of the arm. If a follow-up visit after surgery was not scheduled, please call Dr. Howard s office at [phone] during office business hours (Tuesday to Tuesday, 8:30am to 3:30pm) to arrange a follow-up appointment for 2 weeks after your surgery. If you have any questions, please call Dr. Howard s office at [phone] during office business hours (Tuesday to Tuesday, 8:30am to 3:30pm). Please do not call Dr. Lee ambrosio office after 3:30pm or onweekends or holidays. If you have an urgent issue after 3:30pm or on weekends or holidays, please go immediately to a local emergency room to be evaluated. documented in this [facility] Work Phone: [phone] Attending History and physical note* Jovany Miller MD - 07/12/2024 10:24 AM EST H&P reviewed. The patient was examined and there are no changes to the H&P. Cosigned by Ramin Howard MD at 07/12/2024 1:19 PM EST Source Note - Cindy Edwards, LILIA-COOK SOUP - 07/05/2024 1:00 PM EST Images from the original note were not included. CPM/PAT Evaluation Name: Jovany Lopez (Jovany Lopez) /Age: 1002/19/1970/54 y.o. Visit Type: In-Person Chief Complaint: Tear right rotator cuff; Biceps tendinitis right shoulder HPI 54 y/o male scheduled for repair arthroscopy rotator cuff shoulder on 07/12/[address] Knoxecondary to Tear right rotator cuff; Biceps tendinitis right shoulder. No significant PMHX. PAT isconsulted today for perioperative risk stratification and optimization. Past Medical History: Diagnosis Date Actinic keratosis Anxiety Arthralgia of right acromioclavicular joint Arthritis Asthma BCC (basal cell carcinoma) right shoulder Biceps tendinitis of right shoulder Complete tear of right rotator cuff Gout IBS (irritable bowel syndrome) Impingement syndrome of right shoulder Incomplete tear of right rotator cuff Labral tear of shoulder, right, sequela Sleep apnea no CPAP Traumatic complete tear of right rotator cuff Wears glasses Past Surgical History: Procedure Laterality Date BACK SURGERY herniated disc repair FOOT SURGERY Left ankle TONSILLECTOMY WRIST SURGERY Right Patient has no history on file for sexual activity. No family history on file. Allergies Allergen Reactions Labetalol Cardiac arrhythmia/arrest Prior to Admission medications Not on File PAT ROS: Constitutional: neg Neuro/Psych: neg Eyes: use of corrective lenses Ears: Nose: Mouth: Throat: Neck: neg Cardio: neg Respiratory: neg Endocrine: GI: neg : neg Musculoskeletal: Decreased ROM in right shoulder Hematologic: neg Skin: Physical Exam Vitals reviewed. Constitutional: Appearance: Normal appearance. HENT: Mouth/Throat: Mouth: Mucous membranes are moist. Pharynx: Oropharynx is clear. Eyes: Pupils: Pupils are equal, round, and reactive to light. Cardiovascular: Rate and Rhythm: Normal rate and regular rhythm. Pulses: Normal pulses. Heart sounds: Normal heart sounds. Pulmonary: Effort: Pulmonary effort is normal. Breath sounds: Normal breath sounds. Abdominal: General: Bowel sounds are normal. Palpations: Abdomen is soft. Musculoskeletal: General: Normal range of motion. Cervical back: Normal range of motion and neck supple. Skin: General: Skin is warm and dry. Neurological: General: No focal deficit present. Mental Status: He is alert and oriented to person, place, and time. Psychiatric: Mood and Affect: Mood normal. Behavior: Behavior normal. Airway Testing/Diagnostic: Patient Specialist/PCP: Visit Vitals BP (!) 133/92 Pulse 84 Temp 36.6 C (97.9 F) Resp 18 Ht 1.829 m (6') Wt 122 kg (269 lb 10 oz) SpO2 94% BMI 36.57 kg/m Smoking Status Never BSA 2.49 m DASI Risk Score Flowsheet Row Pre-Admission Testing from 07/05/2024 in [facility] Can you take care of yourself (eat, dress, bathe, or use toilet)? 2.75 filed at 07/05/2024 1313 Can you walk indoors, such as around your house? 1.75 filed at 07/05/2024 1313 Can you walk a block or two on level ground? 2.75 filed at 07/05/2024 1313 Can you climb a flight of stairs or walk up a hill? 5.5 filed at 07/05/2024 1313 Can you run a short distance? 8 filed at 07/05/2024 1313 Can you do light work around the house like dusting or washing dishes? 2.7 filed at 07/05/2024 1313 Can you do moderate work around the house like vacuuming, sweeping floors or carrying groceries? 3.5 filed at 07/05/2024 1313 Can you do heavy work around the house like scrubbing floors or lifting and moving heavy furniture?8 filed at 07/05/2024 1313 Can you do yard work like raking leaves, weeding or pushing a mower? 0 filed at 07/05/2024 1313 Can you have sexual relations? 5.25 filed at 07/05/2024 1313 Can you participate in moderate recreational activities like golf, bowling, dancing, doubles tennisor throwing a baseball or football? 0 filed at 07/05/2024 1313 Can you participate in strenous sports like swimming, singles tennis, football, basketball, or skiing? 0 filed at 07/05/2024 1313 DASI SCORE 40.2 filed at 07/05/2024 1313 METS Score (Will be calculated only when all the questions are answered) 7.7 filed at 07/05/2024 1313 Caprini DVT Assessment Flowsheet Row Pre-Admission Testing from 07/05/2024 in [facility] DVT Score (IF A SCORE IS NOT CALCULATING, MUST SELECT A BMI TO COMPLETE) 6 filed at 07/05/2024 1340 Surgical Factors Major surgery planned, including arthroscopic and laproscopic (1-2 hours) filed at07/05/2024 1340 BMI (BMI MUST BE CHOSEN) 31-40 (Obesity) filed at 07/05/2024 1340 Modified Frailty Index No data to display CHADS2 Stroke Risk Current as of 4 hours ago N/A 3 to 100%: High Risk 2 to < 3%: Medium Risk 0 to < 2%: Low Risk Last Change: N/A This score determines the patient's risk of having a stroke if the patient has atrial fibrillation. This score is not applicable to this patient. Components are not calculated. Revised Cardiac Risk Index Flowsheet Row Pre-Admission Testing from 07/05/2024 in [facility] High-Risk Surgery (Intraperitoneal, Intrathoracic,Suprainguinal vascular) 0 filed at 07/05/2024 1350 History of ischemic heart disease (History of NM, History of positive exercuse test, Current chest paint considered due to myocardial ischemia, Use of nitrate therapy, ECG with pathological Q Waves) 0 filed at 07/05/2024 1350 History of congestive heart failure (pulmonary edemia, bilateral rales or S3 gallop, Paroxysmal nocturnal dyspnea, CXR showing pulmonary vascular redistribution) 0 filed at 07/05/2024 1350 History of cerebrovascular disease (Prior TIA or stroke) 0 filed at 07/05/2024 1350 Pre-operative insulin treatment 0 filed at 07/05/2024 1350 Pre-operative creatinine>2 mg/dl 0 filed at 07/05/2024 1350 Revised Cardiac Risk Calculator 0 filed at 07/05/2024 1350 Apfel Simplified Score Flowsheet Row Pre-Admission Testing from 07/05/2024 in [facility] Smoking status 1 filed at 07/05/2024 1351 History of motion sickness or PONV 0 filed at 07/05/2024 1351 Use of postoperative opioids 1 filed at 07/05/2024 1351 Gender - Female 0=No filed at 07/05/2024 1351 Apfel Simplified Score Calculator 2 filed at 07/05/2024 1351 Risk Analysis Index Results This Encounter 07/05/2024 1313 Do you live in a place other than your own home?: 0 When did you begin living in the place you are currently residing?: Greater than one year ago Any kidney failure, kidney not working well, or seeing a kidney doctor (mixing machine tender cork gasket)? 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 During the last 3 months has it become difficult for you to remember things or organize your thoughts?: 0 No Have you lost weight of 10 pounds or more in the past 3 months without trying?: 0 No Do you have any loss of appetitie?: 0 No Getting Around (Mobility): 0 Can get around without help Eatin Can plan and prepare own meals Toiletin Can use toilet without any help Personal Hygiene (Bathing, Hand Washing, Changing Clothes): 0 Can shower or bathe without any help MARIE Cancer History: Patient indicates history of cancer Total Risk Analysis Index Score Without Cancer: 17 Total Risk Analysis Index Score: 35 Stop Bang Score Flowsheet Row Pre-Admission Testing from 07/05/2024 in [facility] Do you snore loudly? 1 filed at 07/05/2024 1312 Do you often feel tired or fatigued after your sleep? 0 filed at 07/05/2024 1312 Has anyone ever observed you stop breathing in your sleep? 1 filed at 07/05/2024 1312 Do you have or are you being treated for high blood pressure? 0 filed at 07/05/2024 1312 Recent BMI (Calculated) 34.6 filed at 07/05/2024 1312 Is BMI greater than 35 kg/m2? 0=No filed at 07/05/2024 1312 Age older than 50 years old? 1=Yes filed at 07/05/2024 1312 Is your neck circumference greater than 17 inches (Male) or 16 inches (Female)? 1 filed at 07/05/2024 1312 Gender - Male 1=Yes filed at 07/05/2024 1312 STOP-BANG Total Score 5 filed at 07/05/2024 1312 Prodigy: High Risk Total Score: 8 Prodigy Gender Score ARISCAT Score for Postoperative Pulmonary Complications Flowsheet Row Pre-Admission Testing from 07/05/2024 in [facility] Age Calculated Score 3 filed at 07/05/2024 1353 Preoperative SpO2 0 filed at 07/05/2024 1353 Respiratory infection in the last month Either upper or lower (i.e., URI, bronchitis, pneumonia), with fever and antibiotic treatment 0 filed at 07/05/2024 1353 Preoperative anemia (Hgb less than 10 g/dl) 0 filed at 07/05/2024 1353 Surgical incision 0 filed at 07/05/2024 1353 Duration of surgery 0 filed at 07/05/2024 1353 Emergency Procedure 0 filed at 07/05/2024 1353 ARISCAT Total Score 3 filed at 07/05/2024 1353 Enrique Perioperative Risk for Myocardial Infarction or Cardiac Arrest (PAMELA) Flowsheet Row Pre-Admission Testing from 07/05/2024 in [facility] Calculated Age Score 1.04 filed at 07/05/2024 1353 Functional Status 0 filed at 07/05/2024 1353 ASA Class -5.17 filed at 07/05/2024 1353 Creatinine 0 filed at 07/05/2024 1353 Type of Procedure 0.80 filed at 07/05/2024 1353 PAMELA Total Score -8.58 filed at 07/05/2024 1353 PAMELA % 0.02 filed at 07/05/2024 1353 Assessment and Plan: HPI 54 y/o male scheduled for repair arthroscopy rotator cuff shoulder on 07/12/[address] Burroughs to Tear right rotator cuff; Biceps tendinitis right shoulder. No significant PMHX. PAT isconsulted today for perioperative risk stratification and optimization. Neuro: No neurologic diagnosis, however, the patient is at increased risk for perioperative delirium secondary to age Patient is not at increased risk for perioperative CVA HEENT: No HEENT diagnosis or significant findings on chart review or clinical presentation and evaluation.No further preoperative testing/intervention indicated at this time. Cardiovascular: No CV diagnosis or significant findings on chart review or clinical presentation and evaluation. Nofurther preoperative testing or intervention is indicated at this time. METS: 7.7 RCRI: 0 points, 3.9% risk for postoperative MACE Pulmonary: SAGAR (+) - does not use CPAP Stop Bang score is 5 placing patient at high risk for SAGAR PRODIGY: Moderate risk for opioid induced respiratory depression Pumonary education discussed, patient also provided deep breathing exerciseswith educational handout Renal: No renal diagnosis, however patient is at increase risk for perioperative renal complications secondary to use of an erasmo, arb, or NSAID Endocrine: No endocrine diagnosis or significant findings on chart review or clinical presentation and evaluation. No further testing or intervention is indicated at this time. Hematologic: No hematologic diagnosis, however patient is at an increased risk for DVT Caprini Score 6, patient at High risk for perioperative DVT. Patient provided with VTE education/handout. Gastrointestinal: No GI diagnosis or significant findings on chart review or clinical presentation and evaluation. Apfel [address] Orth[address] Se[address] Dr. Howard on 06/22/2024 for complete tear right rotator cuff Plan for repair arthroscopy rotator cuff shoulder Infectious disease: No infectious diagnosis or significant findings on chart review or clinical presentation and evaluation. Musculoskeletal: No diagnosis or significant findings on chart review or clinical presentation and evaluation. Anesthesia/Airway: No anesthesia complications Medication instructions and NPO guidelines reviewed with the patient. All questions or concerns discussed and addressed. Labs and EKG ordered [facility] Work Phone: [phone] 480-981102-27-2025 History and physical note* Jovany Miller MD - 07/12/2024 10:24 AM EST H&P reviewed. The patient was examined and there are no changes to the H&P. Cosigned by Ramin Howard MD at 07/12/2024 1:19 PM EST Source Note - JOSE Vallejo - 07/05/2024 1:00 PM EST Images from the original note were not included. CPM/PAT Evaluation Name: Jovany Lopez (Jovany Lopez) /Age: 1002/19/1970/54 y.o. Visit Type: In-Person Chief Complaint: Tear right rotator cuff; Biceps tendinitis right shoulder HPI 54 y/o male scheduled for repair arthroscopy rotator cuff shoulder on 07/12/[address] Knoxecondary to Tear right rotator cuff; Biceps tendinitis right shoulder. No significant PMHX. PAT isconsulted today for perioperative risk stratification and optimization. Past Medical History: Diagnosis Date Actinic keratosis Anxiety Arthralgia of right acromioclavicular joint Arthritis Asthma BCC (basal cell carcinoma) right shoulder Biceps tendinitis of right shoulder Complete tear of right rotator cuff Gout IBS (irritable bowel syndrome) Impingement syndrome of right shoulder Incomplete tear of right rotator cuff Labral tear of shoulder, right, sequela Sleep apnea no CPAP Traumatic complete tear of right rotator cuff Wears glasses Past Surgical History: Procedure Laterality Date BACK SURGERY herniated disc repair FOOT SURGERY Left ankle TONSILLECTOMY WRIST SURGERY Right Patient has no history on file for sexual activity. No family history on file. Allergies Allergen Reactions Labetalol Cardiac arrhythmia/arrest Prior to Admission medications Not on File PAT ROS: Constitutional: neg Neuro/Psych: neg Eyes: use of corrective lenses Ears: Nose: Mouth: Throat: Neck: neg Cardio: neg Respiratory: neg Endocrine: GI: neg : neg Musculoskeletal: Decreased ROM in right shoulder Hematologic: neg Skin: Physical Exam Vitals reviewed. Constitutional: Appearance: Normal appearance. HENT: Mouth/Throat: Mouth: Mucous membranes are moist. Pharynx: Oropharynx is clear. Eyes: Pupils: Pupils are equal, round, and reactive to light. Cardiovascular: Rate and Rhythm: Normal rate and regular rhythm. Pulses: Normal pulses. Heart sounds: Normal heart sounds. Pulmonary: Effort: Pulmonary effort is normal. Breath sounds: Normal breath sounds. Abdominal: General: Bowel sounds are normal. Palpations: Abdomen is soft. Musculoskeletal: General: Normal range of motion. Cervical back: Normal range of motion and neck supple. Skin: General: Skin is warm and dry. Neurological: General: No focal deficit present. Mental Status: He is alert and oriented to person, place, and time. Psychiatric: Mood and Affect: Mood normal. Behavior: Behavior normal. Airway Testing/Diagnostic: Patient Specialist/PCP: Visit Vitals BP (!) 133/92 Pulse 84 Temp 36.6 C (97.9 F) Resp 18 Ht 1.829 m (6') Wt 122 kg (269 lb 10 oz) SpO2 94% BMI 36.57 kg/m Smoking Status Never BSA 2.49 m DASI Risk Score Flowsheet Row Pre-Admission Testing from 07/05/2024 in [facility] Can you take care of yourself (eat, dress, bathe, or use toilet)? 2.75 filed at 07/05/2024 1313 Can you walk indoors, such as around your house? 1.75 filed at 07/05/2024 1313 Can you walk a block or two on level ground? 2.75 filed at 07/05/2024 1313 Can you climb a flight of stairs or walk up a hill? 5.5 filed at 07/05/2024 1313 Can you run a short distance? 8 filed at 07/05/2024 1313 Can you do light work around the house like dusting or washing dishes? 2.7 filed at 07/05/2024 1313 Can you do moderate work around the house like vacuuming, sweeping floors or carrying groceries? 3.5 filed at 07/05/2024 1313 Can you do heavy work around the house like scrubbing floors or lifting and moving heavy furniture?8 filed at 07/05/2024 1313 Can you do yard work like raking leaves, weeding or pushing a mower? 0 filed at 07/05/2024 1313 Can you have sexual relations? 5.25 filed at 07/05/2024 1313 Can you participate in moderate recreational activities like golf, bowling, dancing, doubles tennisor throwing a baseball or football? 0 filed at 07/05/2024 1313 Can you participate in strenous sports like swimming, singles tennis, football, basketball, or skiing? 0 filed at 07/05/2024 1313 DASI SCORE 40.2 filed at 07/05/2024 1313 METS Score (Will be calculated only when all the questions are answered) 7.7 filed at 07/05/2024 1313 Caprini DVT Assessment Flowsheet Row Pre-Admission Testing from 07/05/2024 in [facility] DVT Score (IF A SCORE IS NOT CALCULATING, MUST SELECT A BMI TO COMPLETE) 6 filed at 07/05/2024 1340 Surgical Factors Major surgery planned, including arthroscopic and laproscopic (1-2 hours) filed at07/05/2024 1340 BMI (BMI MUST BE CHOSEN) 31-40 (Obesity) filed at 07/05/2024 1340 Modified Frailty Index No data to display CHADS2 Stroke Risk Current as of 4 hours ago N/A 3 to 100%: High Risk 2 to < 3%: Medium Risk 0 to < 2%: Low Risk Last Change: N/A This score determines the patient's risk of having a stroke if the patient has atrial fibrillation. This score is not applicable to this patient. Components are not calculated. Revised Cardiac Risk Index Flowsheet Row Pre-Admission Testing from 07/05/2024 in [facility] High-Risk Surgery (Intraperitoneal, Intrathoracic,Suprainguinal vascular) 0 filed at 07/05/2024 1350 History of ischemic heart disease (History of NM, History of positive exercuse test, Current chest paint considered due to myocardial ischemia, Use of nitrate therapy, ECG with pathological Q Waves) 0 filed at 07/05/2024 1350 History of congestive heart failure (pulmonary edemia, bilateral rales or S3 gallop, Paroxysmal nocturnal dyspnea, CXR showing pulmonary vascular redistribution) 0 filed at 07/05/2024 1350 History of cerebrovascular disease (Prior TIA or stroke) 0 filed at 07/05/2024 1350 Pre-operative insulin treatment 0 filed at 07/05/2024 1350 Pre-operative creatinine>2 mg/dl 0 filed at 07/05/2024 1350 Revised Cardiac Risk Calculator 0 filed at 07/05/2024 1350 Apfel Simplified Score Flowsheet Row Pre-Admission Testing from 07/05/2024 in [facility] Smoking status 1 filed at 07/05/2024 1351 History of motion sickness or PONV 0 filed at 07/05/2024 1351 Use of postoperative opioids 1 filed at 07/05/2024 1351 Gender - Female 0=No filed at 07/05/2024 1351 Apfel Simplified Score Calculator 2 filed at 07/05/2024 1351 Risk Analysis Index Results This Encounter 07/05/2024 1313 Do you live in a place other than your own home?: 0 When did you begin living in the place you are currently residing?: Greater than one year ago Any kidney failure, kidney not working well, or seeing a kidney doctor (mixing machine tender cork gasket)? 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 During the last 3 months has it become difficult for you to remember things or organize your thoughts?: 0 No Have you lost weight of 10 pounds or more in the past 3 months without trying?: 0 No Do you have any loss of appetitie?: 0 No Getting Around (Mobility): 0 Can get around without help Eatin Can plan and prepare own meals Toiletin Can use toilet without any help Personal Hygiene (Bathing, Hand Washing, Changing Clothes): 0 Can shower or bathe without any help MARIE Cancer History: Patient indicates history of cancer Total Risk Analysis Index Score Without Cancer: 17 Total Risk Analysis Index Score: 35 Stop Bang Score Flowsheet Row Pre-Admission Testing from 07/05/2024 in [facility] Do you snore loudly? 1 filed at 07/05/2024 1312 Do you often feel tired or fatigued after your sleep? 0 filed at 07/05/2024 1312 Has anyone ever observed you stop breathing in your sleep? 1 filed at 07/05/2024 1312 Do you have or are you being treated for high blood pressure? 0 filed at 07/05/2024 1312 Recent BMI (Calculated) 34.6 filed at 07/05/2024 1312 Is BMI greater than 35 kg/m2? 0=No filed at 07/05/2024 1312 Age older than 50 years old? 1=Yes filed at 07/05/2024 1312 Is your neck circumference greater than 17 inches (Male) or 16 inches (Female)? 1 filed at 07/05/2024 1312 Gender - Male 1=Yes filed at 07/05/2024 1312 STOP-BANG Total Score 5 filed at 07/05/2024 1312 Prodigy: High Risk Total Score: 8 Prodigy Gender Score ARISCAT Score for Postoperative Pulmonary Complications Flowsheet Row Pre-Admission Testing from 07/05/2024 in [facility] Age Calculated Score 3 filed at 07/05/2024 1353 Preoperative SpO2 0 filed at 07/05/2024 1353 Respiratory infection in the last month Either upper or lower (i.e., URI, bronchitis, pneumonia), with fever and antibiotic treatment 0 filed at 07/05/2024 1353 Preoperative anemia (Hgb less than 10 g/dl) 0 filed at 07/05/2024 1353 Surgical incision 0 filed at 07/05/2024 1353 Duration of surgery 0 filed at 07/05/2024 1353 Emergency Procedure 0 filed at 07/05/2024 1353 ARISCAT Total Score 3 filed at 07/05/2024 1353 Enrique Perioperative Risk for Myocardial Infarction or Cardiac Arrest (PAMELA) Flowsheet Row Pre-Admission Testing from 07/05/2024 in [facility] Calculated Age Score 1.04 filed at 07/05/2024 1353 Functional Status 0 filed at 07/05/2024 1353 ASA Class -5.17 filed at 07/05/2024 1353 Creatinine 0 filed at 07/05/2024 1353 Type of Procedure 0.80 filed at 07/05/2024 1353 PAMELA Total Score -8.58 filed at 07/05/2024 1353 PAMELA % 0.02 filed at 07/05/2024 1353 Assessment and Plan: HPI 54 y/o male scheduled for repair arthroscopy rotator cuff shoulder on 07[facility]12[facility] [facility] right [facility]ator cuff; Biceps tendinitis right shoulder. No significant PMHX. PAT isconsulted today for perioperative risk stratification and optimization. Neuro: No neurologic diagnosis, however, the patient is at increased risk for perioperative delirium secondary to age Patient is not at increased risk for perioperative CVA HEENT: No HEENT diagnosis or significant findings on chart review or clinical presentation and evaluation.No further preoperative testing/intervention indicated at this time. Cardiovascular: No CV diagnosis or significant findings on chart review or clinical presentation and evaluation. Nofurther preoperative testing or intervention is indicated at this time. METS: 7.7 RCRI: 0 points, 3.9% risk for postoperative MACE Pulmonary: SAGAR (+) - does not use CPAP Stop Bang score is 5 placing patient at high risk for SAGAR PRODIGY: Moderate risk for opioid induced respiratory depression Pumonary education discussed, patient also provided deep breathing exerciseswith educational handout Renal: No renal diagnosis, however patient is at increase risk for perioperative renal complications secondary to use of an erasmo, arb, or NSAID Endocrine: No endocrine diagnosis or significant findings on chart review or clinical presentation and evaluation. No further testing or intervention is indicated at this time. Hematologic: No hematologic diagnosis, however patient is at an increased risk for DVT Caprini Score 6, patient at High risk for perioperative DVT. Patient provided with VTE education/handout. Gastrointestinal: No GI diagnosis or significant findings on chart review or clinical presentation and evaluation. Apfel 3 Orthopedic Surgery Seen by Dr. Howard on 06/22/2024 for complete tear right rotator cuff Plan for repair arthroscopy rotator cuff shoulder Infectious disease: No infectious diagnosis or significant findings on chart review or clinical presentation and evaluation. Musculoskeletal: No diagnosis or significant findings on chart review or clinical presentation and evaluation. Anesthesia/Airway: No anesthesia complications Medication instructions and NPO guidelines reviewed with the patient. All questions or concerns discussed and addressed. Labs and EKG ordered documented in this [facility] Work Phone: [phone] History of Present illness Narrative* Ramin Howard MD - 06/22/2024 11:30 AM EST 54-year-old male with traumatic injury to his right shoulder. Patient had slipped and fallen in March 2024 injuring his right shoulder. Since then his shoulder pains been worsening. He complains of pain and weakness has been worsening the right shoulder. He had a steroid injection with no improvement. He is here to review the results of an MRI of his right shoulder Patients' self reported past medical history, medications, allergies, surgical history, family and social history as well as a 10 point review of systems has been documented in the new patient intakeform and scanned into the patient's electronic medical record. The intake form was reviewed by Dr Howard during the office visit and signed by Dr. Howard and the patient. Pertinent findings are documented in the HPI. General Multi-System Physical Exam: Constitutional General appearance: Alert, oriented, and in no acute distress. Well developed, well nourished. Head and Face Head and face: Normocephalic and atraumatic. Ears, Nose, Mouth, and Throat External inspection of ears and nose: Normal. Eyes: Pupils are equal and round. Neck Neck: no neck mass was observed. Pulmonary Respiratory effort: no respiratory distress. Cardiovascular Intact distal pulses. Lymphatic Palpation of lymph nodes in the affected extremity: Normal. Skin Skin and subcutaneous tissue: Normal skin color and pigmentation. Normal skin turgor. No rashes. Neurologic Sensation: normal to light touch. Psychiatric Judgement and insight: Intact. Mood and affect: Normal. Musculoskeletal Right shoulder is 130 degrees of passive abduction forward flexion 60 degrees of external rotation internal rotates to L1 he has positive acromioclavicular joint tenderness with positive crossarm test positive biceps tenderness positive Neer positive [place] positive Jobes with pain and weakness neurovasc intact right upper extremity Dr Howard independently interpreted the patient's MRI (performed by the Radiology department) by viewing the MRI images and this is Dr. Howard's personal interpretation: MRI of the right shoulder shows full-thickness rotator cuff tear of the supraspinatus anteriorly with biceps tendinopathy labral t earing impingement and acromioclavicular joint arthrosis We had a long discussion regards to his right shoulder. We talked about the traumatic rotator cuff tear as well as all of the other symptomatic findings in his shoulder. We talked about a right shoulder scope with arthroscopic rotator cuff repair of the traumatic supraspinatus full-thickness rotator cuff tear, arthroscopic biceps tenodesis, arthroscopic distal clavicle excision, extensive debridement, subacromial decompression partial acromioplasty. Patient decided he wants to proceed with surgery signed appropriate surgical consents for July 12. See him back for surgery sooner if necessary This patient had a traumatic injury to their shoulder and their MRI confirmed a full thickness rotator cuff tear. Excellent literature has proven over and over again that traumatic full-thickness rotator cuff tears do much better with acute surgical repair and have much worse results with delayed surgery. One such piece of literature includes the publication, Early Repair of Traumatic Rotator Cuff Tears Improves Functional Outcomes by Lopez Chowdhury al., published in the Journal of Shoulder and Elbow Surgery, year 2020, 30th Edition, Pages 2953- 6879. In this publication, they clearly show that patients who have traumatic full-thickness rotator cuff tears do much better with surgical repair of the rotator cuff within 3 weeks of their traumatic injury. When surgery was performed greater than 4 months after the traumatic injury, outcomes from the surgery were much worse. In their publication, they specifically conclude, Earlier surgical repair of traumatic rotator cuff tears results in significantly better functional outcomes. Although there is a gradual decline in scores as the repair time increases, surgical rotator cuff repair within 3 weeks of injury is the optimal time forrepair, with further drop-off in function occurring when surgery was performed greater than 4 months after injury. As a result of this publication and other similar publications that prove traumatic full-thickness rotator cuff tears do much better with surgery within 3 weeks of the injury and have much worse results when surgery is delayed more than 4 months after the injury, we must take this patient to the operating room to perform a shoulder arthroscopy and arthroscopic rotator cuff repair as soon as possible. The patient had a traumatic full thickness rotator cuff tear and excellent research shows much better outcomes with surgery as quick as possible after the injury. We will therefore schedule the patient for a shoulder arthroscopy and arthroscopic rotator cuff repair as soon as possible. I, Dr. Howard, had a long discussion with the patient / patient's family regarding the risks versusbenefits of surgery and all of the treatment options, including nonoperative treatment and surgicaltreatment options. We discussed the risks of surgery. The risks of surgery include, but are not limited to, nerve damage, artery damage, muscle damage, risk of bleeding or infection, risk of bone fracture, risk of post-operative stiffness, risk of failure of the surgery with possible continued pain or possible need for additional surgery. Other risks include the risk of hardware pain and possible need for removal of the surgical hardware at another time. The risks of undergoing anesthesia including, but are not limited to, stroke, heart attack or . After a long discussion, the patient / patient's family understood all of the risks versus benefitsof surgery and decided that they wanted to proceed with surgery. The patient / guardian signed appropriate surgical consent forms. Since this patient will be undergoing surgery, I expect the patient to be in significant additionalpain in the immediate postoperative period as a result of the surgical procedure. Non-opioid pain medications will not be sufficient to treat this acute, sharp, postoperative pain. Therefore we will be prescribing the patient narcotic pain medications for the immediate postoperative period in addition to numerous non-narcotic pain medications in order to try to help the patient with their post-operative pain. However, as the pain from surgery subsides, we will work diligently to wean the patient off of all narcotics as quickly as possible. If the patient requires more narcotic pain medications than we typically see with patients undergoing this surgery, we will refer the patient to a paint mixer hand within the first few weeks after their surgical procedure. The patient's OARRS report was reviewed within the last 90 days. The patient's height and weight were documented today in the vitals tab in the patient's EPIC chart, and the patient's BMI was calculated. A follow up plan was then developed by Dr. Howard, per mandated guidelines, based upon the patient's BMI and the follow up plan was documented in the Patient Instructions section of the chart. Weight loss can be achieved by decreasing the amount of calories consumed daily and by increasing daily physical activity. We recommend finding physical activities that you can participate in regularly and you enjoy which do not worsen your current joint pains. This patient has had a major injury to their affected extremity which has significantly traumatizedit. If surgery is not performed to repair the extremity, it is unlikely the patient's extremity would ever function normally again. Non-operative treatment would probably fail, leaving this patient with significant disability. That would classify this problem as an acute injury that poses a threat to the function of the patient's extremity. We discussed their surgery at great length. This is an elective major surgery which is warranted inthis case due to the patient's severely injured extremity. We discussed identified patient and procedural risk factors and how these risk factors may increase the risk of the surgery or influence theoutcome of the surgical procedure. With this procedure, procedural risk factors include, but are not limited to, the risk of infection, bleeding, possible nerve or vasculature injury, mikhail fracture,and the possible risk of continued pain or weakness after the operation. We also discussed how delaying surgery and treating this injury non-operatively may lead to a progression of the injury/disease and high risk of further morbidity. documented in this [facility] Work Phone: [phone] 430-862902-07-2025 Instructions* Patient Instructions* Ramin Howard MD - 06/22/2024 11:30 AM EST BMI was above normal measurement. Current weight: 116 kg (255 lb) Weight change since last visit (-) denotes wt loss 0 lbs Weight loss needed to achieve BMI 25: 71.1 Lbs Weight loss needed to achieve BMI 30: 34.3 Lbs Advised to Increase physical activity. documented in this [facility] Work Phone: [phone] 148-998402-05-2025 History of Present illness Narrative* Ramin Howard MD - 06/20/2024 10:15 AM EST 54-year-old male complains of 3 months of right shoulder pain. Patient stated that shoulder pain inthe right shoulder started traumatically when he slipped and fell on the ice in March 2024. At that time he sustained a major injury to his right shoulder. Since then he is continued having significant pain in the right shoulder. He had a cortisone injection by an outside orthopedic surgeon thatdid not provide him with any improvement. He has been taking anti- inflammatories and doing home exercise program with no improvement. He continues having significant pain in the right shoulder and significant night pain as well as weakness ever since his slip and fall on the ice in March 2024 Patients' self reported past medical history, medications, allergies, surgical history, family and social history as well as a 10 point review of systems has been documented in the new patient intakeform and scanned into the patient's electronic medical record. The intake form was reviewed by Dr Howard during the office visit and signed by Dr. Howard and the patient. Pertinent findings are documented in the HPI. General Multi-System Physical Exam: Constitutional General appearance: Alert, oriented, and in no acute distress. Well developed, well nourished. Head and Face Head and face: Normocephalic and atraumatic. Ears, Nose, Mouth, and Throat External inspection of ears and nose: Normal. Eyes: Pupils are equal and round. Neck Neck: no neck mass was observed. Pulmonary Respiratory effort: no respiratory distress. Cardiovascular Intact distal pulses. Lymphatic Palpation of lymph nodes in the affected extremity: Normal. Skin Skin and subcutaneous tissue: Normal skin color and pigmentation. Normal skin turgor. No rashes. Neurologic Sensation: normal to light touch. Psychiatric Judgement and insight: Intact. Mood and affect: Normal. Musculoskeletal Right shoulder is 110 degrees of active abduction forward flexion 135 degrees of passive abduction forward flexion 60 degrees of external rotation internally rotates to L1 he has positive biceps tenderness with pain in the bicipital groove positive acromioclavicular joint tenderness with positive crossarm test positive Neer positive [place] positive Jobes with pain and significant weakness. Neurovasc intact right upper extremity X-rays of the patient were ordered by Dr Howard and obtained today. Dr Howard personally reviewed the results of the x-rays. In addition, Dr Howard independently interpreted the patient's x-rays (performed by the Radiology department) by viewing the x-ray images and this is Dr. Howard's personal interpretation: X-rays right shoulder shows some acromioclavicular joint arthritis but normal glenohumeral joint I explained the patient that I am concerned about a full-thickness rotator cuff tear in his right shoulder. The patient is only 54 years old and had a traumatic injury when the pain started 3 months ago. He had slipped and fallen on the ice. I am concerned about a traumatic rotator cuff tear in theright shoulder. Therefore we need to get a stat MRI of the right shoulder and I will see him back afterwards discussed the results. This patient had a traumatic injury to their shoulder and based upon their history and physical examination, I am concerned that they have a traumatic full-thickness rotator cuff tear of their shoulder. Excellent literature has proven over and over again that traumatic full-thickness rotator cuff tears do much better with acute surgical repair and have much worse results with delayed surgery. Onesuch piece of literature includes the publication, Early Repair of Traumatic Rotator Cuff Tears Improves Functional Outcomes by Lopez Angeles et al., published in the Journal of Shoulder and ElbowSurgery, year 2020, 30th Edition, Pages 5233-2135. In this publication, they clearly show that patients who have traumatic full-thickness rotator cuff tears do much better with surgical repair of therotator cuff within 3 weeks of their traumatic injury. When surgery was performed greater than 4 months after the traumatic injury, outcomes from the surgery are much worse. In their publication, they specifically state, It is important for all providers to be aware that surgical timing in traumatic rotator cuff tears is important and early MRI diagnosis is also important. In our experience, themean time to initial presentation to an orthopedic surgeon was nearly 2 months after the injury. Owing to the delayed presentation to an orthopedic surgeon and a gradual decline in outcomes that occurs with a delayed operation, it is imperative for providers to obtain MRI scans expediently to allowfor the best outcomes. As a result of this publication and other similar publications that prove traumatic full-thickness rotator cuff tears do much better with surgery within 3 weeks of the injury and have much worse results when surgery is delayed more than 4 months after the injury, we must obtain a STAT MRI of this patient's shoulder to evaluate for full-thickness rotator cuff tear. The patient had a traumatic injury and if they have a full-thickness rotator cuff tear, excellent research shows much better outcomes with surgery as quick as possible after the injury. We will therefore order a stat MRI of the patient's shoulder to evaluate for full-thickness rotator cuff tear and see the patient back as soon as the MRI has been completed to discuss the results. The patient's height and weight were documented today in the vitals tab in the patient's EPIC chart, and the patient's BMI was calculated. A follow up plan was then developed by Dr. Howard, per mandated guidelines, based upon the patient's BMI and the follow up plan was documented in the Patient Instructions section of the chart. Weight loss can be achieved by decreasing the amount of calories consumed daily and by increasing daily physical activity. We recommend finding physical activities that you can participate in regularly and you enjoy which do not worsen your current joint pains. This patient has a new, acute, previously-undiagnosed problem of their affected extremity. We will begin treatment as listed here and monitor treatment based upon their progression and response to treatment. Due to the fact that we are just beginning treatment on this issue, this is currently considered an undiagnosed new problem with uncertain prognosis. The exact diagnosis and their prognosis will depend upon their response to treatment and progression of their condition as time progresses. Due to this patient's condition, they are at a moderate risk of morbidity from additional diagnostic testing / treatment. documented in this [facility] Work Phone: [phone]) 594-396802-05-2025 Instructions* Patient Instructions* Ramin Howard MD - 06/20/2024 10:15 AM EST BMI was above normal measurement. Current weight: 116 kg (255 lb) Weight change since last visit (-) denotes wt loss 255 lbs Weight loss needed to achieve BMI 25: 71.1 Lbs Weight loss needed to achieve BMI 30: 34.3 Lbs Advised to Increase physical activity. documented in this [facility] Work Phone: 1([phone]) 464-696602-03-2025 History of Present illness Narrative* Favio Teresa MD - 06/18/2024 8:30 AM EST Images from the original note were not included. Patient ID: Jovany Lopez is a 54 y.o. male who presents for: Pt is here today for a follow up from last week on the shoulder pain. He had XR done to be sure there were no fx after his fall. He does desire to have it injected today. I have previously discussed with him the results of his x-ray. He probably does not need to ultimately see orthopedics. After discussion with him they are trying to decide who they would like to see.They can let me know if they need a referral to whichever doctor. Objective Essentially unchanged. There is no specific edema, rubor, calor in the area. Visit Vitals Smoking Status Never Allergies Allergen Reactions Labetalol Other Reaction(s): heart stopped Current Outpatient Medications on File Prior to Visit Medication Sig Dispense Refill acetaminophen (Tylenol) 500 MG tablet Take 1,000 mg by mouth every 6 (six) hours if needed for mildpain ibuprofen 200 MG tablet Take 200 mg by mouth in the morning and 200 mg in the evening and 200 mg before bedtime. indomethacin (Indocin) 50 MG capsule Take 50 mg by mouth in the morning and 50 mg in the evening. Take with meals. No current facility-administered medications on file prior to visit. 1. Chronic right shoulder pain (Primary) We discussed the options and he would like the injection. He understands it needs to be at least 1 month before he considers actual surgery. We also discussed and I want him to use anti-inflammatory regularly for 2 weeks and I have asked him to marked out on the calendar. In prescribing a new medication consideration of the following encompasses moderate decision making: the current prescriptions and supplements, the current allergies and medication intolerances, the current medical conditions, and potential drug interactions. Risks, benefits, and reason for starting their medication were discussed. The patient was given a chance to ask questions today and all questions were answered. The patient is to contact us if any other questions arise or if any problems occur with the adjustment in their medication. - nabumetone (Relafen) 750 MG tablet; Take 1 tablet (750 mg) by mouth in the morning and 1 tablet (750 mg) before bedtime. Dispense: 180 tablet; Refill: 0 - methylPREDNISolone acetate (DEPO-Medrol) injection 40 mg 2. Arthritis of right acromioclavicular joint Chronic problem that is a component of his shoulder pain but minimally so and not the primary source. 3. Rotator cuff syndrome of right shoulder Chronic problem and we did redemonstrate they empty can test today caused him significant pain. He was able to complete it. Prior to the injection informed consent was obtained, the risks include; bleeding or bruising, infection, dimpling of the skin, post injection pain, and the possibility of no improvement to the patient's complaints. The injection to the shoulder was done with the patient in a seated position. The skin was prepped with alcohol until no further debri was removed, and then betadine was appliedand allowed to dry. A 25 gauge, 1-1/2 inch needle was inserted into the subacromial bursa using a posterior approach. Once within the bursa after aspiration obtained no blood, I injected a solution of 40 mg of Depo-Medrol. The needle was removed and a dressing was applied The patient tolerated the procedure well. The patient has been instructed in postprocedure care - methylPREDNISolone acetate (DEPO-Medrol) injection 40 mg 4. Hill-Sachs lesion of right shoulder Eventual referral to orthopedics. documented in this encounterCox [id number] History of Present illness Narrative* Favio Teresa MD - 06/14/2024 9:00 AM EST Images from the original note were not included. Patient ID: Jovany Lopez is a 54 y.o. male who presents for: Shoulder Pain: Pt presents with right shoulder pain. The symptoms began several months ago. Aggravating factors: slipped on ice the Tuesday after thanksgiving went airborn but came down on the right side hard . Painis located diffusely throughout the shoulder. Discomfort is described as aching, sharp/stabbing, and throbbing. Symptoms are exacerbated by repetitive movements. Review of Systems Constitutional: Negative for chills and fever. Respiratory: Negative for cough, shortness of breath and wheezing. Cardiovascular: Negative for chest pain and palpitations. Gastrointestinal: Negative for abdominal pain. Genitourinary: Negative for frequency and urgency. Objective The patient is pleasant and in no acute distress The patient has good eye contact and clear speech The right shoulder does not demonstrate any visible swelling, bruising, increase in calor or rubor. Right shoulder: There is some mild tenderness over AC joint. Demonstrates painful arc. Tenderness to empty can test, abduction, and external rotation. No significant tenderness to internal rotation. No tenderness of the biceps or palpable biceps tendon region. Visit Vitals Ht 6' Wt 255 lb BMI 34.58 kg/m Smoking Status Never BSA 2.43 m Allergies Allergen Reactions Labetalol Other Reaction(s): heart stopped Current Outpatient Medications on File Prior to Visit Medication Sig Dispense Refill acetaminophen (Tylenol) 500 MG tablet Take 1,000 mg by mouth every 6 (six) hours if needed for mildpain ibuprofen 200 MG tablet Take 200 mg by mouth in the morning and 200 mg in the evening and 200 mg before bedtime. indomethacin (Indocin) 50 MG capsule Take 50 mg by mouth in the morning and 50 mg in the evening. Take with meals. No current facility-administered medications on file prior to visit. 1. Fall due to slipping on ice or snow, initial encounter (Primary) This was several months now and he still struggling. He has had multiple previous dislocations. We have mutually agreed due to the trauma we should be evaluating diagnostic imaging. Assuming that there is no fracture we discussed and he would like to have the shoulder injected with steroids. - XR shoulder 2+ views right; Future 2. Injury of right shoulder, initial encounter As above - XR shoulder 2+ views right; Future 3. Acute pain of right shoulder As above - XR shoulder 2+ views right; Future 4. Non morbid obesity due to excess calories 5. History of closed dislocation of shoulder As above and complicates evaluation documented in this encounterCox [id number] History of Present illness Narrative* Favio Teresa MD - 01/31/2024 8:30 AM EDT Images from the original note were not included. Patient ID: Jovany Lopez is a 53 y.o. male who presents for: Pt has been having problems with ear aches and states he is still having ear plugging and diminished hearing. Both ears are bothering him but the right ear is worse. It has been problematic off and on for 3 months. He does have some intermittent tinnitis as ell. Review of Systems Constitutional: Negative for chills and fever. HENT: Positive for ear pain. Respiratory: Negative for cough, shortness of breath and wheezing. Cardiovascular: Negative for chest pain and palpitations. Gastrointestinal: Negative for abdominal pain. Genitourinary: Negative for frequency and urgency. Objective Bilateral cerumen impaction right greater than left. Visit Vitals Ht 6' Wt 255 lb BMI 34.58 kg/m Smoking Status Never BSA 2.43 m Allergies Allergen Reactions Labetalol Other Reaction(s): heart stopped Current Outpatient Medications on File Prior to Visit Medication Sig Dispense Refill acetaminophen (Tylenol) 500 MG tablet Take 1,000 mg by mouth every 6 (six) hours if needed for mildpain ibuprofen 200 MG tablet Take 200 mg by mouth in the morning and 200 mg in the evening and 200 mg before bedtime. indomethacin (Indocin) 50 MG capsule Take 50 mg by mouth in the morning and 50 mg in the evening. Take with meals. [DISCONTINUED] methylPREDNISolone (Medrol Dospak) 4 MG tablets Follow schedule on package instructions 21 tablet 0 No current facility-administered medications on file prior to visit. 1. Bilateral impacted cerumen I used a combination of manual removal an ear flush with 50 50 peroxide and water. Both ear canals were clear after the procedure. Patient had noticeably improved hearing and denied pain. His ear canals were slightly reddened. I discussed with him and he will put in a tsp of white vinegar in the each year soon as he gets home and again tonight before bedtime. He developed further ear pain in the next couple of days he will call us for prescription drops. documented in this encounterCox [id number] History of Present illness Narrative* Rhett Ruiz NP - 01/03/2024 10:45 AM EDT Images from the original note were not included. NAME: Jovany Lopez : 1970 HISTORY OF PRESENT ILLNESS: Jovany Lopez is an 53 y.o. @ male. S/p MDP RT wrist pain x 3 months, 09/2023. Went to [facility] ER 10/10/23, had XR. Given prednisone, augmentin and velcro splint. F/U with PCP 10/10 (given indocin) and 12/18. Had another XR at [facility] 12/18. Hx of gout and previous fracture that required sx. 30% improvement. Pain over radial aspect. Sometimes pain is over ulna. No longer radiating to fingers. Little improvement with ROM. Now able to do push ups and bench, still has some pain while doing it. Does not wake at HS. Wears splint at HS. No longer taking indocin. Taking advil prn, mostly for back. Denies swelling. Prior tx: [facility] ER 10/10/23, XR TB, prednisone, augmentin, velcro splint, PCP, indocin, XR [facility] 12/19/23, [facility], MDP 12/2023 RT handed. PAST MEDICAL HISTORY: Past Medical History: Diagnosis Date Actinic keratosis Acute gout Anxiety state (CMS/HCC) Asthma (CMS/HCC) unspecified, unspecified status Basal cell carcinoma Basal cell carcinoma (BCC) right shoulder COVID-19 Irritable bowel syndrome (IBS) PAST SURGICAL HISTORY: Past Surgical History: Procedure Laterality Date BACK SURGERY FOOT SURGERY 1990 d/t football injury TONSILLECTOMY WRIST SURGERY 1997 ALLERGIES: Allergies Allergen Reactions Labetalol Other Reaction(s): heart stopped HOME MEDICATIONS: Current Outpatient Medications Medication Instructions acetaminophen (TYLENOL) 1,000 mg, Oral, Every 6 hours PRN allopurinol (ZYLOPRIM) 300 mg, Oral, Daily, To be filled after 100mg is complete ibuprofen 200 mg, Oral, 3 times daily indomethacin (INDOCIN) 50 mg, Oral, 2 times daily with meals methylPREDNISolone (Medrol Dospak) 4 MG tablets Follow schedule on package instructions Vitals: There is no height or weight on file to calculate BMI. PHYSICAL EXAM: Right Hand Exam Tenderness Right hand tenderness location: dorsal wrist, improved since MDP. Range of Motion Wrist Extension: 40 (pain with terminal extension) Flexion: 60 (pain with terminal flexion) Muscle Strength Quarter Inspector: 5/5 Other Scars: present (previous surgery) Sensation: normal Pulse: present IMAGING: XR abdomen 1 view XR - ABDOMEN 1 VIEW Reason for exam: Right flank pain Views: 1 view in 4 images Imaging findings: No stones are identified. The abdominal bowel gas pattern is nonobstructive. No mass, organomegaly,or suspicious calcification. Negative for free intraperitoneal air. The skeleton is unremarkable. Impression: No acute findings. Dictated on: 12/19/2023 2:50 PM This report has been electronically signed and approved by the interpreting Radiologist. Electronically Signed Silverio Rodgers M.D. 2023-12-19 14:51:14 XR wrist 1 or 2 views right XR - RT WRIST 2 VIEWS Reason for exam: Right wrist pain Views: 2 Findings: The alignment is notable for widening of the space between the lunate and the scaphoid, with surgical anchors in both bones. No fracture, dislocation or other acute pathology is demonstrated. No soft tissue abnormalities are seen. Impression: Postop changes related to scapholunate separation. No acute findings. Dictated on: 12/19/2023 2:27 PM This report has been electronically signed and approved by the interpreting Radiologist. Electronically Signed Silverio Rodgers M.D. 2023-12-19 14:31:08 Procedures ASSESSMENT: ICD-10-CM 1. Osteoarthritis of right wrist, unspecified osteoarthritis type M19.031 2. Right wrist pain M25.531 PLAN: Patient states that he had good relief with MDP and has had some improvement in ROM as well. He would like to wait on IA injection of right wrist as he is getting relief with current treatment. Follow up in 4 weeks and if still painful consider IA injection of right wrist Questions answered in laymen terms at the bedside. The diagnosis, home exercise plan and any ongoing restrictions/ recommendations reviewed. If unable to be reached in office, I recommend evaluation at nearest Emergency Room if any symptoms worsened or new symptoms develop for requiring urgent evaluation. Rhett Ruiz APRN-[employer] documented in this encounterNOPR HealthcareEvaluation noteNo assessment information availableClinton Memorial Hospital Work Phone: Evaluation note* Diagnosis Bilateral impacted cerumen Impacted cerumen documented in this encounter [facility]* Diagnosis Osteoarthritis of right wrist, unspecified osteoarthritis type- Primary Right wrist pain Pain in joint, forearm documented in this encounter [facility]* Diagnosis Chronic right shoulder pain- Primary Pain in joint, shoulder region Arthritis of right acromioclavicular joint Rotator cuff syndrome of right shoulder Hill-Sachs lesion of right shoulder documented in this encounter [facility] HealthcareEvaluation note* Diagnosis Fall due to slipping on ice or snow, initial encounter- Primary Injury of right shoulder, initial encounter Acute pain of right shoulder Non morbid obesity due to excess calories History of closed dislocation of shoulder Fall due to slipping on ice or snow, initial encounter Injury of right shoulder, initial encounter Acute pain of right shoulder documented in this encounter [facility] HealthcareEvaluation note* Diagnosis Complete tear of right rotator cuff, unspecified whether traumatic- Primary Right shoulder pain, unspecified chronicity Traumatic tear of right rotator cuff, unspecified tear extent, initial encounter Biceps tendinitis of right shoulder Impingement syndrome of right shoulder Labral tear of shoulder, right, initial encounter documented in this encounter [facility] Work Phone: Evaluation note* Diagnosis Traumatic tear of right rotator cuff, unspecified tear extent, initial encounter documented in this encounter [facility] Work Phone: Evaluation note* Diagnosis Right shoulder pain, unspecified chronicity documented in this encounter [facility] Work Phone: Evaluation note* Diagnosis Complete tear of right rotator cuff, unspecified whether traumatic- Primary Incomplete tear of right rotator cuff, unspecified whether traumatic Biceps tendinitis of right shoulder Impingement syndrome of right shoulder Labral tear of shoulder, right, initial encounter Arthralgia of right acromioclavicular joint Traumatic complete tear of right rotator cuff, initial encounter Complete tear of right rotator cuff Incomplete tear of right rotator cuff Biceps tendinitis of right shoulder Impingement syndrome of right shoulder Labral tear of shoulder, right, initial encounter Arthralgia of right acromioclavicular joint Traumatic complete tear of right rotator cuff Complete tear of right rotator cuff, unspecified whether traumatic Incomplete tear of right rotator cuff, unspecified whether traumatic Biceps tendinitis of right shoulder Impingement syndrome of right shoulder Labral tear of shoulder, right, initial encounter Arthralgia of right acromioclavicular joint Traumatic complete tear of right rotator cuff, initial encounter documented in this encounter [facility] Work Phone: Evaluation note* Diagnosis Acute post-operative pain- Primary Complete tear of right rotator cuff, unspecified whether traumatic [M75.121] Incomplete tear of right rotator cuff, unspecified whether traumatic [M75.111] Biceps tendinitis of right shoulder [M75.21] Impingement syndrome of right shoulder [M75.41] Labral tear of shoulder, right, initial encounter [S43.431A] Arthralgia of right acromioclavicular joint [M25.511] Traumatic complete tear of right rotator cuff, initial encounter [S46.011A] documented in this encounter [facility] Work Phone: Evaluation note* Diagnosis Seborrheic keratosis- Primary History of basal cell carcinoma Personal history of other malignant neoplasm of skin Capillary angioma Nevus, non-neoplastic Lentigines Seborrheic keratosis, inflamed [facility] Diagnosis Status post right rotator cuff repair- Primary documented in this encounter [facility] Work Phone: Evaluation note* Diagnosis Acute pain of right shoulder- Primary S/P arthroscopy of right shoulder [facility] Diagnosis Acute pain of right shoulder- Primary S/P arthroscopy of right shoulder [facility]* Diagnosis Acute pain of right shoulder- Primary S/P arthroscopy of right shoulder [facility]* Diagnosis Acute pain of right shoulder- Primary S/P arthroscopy of right shoulder documented [facility]* Diagnosis Acute pain of right shoulder- Primary S/P arthroscopy of right shoulder [facility]* Diagnosis Acute pain of right shoulder- Primary S/P arthroscopy of right shoulder documented [facility]* Diagnosis Acute pain of right shoulder- Primary S/P arthroscopy of right shoulder documented in this encounter [facility]* Diagnosis Acute pain of right shoulder- Primary S/P arthroscopy of right shoulder documented in this encounter [facility]* Diagnosis Status post right rotator cuff repair- Primary documented in this encounter [facility] Work Phone: Evaluation note* Diagnosis RUQ abdominal pain- Primary Abdominal pain, right upper quadrant Chronic constipation Unspecified constipation [facility] this [facility] Narrative* Imaging (Emergency) - Authorized SpecialtyDiagnoses / ProceduresReferred By ContactReferred To ContactRadiology Diagnoses Traumatic tear of right rotator cuff, unspecified tear extent, initial encounter Procedures MR [place] [address] [facility] [place] [address] Phone: tel: fax: Referral IDStatusReasonStart DateExpiration DateVisits RequestedVisits [id number] Perform Procedure [facility] Work Phone: reason for visit Narrative* Imaging (Routine) - AuthorizedSpecialtyDiagnoses / ProceduresReferred By ContactReferred To ContactRadiology Diagnoses Right shoulder pain, unspecified chronicity Procedures XR shoulder right 2+ [place] [address] [place] [address] Phone: tel: fax: Referral IDStatusReasonStart DateExpiration DateVisits RequestedVisits [id number] Perform Procedure [facility] Work Phone: reason for visit Narrative* Auth/CertSpecialty Diagnoses / ProceduresReferred By ContactReferred To Contact Diagnoses Complete tear of right rotator cuff, unspecified whether traumatic Incomplete tear of right rotator cuff, unspecified whether traumatic Biceps tendinitis of right shoulder Impingement syndrome of right shoulder Labral tear of shoulder, right, initial encounter Arthralgia of right acromioclavicular joint Traumatic complete tear of right rotator cuff, initial encounter Complete tear of right rotator cuff, unspecified whether traumatic [M75.121] Incomplete tear of right rotator cuff, unspecified whether traumatic [M75.111] Biceps tendinitis of right shoulder [M75.21] Impingement syndrome of right shoulder [M75.41] Labral tear of shoulder, right, initial encounter [S43.431A] Arthralgia of right acromioclavicular joint [M25.511] Traumatic complete tear of right rotator cuff, initial encounter [S46.011A] Procedures AL SURGICAL ARTHROSCOPY SHOULDER W/ROTATOR CUFF RPR AL SURGICAL ARTHROSCOPY SHOULDER BICEPS TENODESIS AL SURGICAL ARTHROSCOPY SHOULDER XTNSV DBRDMT 3+ AL SURGICAL ARTHROSCOPY LISA W/CORACOACRM LIGM RLS AL SURGICAL ARTHROSCOPY SHOULDER DSTL CLAVICULC REPAIR ARTHROSCOPY [place] [address] [address] [facility] [place] [address] Phone: tel: fax: [place] [address] [place] [address] fax: Referral IDStatusReasonStart DateExpiration DateVisits RequestedVisits [id number] [facility] Work Phone: Remsbs for visit Narrative* Rehabilitation - Outpatient (Routine) - AuthorizedSpecialtyDiagnoses / ProceduresReferred By ContactReferred To ContactPhysical Therapy Diagnoses Complete rotator cuff tear or rupture of right shoulder, not specified as traumatic Procedures AL PHYSICAL THERAPY EVALUATION LOW COMPLEX 20 MINS AL OFFICE/OUTPATIENT [facility] 60 MINUTES Duane Howard MD [address] [place] [address] Phone: tel: fax: Regina Au, PT [address] [address] Phone: tel: fax: Referral IDStatusReasonStart DateExpiration DateVisits RequestedVisits [id number]/ [facility] HealthcareReason for [facility] Narrative* Rehabilitation - Outpatient (Routine) - ClosedSpecialtyDiagnoses / ProceduresReferred By ContactReferred To Contact Physical Therapy Diagnoses Complete rotator cuff tear or rupture of right shoulder, not specified as traumatic Procedures AL PHYSICAL THERAPY EVALUATION LOW COMPLEX 20 MINS AL OFFICE/OUTPATIENT NEW [facility]IGH [facility] 60 MINUTES Duane Howard MD [address] [place] [address] Phone: tel: fax: Regina Au, PT [address] [address] Phone: tel: fax: Referral IDStatusReasonStart DateExpiration DateVisits RequestedVisits [id number]/[id number]/[id number] [facility] HealthcareReason for visit Narrative* Rehabilitation - Outpatient (Routine) - AuthorizedSpecialtyDiagnoses / ProceduresReferred By ContactReferred To ContactPhysical Therapy Diagnoses Complete rotator cuff tear or rupture of right shoulder, not specified as traumatic Procedures AL THER PX 1/> AREAS EACH 15 MIN NEUROMUSC REEDUCA AL THERAPEUTIC PX 1/> AREAS EACH 15 MIN EXERCISES AL MANUAL THERAPY TQS 1/> REGIONS EACH 15 MINUTES PHYS/OCC THERAPY SS Duane Howard MD [address] [place] [address] Phone: tel: fax: Regina Au, PT [address] [address] Phone: tel: fax: Referral IDStatusReasonStart DateExpiration DateVisits RequestedVisits [id number]/ [facility] for [facility] Narrative* Rehabilitation - Outpatient (Routine) - AuthorizedSpecialtyDiagnoses / ProceduresReferred By ContactReferred To ContactPhysical Therapy Diagnoses Complete rotator cuff tear or rupture of right shoulder, not specified as traumatic Procedures AL THER PX 1/> AREAS EACH 15 MIN NEUROMUSC REEDUCA AL THERAPEUTIC PX 1/> AREAS EACH 15 MIN EXERCISES AL MANUAL THERAPY TQS 1/> REGIONS EACH 15 MINUTES PHYS/OCC THERAPY Duane Gardiner PA [address] [place] [address] Phone: tel: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
== END 2025-04-09 07:39 | disposition home or self-care (01) ==
LOC: CT 07:39
PROVIDERS: PCP Family Medicine; Visit Provider Family Medicine
DX: R10.11 Right upper quadrant pain (principal); R10.31 Right lower quadrant pain; R16.0 Hepatomegaly, not elsewhere classified; K58.0 Irritable bowel syndrome with diarrhea; K76.0 Fatty (change of) liver, not elsewhere classified; R16.1 Splenomegaly, not elsewhere classified
CPT/HCPCS: 74177; Q9967